=== PATIENT | female | born 1950 | race Caucasian/White ===

== ENCOUNTER 2019-10-22 15:55 | Inpatient (IN) ==
[2019-10-22] MEDS ORDERED: Ondansetron 4 MG/2 ML VIAL IVP PRN (19:24)
[2019-10-22] MEDS ORDERED: Naloxone 0.4 MG/ML INJ IVP PRN (19:24)
[2019-10-22] MEDS ORDERED: 0.9 % Sodium Chloride 1,000 ML IVC SCH ×2 (19:30→21:08)
[2019-10-22 21:57] LABS: Basophils % 0.2 %; Eosinophils % 0.2 %; Hematocrit 32.5 % (35.3-44.9); Hemoglobin 10.6 g/dL (11.5-15.4); Immature Granulocytes % 0.9 % (0-4); Lymphocytes # 0.9 K/mcL (0.6-4.6); Lymphocytes % 5.6 %; Mean Corpuscular HGB Conc 32.6 g/dL (31.6-35.5); Mean Corpuscular Hemoglobin 27.5 pg (28.0-33.3); Mean Corpuscular Volume 84.4 fL (83.0-100.0); Mean Platelet Volume 9.2 fL (9.4-12.4); Monocytes % 6.2 %; Neutrophils # 14.1 K/mcL (1.6-8.9); Platelet Count 367 K/mcL (140-400); Red Blood Count 3.85 M/mcL (3.82-4.97); Red Cell Distribution Width 15.2 % (11.5-14.5); Segmented Neutrophils % 86.9 %; White Blood Count 16.2 K/mcL (4.3-11.1)
[2019-10-22] MEDS: Ringers Solution, Lactated 1,000 ML IVC SCH (22:12)
[2019-10-22] MEDS: cefTRIAXone 1,000 MG in Water for inj. (sterile) 10 ML IVPB SCH (22:12)
[2019-10-22 22:18] LABS: Albumin 2.4 g/dL (3.5-5.7); Albumin/Globulin Ratio 0.6 (1.1-2.2); Bilirubin,Direct 0.1 mg/dL (0.0-0.2); Bilirubin,Indirect 0.3 mg/dL (0.0-1.0); Bilirubin,Total 0.4 mg/dL (0.3-1.0); Calcium 8.2 mg/dL (8.6-10.3); Globulin 4.1 g/dL (2.4-3.5); Potassium 3.5 mEq/L (3.5-5.1); Total Protein 6.5 g/dL (6.4-8.9)
[2019-10-23 01:47] LABS: Sodium, Urine 54.6 mEq/L
[2019-10-23 02:46] LABS: Basophils % 0.3 %; Eosinophils % 0.2 %; Hematocrit 28.8 % (35.3-44.9); Hemoglobin 9.6 g/dL (11.5-15.4); Lymphocytes # 0.9 K/mcL (0.6-4.6); Lymphocytes % 6.7 %; Mean Corpuscular HGB Conc 33.3 g/dL (31.6-35.5); Mean Corpuscular Hemoglobin 28.1 pg (28.0-33.3); Mean Corpuscular Volume 84.2 fL (83.0-100.0); Mean Platelet Volume 9.6 fL (9.4-12.4); Monocytes % 7.2 %; Neutrophils # 11.8 K/mcL (1.6-8.9); Platelet Count 328 K/mcL (140-400); Red Blood Count 3.42 M/mcL (3.82-4.97); Red Cell Distribution Width 15.1 % (11.5-14.5); Segmented Neutrophils % 84.6 %; White Blood Count 13.9 K/mcL (4.3-11.1)
[2019-10-23 03:04] LABS: Albumin 2.2 g/dL (3.5-5.7); Albumin/Globulin Ratio 0.6 (1.1-2.2); Bilirubin,Total 0.4 mg/dL (0.3-1.0); Calcium 7.6 mg/dL (8.6-10.3); Globulin 3.8 g/dL (2.4-3.5); Potassium 3.2 mEq/L (3.5-5.1)
[2019-10-23] MEDS: Ringers Solution, Lactated 1,000 ML IVC SCH ×3 (05:37→20:19)
[2019-10-23] MEDS ORDERED: cefTRIAXone 1,000 MG in Water for inj. (sterile) 10 ML IVP SCH (09:00)
[2019-10-23] MEDS: Gabapentin 100 MG CAPSULE PO SCH ×2 (15:32→20:18)
[2019-10-23] MEDS: ALPRAZolam 1 MG TABLET PO SCH ×2 (15:36→20:18)
[2019-10-23] MEDS: cefTRIAXone 1,000 MG in Water for inj. (sterile) 10 ML IVPB SCH (20:19)
[2019-10-23] MEDS ORDERED: rOPINIRole 1 MG TABLET PO SCH (21:00)
[2019-10-24 02:10] LABS: Hematocrit 27.1 % (35.3-44.9); Hemoglobin 8.8 g/dL (11.5-15.4); Mean Corpuscular HGB Conc 32.5 g/dL (31.6-35.5); Mean Corpuscular Hemoglobin 27.6 pg (28.0-33.3); Mean Platelet Volume 9.5 fL (9.4-12.4); Platelet Count 276 K/mcL (140-400); Red Blood Count 3.19 M/mcL (3.82-4.97); Red Cell Distribution Width 15.4 % (11.5-14.5); White Blood Count 10.7 K/mcL (4.3-11.1)
[2019-10-24 02:32] LABS: Calcium 7.5 mg/dL (8.6-10.3); Potassium 4.2 mEq/L (3.5-5.1)
[2019-10-24] MEDS: Ringers Solution, Lactated 1,000 ML IVC SCH (04:28)
[2019-10-24] MEDS: ALPRAZolam 1 MG TABLET PO SCH ×2 (07:57→20:03)
[2019-10-24] MEDS: Gabapentin 100 MG CAPSULE PO SCH (07:57)
[2019-10-24] MEDS ORDERED: Lidocaine -MPF 2% 5 ML VIAL ONE (08:05)
[2019-10-24] MEDS ORDERED: Famotidine 20 MG/2 ML VIAL ONE (08:05)
[2019-10-24] MEDS ORDERED: Acetaminophen IV 1,000 MG/100 ML INFUS..BTL ONE (08:05)
[2019-10-24] MEDS ORDERED: *HR* FentaNYL (PF) 100 MCG/2 ML VIAL ONE (08:15)
[2019-10-24] MEDS ORDERED: *HR* Propofol 200 MG/20 ML VIAL IVP ONE (08:15)
[2019-10-24] MEDS ORDERED: Lidocaine -MPF 2% 2 ML VIAL ONE (08:16)
[2019-10-24] MEDS ORDERED: Ondansetron 4 MG/2 ML VIAL ONE (08:16)
[2019-10-24] MEDS ORDERED: Dexamethasone 4 MG/ML VIAL ONE (08:16)
[2019-10-24] MEDS ORDERED: Isovue-300 50ML VIAL ONE (08:55)
[2019-10-24] MEDS ORDERED: *HR* HYDROMORPHONE 2 MG/ML VIAL ONE (09:05)
[2019-10-24] MEDS ORDERED: Ondansetron 4 MG/2 ML VIAL IVP PRN (10:47)
[2019-10-24] MEDS ORDERED: Naloxone 0.4 MG/ML INJ IVP PRN (10:47)
[2019-10-24] MEDS ORDERED: Gabapentin 100 MG CAPSULE PO SCH (15:00)
[2019-10-24] MEDS ORDERED: ALPRAZolam 1 MG TABLET PO SCH (15:00)
[2019-10-24] MEDS: Iron Sucrose Complex 400 MG in 0.9 % Sodium Chloride 250 ML IVPB SCH (16:19)
[2019-10-24] MEDS: rOPINIRole 1 MG TABLET PO SCH (20:02)
[2019-10-24] MEDS ORDERED: cefTRIAXone 1,000 MG in Water for inj. (sterile) 10 ML IVPB SCH (21:00)
[2019-10-25 07:26] LABS: Hematocrit 30.3 % (35.3-44.9); Hemoglobin 9.6 g/dL (11.5-15.4); Mean Corpuscular HGB Conc 31.7 g/dL (31.6-35.5); Mean Corpuscular Hemoglobin 27.9 pg (28.0-33.3); Mean Corpuscular Volume 88.1 fL (83.0-100.0); Mean Platelet Volume 9.6 fL (9.4-12.4); Platelet Count 260 K/mcL (140-400); Red Blood Count 3.44 M/mcL (3.82-4.97); Red Cell Distribution Width 15.2 % (11.5-14.5); White Blood Count 10.5 K/mcL (4.3-11.1)
[2019-10-25 07:46] LABS: Calcium 8.1 mg/dL (8.6-10.3); Potassium 4.1 mEq/L (3.5-5.1)
[2019-10-25] MEDS ORDERED: Amoxicillin/Clavulanate 500 MG TABLET PO SCH (08:36)
[2019-10-25] MEDS: Iron Sucrose Complex 400 MG in 0.9 % Sodium Chloride 250 ML IVPB SCH (10:24)
[2019-10-25] MEDS: ALPRAZolam 1 MG TABLET PO SCH ×2 (11:05→20:57)
[2019-10-25] MEDS: Acetaminophen 325 MG TABLET PO PRN (13:14)
[2019-10-25] MEDS: Amoxicillin 500 MG CAPSULE PO SCH (20:57)
[2019-10-25] MEDS: rOPINIRole 1 MG TABLET PO SCH (20:57)
[2019-10-26 03:16] LABS: Potassium 3.9 mEq/L (3.5-5.1)
[2019-10-26] MEDS: Acetaminophen 325 MG TABLET PO PRN ×2 (10:35→20:35)
[2019-10-26] MEDS: Iron Sucrose Complex 400 MG in 0.9 % Sodium Chloride 250 ML IVPB SCH (10:36)
[2019-10-26] MEDS: Amoxicillin 500 MG CAPSULE PO SCH ×2 (10:36→20:34)
[2019-10-26] MEDS: *HR* Heparin 5,000 UNIT/ML VIAL SQ SCH (17:21)
[2019-10-26] MEDS: rOPINIRole 1 MG TABLET PO SCH (20:34)
[2019-10-26] MEDS: ALPRAZolam 1 MG TABLET PO SCH (20:35)
[2019-10-27 02:52] LABS: Hematocrit 28.6 % (35.3-44.9); Hemoglobin 8.8 g/dL (11.5-15.4); Mean Corpuscular HGB Conc 30.8 g/dL (31.6-35.5); Mean Corpuscular Hemoglobin 27.3 pg (28.0-33.3); Mean Corpuscular Volume 88.8 fL (83.0-100.0); Mean Platelet Volume 10.1 fL (9.4-12.4); Platelet Count 208 K/mcL (140-400); Red Blood Count 3.22 M/mcL (3.82-4.97); Red Cell Distribution Width 15.4 % (11.5-14.5); White Blood Count 11.7 K/mcL (4.3-11.1)
[2019-10-27 03:08] LABS: Calcium 7.7 mg/dL (8.6-10.3); Potassium 3.8 mEq/L (3.5-5.1)
[2019-10-27] MEDS: *HR* Heparin 5,000 UNIT/ML VIAL SQ SCH ×2 (06:39→17:08)
[2019-10-27] MEDS: Amoxicillin 500 MG CAPSULE PO SCH ×2 (07:35→20:27)
[2019-10-27] MEDS: Ringers Solution, Lactated 1,000 ML IVC SCH (14:12)
[2019-10-27] MEDS: rOPINIRole 1 MG TABLET PO SCH (20:27)
[2019-10-27] MEDS: Acetaminophen 325 MG TABLET PO PRN (20:29)
[2019-10-27] MEDS: ALPRAZolam 1 MG TABLET PO SCH (20:29)
[2019-10-27 21:25] LABS: Calcium 8.1 mg/dL (8.6-10.3); Potassium 4.9 mEq/L (3.5-5.1)
[2019-10-28] MEDS: Ringers Solution, Lactated 1,000 ML IVC SCH (01:00)
[2019-10-28] MEDS: *HR* Heparin 5,000 UNIT/ML VIAL SQ SCH ×2 (05:30→17:06)
[2019-10-28 07:02] LABS: Potassium 3.8 mEq/L (3.5-5.1)
[2019-10-28] MEDS: Amoxicillin 500 MG CAPSULE PO SCH ×2 (07:42→19:47)
[2019-10-28] MEDS: ALPRAZolam 1 MG TABLET PO SCH (19:47)
[2019-10-28] MEDS: rOPINIRole 1 MG TABLET PO SCH (19:48)
[2019-10-29 02:30] LABS: Calcium 7.7 mg/dL (8.6-10.3); Potassium 3.7 mEq/L (3.5-5.1)
[2019-10-29] MEDS: *HR* Heparin 5,000 UNIT/ML VIAL SQ SCH ×2 (05:59→16:51)
[2019-10-29] MEDS: Acetaminophen 325 MG TABLET PO PRN (07:49)
[2019-10-29] MEDS: Amoxicillin 500 MG CAPSULE PO SCH ×2 (07:49→20:17)
[2019-10-29 10:36] LABS: Basophils # 0.1 K/mcL (0.0-0.2); Basophils % 0.5 %; Eosinophils # 0.1 K/mcL (0.0-0.6); Eosinophils % 0.9 %; Hematocrit 28.9 % (35.3-44.9); Hemoglobin 9.4 g/dL (11.5-15.4); Immature Granulocytes % 4.7 % (0-4); Lymphocytes # 1.1 K/mcL (0.6-4.6); Lymphocytes % 9.3 %; Mean Corpuscular HGB Conc 32.5 g/dL (31.6-35.5); Mean Corpuscular Hemoglobin 28.1 pg (28.0-33.3); Mean Corpuscular Volume 86.3 fL (83.0-100.0); Mean Platelet Volume 10.5 fL (9.4-12.4); Monocytes # 0.8 K/mcL (0.0-1.3); Monocytes % 6.7 %; Platelet Count 192 K/mcL (140-400); Red Blood Count 3.35 M/mcL (3.82-4.97); Red Cell Distribution Width 15.4 % (11.5-14.5); Segmented Neutrophils % 77.9 %; White Blood Count 11.6 K/mcL (4.3-11.1)
[2019-10-29 10:52] LABS: % Iron Saturation 24 % (15-50); Iron 36 mcg/dL (50-170); Transferrin 108 mg/dL (203-362)
[2019-10-29] MEDS: ALPRAZolam 1 MG TABLET PO SCH (20:16)
[2019-10-29] MEDS: rOPINIRole 1 MG TABLET PO SCH (20:17)
[2019-10-30] MEDS: *HR* Heparin 5,000 UNIT/ML VIAL SQ SCH ×2 (05:38→16:55)
[2019-10-30 08:05] LABS: Calcium 7.9 mg/dL (8.6-10.3); Potassium 3.4 mEq/L (3.5-5.1)
[2019-10-30] MEDS: Amoxicillin 500 MG CAPSULE PO SCH ×2 (08:16→20:05)
[2019-10-30] MEDS ORDERED: Fluconazole 100 MG TABLET PO ONE (14:03)
[2019-10-30] MEDS: Iron Sucrose Complex 200 MG in 0.9 % Sodium Chloride 100 ML IVPB SCH (16:55)
[2019-10-30] MEDS: rOPINIRole 1 MG TABLET PO SCH (20:05)
[2019-10-31] MEDS: *HR* Heparin 5,000 UNIT/ML VIAL SQ SCH (06:17)
[2019-10-31 06:58] LABS: Calcium 8.1 mg/dL (8.6-10.3); Potassium 4.1 mEq/L (3.5-5.1)
[2019-10-31 07:22] VITALS: BP 135/79
[2019-10-31] MEDS: Iron Sucrose Complex 200 MG in 0.9 % Sodium Chloride 100 ML IVPB SCH (07:24)
[2019-10-31] MEDS: Amoxicillin 500 MG CAPSULE PO SCH (09:31)
== END 2019-10-31 16:05 | DRG 659 ==
LOC: INTOOBSV 18:06 → 2NENU 18:06 → SUATTDRO 10-24 17:17
PROVIDERS: ADMIT Family Medicine; ATTEND Internal Medicine

== ENCOUNTER 2020-08-24 01:44 | Observation (INO) ==
[2020-08-24] MEDS ORDERED: Ondansetron 4 MG/2 ML VIAL IVP PRN (04:34)
[2020-08-24] MEDS ORDERED: Naloxone 0.4 MG/ML INJ IVP PRN (04:34)
[2020-08-24] MEDS ORDERED: Ringers Solution, Lactated 500 ML IVC SCH (04:45)
[2020-08-24] MEDS ORDERED: ALPRAZolam 1 MG TABLET PO PRN (06:37)
[2020-08-24] MEDS: *HR* Heparin 5,000 UNIT/ML VIAL SQ SCH ×2 (07:05→14:32)
[2020-08-24 07:34] LABS: Calcium 7.7 mg/dL (8.6-10.3); Potassium 3.5 mEq/L (3.5-5.1)
[2020-08-24] MEDS ORDERED: NON-FORMULARY MEDICATION 1 EACH EACH (Cranberry 500 MG) PO SCH (09:00)
[2020-08-24] MEDS ORDERED: Metoprolol XL (24 HR) Succ 50 MG TAB.ER.24H PO SCH (09:00)
[2020-08-24 16:48] VITALS: BP 155/90
== END 2020-08-24 19:10 | disposition home health service (06) ==
LOC: CDU → SUATTDRO 04:20
PROVIDERS: ADMIT Internal Medicine; ATTEND Student in an Organized Health Care Education/Training Program

== ENCOUNTER 2020-11-21 20:15 | Inpatient (IN) ==
[2020-11-21] MEDS ORDERED: Naloxone 0.4 MG/ML INJ IVP PRN (22:47)
[2020-11-21] MEDS ORDERED: Ondansetron 4 MG/2 ML VIAL IVP PRN (22:52)
[2020-11-21] MEDS ORDERED: Ondansetron 4 MG/2 ML VIAL ONE (22:52)
[2020-11-21] MEDS ORDERED: Norepinephrine 4 MG/254 ML IV.SOLN IVC SCH (23:15)
[2020-11-21] MEDS ORDERED: 0.9 % Sodium Chloride 1,000 ML IVC SCH (23:30)
[2020-11-21 23:42] LABS: Basophils # 0.1 K/mcL (0.0-0.2); Basophils % 0.7 %; Eosinophils # 0.1 K/mcL (0.0-0.6); Eosinophils % 0.3 %; Hematocrit 41.5 % (35.3-44.9); Hemoglobin 12.5 g/dL (11.5-15.4); Immature Granulocytes % 2.7 % (0-4); Lymphocytes # 1.4 K/mcL (0.6-4.6); Lymphocytes % 6.9 %; Mean Corpuscular HGB Conc 30.1 g/dL (31.6-35.5); Mean Corpuscular Hemoglobin 30.6 pg (28.0-33.3); Mean Corpuscular Volume 101.5 fL (83.0-100.0); Mean Platelet Volume 8.8 fL (9.4-12.4); Monocytes # 1.2 K/mcL (0.0-1.3); Neutrophils # 16.4 K/mcL (1.6-8.9); Platelet Count 267 K/mcL (140-400); Red Blood Count 4.09 M/mcL (3.82-4.97); Red Cell Distribution Width 13.7 % (11.5-14.5); Segmented Neutrophils % 83.4 %; White Blood Count 19.6 K/mcL (4.3-11.1)
[2020-11-21 23:47] LABS: INR 1.1; Prothrombin Time 12.8 Seconds (9.4-12.1)
[2020-11-21 23:49] LABS: VBG Ionized Calcium 1.06 mmol/L (1.15-1.35)
[2020-11-21 23:50] LABS: Activated Partial Thrombo Time 24.2 Seconds (26.0-36.0)
[2020-11-22 00:09] LABS: Alanine Aminotransferase 12 Units/L (7-52); Albumin 2.7 g/dL (3.5-5.7); Alkaline Phosphatase 95 Units/L (34-104); Aspartate Amino Transferase 8 Units/L (13-39); BUN/Creatinine Ratio 24 (6-26); Bilirubin,Total 0.2 mg/dL (0.3-1.0); Blood Urea Nitrogen 86 mg/dL (8-23); Calcium 7.3 mg/dL (8.6-10.3); Carbon Dioxide 10 mEq/L (23-29); Chloride 114 mEq/L (98-107); Glucose 124 mg/dL (70-105); Magnesium 1.9 mg/dL (1.6-2.6); Osmolality,Calculated 312 (280-300); Phosphorous 4.6 mg/dL (2.7-4.5); Potassium 3.9 mEq/L (3.5-5.1); Sodium 137 mEq/L (136-145); Total Protein 6.5 g/dL (6.4-8.9); eGFR For African Americans 15 (> 60); eGFR For Non-African Americans 13 (> 60)
[2020-11-22 00:10] LABS: Albumin/Globulin Ratio 0.7 (1.1-2.2); Globulin 3.8 g/dL (2.4-3.5); Troponin I < 0.03 ng/mL (< 0.04)
[2020-11-22] MEDS: Pantoprazole 40 MG VIAL IVP SCH ×2 (00:33→07:54)
[2020-11-22] MEDS: Piperacillin/Tazobactam 3.375 GM in 0.9 % Sodium Chloride Mini Bag 100 ML IVPB SCH ×3 (00:33→15:30)
[2020-11-22] MEDS: ALPRAZolam 1 MG TABLET PO PRN ×2 (00:33→18:44)
[2020-11-22] MEDS ORDERED: Piperacillin/Tazobactam 3.375 GM in 0.9 % Sodium Chloride Mini Bag 100 ML IVPB SCH (02:00)
[2020-11-22] MEDS ORDERED: Sodium Bicarbonate 50 MEQ in 0.45 % Sodium Chloride 1,000 ML IVC SCH (03:30)
[2020-11-22] MEDS ORDERED: Acetaminophen 325 MG TABLET PO PRN (04:20)
[2020-11-22 04:28] LABS: ABG Base Excess -16 mEq/L (-2 to 3); ABG HCO3 12 mEq/L (21-27); ABG Oxygen Saturation 76 % (95-98); ABG PCO2 33 mmHg (35-45); ABG PH 7.17 pH Units (7.32-7.45); ABG PO2 51 mmHg (85-104); ABG TCO2 13 mEq/L (20-26)
[2020-11-22] MEDS: *HR* Heparin 5,000 UNIT/ML VIAL SQ SCH ×3 (04:56→19:52)
[2020-11-22 05:55] LABS: Potassium,Urine 4.2 mEq/L; Sodium, Urine 32.4 mEq/L
[2020-11-22 06:06] LABS: Calcium 7.6 mg/dL (8.6-10.3); Potassium 4.3 mEq/L (3.5-5.1)
[2020-11-22] MEDS ORDERED: Ringers Solution, Lactated 1,000 ML IVC SCH (10:30)
[2020-11-22 12:51] LABS: Albumin 2.5 g/dL (3.5-5.7); Albumin/Globulin Ratio 0.7 (1.1-2.2); Bilirubin,Direct 0.1 mg/dL (0.0-0.2); Bilirubin,Indirect 0.1 mg/dL (0.0-1.0); Bilirubin,Total 0.2 mg/dL (0.3-1.0); Globulin 3.6 g/dL (2.4-3.5); Total Protein 6.1 g/dL (6.4-8.9)
[2020-11-22 14:29] LABS: Calcium 7.4 mg/dL (8.6-10.3); Potassium 4.1 mEq/L (3.5-5.1)
[2020-11-22] MEDS: Sodium Bicarbonate 75 MEQ in 0.45 % Sodium Chloride 1,000 ML IVC SCH (16:51)
[2020-11-22 20:40] LABS: Albumin 2.4 g/dL (3.5-5.7); Albumin/Globulin Ratio 0.8 (1.1-2.2); Bilirubin,Direct 0.1 mg/dL (0.0-0.2); Bilirubin,Total 0.1 mg/dL (0.3-1.0); Calcium 7.5 mg/dL (8.6-10.3); Globulin 2.9 g/dL (2.4-3.5); Potassium 3.8 mEq/L (3.5-5.1); Total Protein 5.3 g/dL (6.4-8.9)
[2020-11-23] MEDS: ALPRAZolam 1 MG TABLET PO PRN ×2 (01:56→20:03)
[2020-11-23] MEDS ORDERED: Piperacillin/Tazobactam 3.375 GM in 0.9 % Sodium Chloride Mini Bag 100 ML IVPB SCH (02:00)
[2020-11-23] MEDS: Sodium Bicarbonate 75 MEQ in 0.45 % Sodium Chloride 1,000 ML IVC SCH (03:58)
[2020-11-23 04:16] LABS: Hematocrit 33.8 % (35.3-44.9); Mean Corpuscular HGB Conc 31.1 g/dL (31.6-35.5); Mean Corpuscular Hemoglobin 31.1 pg (28.0-33.3); Mean Platelet Volume 8.9 fL (9.4-12.4); Platelet Count 193 K/mcL (140-400); Red Blood Count 3.38 M/mcL (3.82-4.97); Red Cell Distribution Width 13.6 % (11.5-14.5)
[2020-11-23 04:21] LABS: Hemoglobin 10.5 g/dL (11.5-15.4); White Blood Count 9.2 K/mcL (4.3-11.1)
[2020-11-23 04:31] LABS: Calcium 7.4 mg/dL (8.6-10.3); Potassium 3.7 mEq/L (3.5-5.1)
[2020-11-23] MEDS: *HR* Heparin 5,000 UNIT/ML VIAL SQ SCH ×3 (06:10→19:59)
[2020-11-23] MEDS ORDERED: Ondansetron 4 MG/2 ML VIAL IVP PRN (10:16)
[2020-11-23] MEDS ORDERED: Naloxone 0.4 MG/ML INJ IVP PRN (10:16)
[2020-11-23] MEDS: Acetaminophen 325 MG TABLET PO PRN (11:24)
[2020-11-23] MEDS ORDERED: cefTRIAXone 1,000 MG in Water for inj. (sterile) 10 ML IVP SCH (14:00)
[2020-11-23] MEDS: cefTRIAXone 1,000 MG in Water for inj. (sterile) 10 ML IVP SCH (14:18)
[2020-11-24 04:24] LABS: Hematocrit 35.8 % (35.3-44.9); Hemoglobin 11.1 g/dL (11.5-15.4); Mean Corpuscular Hemoglobin 30.5 pg (28.0-33.3); Mean Corpuscular Volume 98.4 fL (83.0-100.0); Mean Platelet Volume 9.1 fL (9.4-12.4); Platelet Count 198 K/mcL (140-400); Red Blood Count 3.64 M/mcL (3.82-4.97); Red Cell Distribution Width 13.6 % (11.5-14.5); White Blood Count 7.4 K/mcL (4.3-11.1)
[2020-11-24 04:43] LABS: Calcium 7.7 mg/dL (8.6-10.3); Potassium 3.4 mEq/L (3.5-5.1)
[2020-11-24] MEDS: *HR* Heparin 5,000 UNIT/ML VIAL SQ SCH ×3 (06:10→21:58)
[2020-11-24] MEDS: ALPRAZolam 1 MG TABLET PO PRN ×2 (06:14→19:42)
[2020-11-24] MEDS: cefTRIAXone 1,000 MG in Water for inj. (sterile) 10 ML IVP SCH (16:56)
[2020-11-24] MEDS: Acetaminophen 325 MG TABLET PO PRN (19:42)
[2020-11-25] MEDS: ALPRAZolam 1 MG TABLET PO PRN ×2 (02:58→18:24)
[2020-11-25] MEDS: Acetaminophen 325 MG TABLET PO PRN ×2 (02:59→18:25)
[2020-11-25 03:57] LABS: Hemoglobin 10.7 g/dL (11.5-15.4); Mean Corpuscular HGB Conc 31.5 g/dL (31.6-35.5); Mean Corpuscular Hemoglobin 31.1 pg (28.0-33.3); Mean Corpuscular Volume 98.8 fL (83.0-100.0); Mean Platelet Volume 9.1 fL (9.4-12.4); Platelet Count 207 K/mcL (140-400); Red Blood Count 3.44 M/mcL (3.82-4.97); Red Cell Distribution Width 13.3 % (11.5-14.5)
[2020-11-25 04:15] LABS: Calcium 7.7 mg/dL (8.6-10.3); Potassium 3.4 mEq/L (3.5-5.1)
[2020-11-25] MEDS: *HR* Heparin 5,000 UNIT/ML VIAL SQ SCH ×3 (05:17→21:27)
[2020-11-25] MEDS: Cefdinir 300 MG CAPSULE PO SCH (21:27)
[2020-11-26] MEDS: Acetaminophen 325 MG TABLET PO PRN ×3 (03:09→21:05)
[2020-11-26] MEDS: ALPRAZolam 1 MG TABLET PO PRN ×3 (03:09→18:27)
[2020-11-26 03:30] LABS: Hematocrit 40.2 % (35.3-44.9); Hemoglobin 12.9 g/dL (11.5-15.4); Mean Corpuscular HGB Conc 32.1 g/dL (31.6-35.5); Mean Corpuscular Hemoglobin 31.1 pg (28.0-33.3); Mean Corpuscular Volume 96.9 fL (83.0-100.0); Mean Platelet Volume 8.8 fL (9.4-12.4); Platelet Count 188 K/mcL (140-400); Red Blood Count 4.15 M/mcL (3.82-4.97); Red Cell Distribution Width 13.1 % (11.5-14.5); White Blood Count 7.7 K/mcL (4.3-11.1)
[2020-11-26 03:41] LABS: Potassium 3.5 mEq/L (3.5-5.1)
[2020-11-26] MEDS: *HR* Heparin 5,000 UNIT/ML VIAL SQ SCH ×3 (05:31→21:05)
[2020-11-26] MEDS: Cefdinir 300 MG CAPSULE PO SCH ×2 (09:21→21:04)
[2020-11-27] MEDS: ALPRAZolam 1 MG TABLET PO PRN ×3 (05:28→20:40)
[2020-11-27] MEDS: *HR* Heparin 5,000 UNIT/ML VIAL SQ SCH ×3 (05:28→20:41)
[2020-11-27] MEDS: Acetaminophen 325 MG TABLET PO PRN ×3 (08:56→20:40)
[2020-11-27] MEDS: Cefdinir 300 MG CAPSULE PO SCH ×2 (08:56→20:41)
[2020-11-28] MEDS: ALPRAZolam 1 MG TABLET PO PRN ×4 (03:06→21:15)
[2020-11-28] MEDS: Acetaminophen 325 MG TABLET PO PRN ×4 (03:06→22:18)
[2020-11-28] MEDS: *HR* Heparin 5,000 UNIT/ML VIAL SQ SCH ×3 (05:18→21:18)
[2020-11-28] MEDS: Cefdinir 300 MG CAPSULE PO SCH ×2 (09:16→21:16)
[2020-11-29] MEDS: ALPRAZolam 1 MG TABLET PO PRN (03:31)
[2020-11-29] MEDS: *HR* Heparin 5,000 UNIT/ML VIAL SQ SCH ×2 (05:43→13:34)
[2020-11-29] MEDS: Acetaminophen 325 MG TABLET PO PRN (05:44)
[2020-11-29 08:22] VITALS: BP 121/72
[2020-11-29] MEDS: Cefdinir 300 MG CAPSULE PO SCH (09:45)
== END 2020-11-29 15:22 | DRG 871 ==
LOC: ICNU → SUATTDRO 22:47 → 2ANU 11-23 15:16
PROVIDERS: ADMIT Family Medicine; ATTEND Internal Medicine

== ENCOUNTER 2020-12-06 08:43 | Inpatient (IN) ==
[2020-12-06] MEDS ORDERED: Naloxone 0.4 MG/ML INJ IVP PRN (14:10)
[2020-12-06] MEDS ORDERED: Saline Nasal Spray 44 ML BOTTLE NS PRN (14:14)
[2020-12-06 15:35] LABS: Thyroid Stimulating Hormone 1.709 mcIU/mL (0.340-5.600); Troponin I 1.39 ng/mL (< 0.04)
[2020-12-06] MEDS: Ipratropium 1 PUFF INHALER IH SCH ×2 (15:36→19:40)
[2020-12-06] MEDS ORDERED: Perflutren Lipid Microsphere 1.3 ML in 0.9 % Sodium Chloride 8.7 ML IVP PRN (15:37)
[2020-12-06] MEDS ORDERED: *HR* Heparin 5,000 UNIT/ML VIAL IVP ONE (15:37)
[2020-12-06] MEDS ORDERED: *HR* Heparin 5,000 UNIT/ML VIAL IVP PRN ×2 (15:37)
[2020-12-06 15:41] LABS: Folate 8.8 ng/mL (3.0-16.0)
[2020-12-06 16:08] LABS: ABG Base Excess -10 mEq/L (-2 to 3); ABG HCO3 15 mEq/L (21-27); ABG Oxygen Saturation 90 % (95-98); ABG PCO2 26 mmHg (35-45); ABG PH 7.35 pH Units (7.32-7.45); ABG PO2 61 mmHg (85-104); ABG TCO2 15 mEq/L (20-26)
[2020-12-06 16:09] LABS: Chol/HDL Ratio 5.1 (0-4.9)
[2020-12-06 16:16] LABS: Estimated Average Glucose 120 mg/dl; Hemoglobin A1C 5.8 %
[2020-12-06 16:38] LABS: INR 1.2; Prothrombin Time 14.2 Seconds (9.4-12.1)
[2020-12-06 16:41] LABS: Heparin anti-factor XA UFH < 0.04 IU/mL (0.30-0.70)
[2020-12-06] MEDS: Heparin 25,000UNIT/250ML 1/2NS 25,000 UNIT/250 ML IV.SOLN IVC SCH (17:33)
[2020-12-06] MEDS: carvediloL 6.25 MG TABLET PO SCH (17:35)
[2020-12-06] MEDS ORDERED: Doxycycline 100 MG in 0.9 % Sodium Chloride Mini Bag 100 ML IVPB SCH (18:00)
[2020-12-06] MEDS ORDERED: Nitroglycerin 0.4 MG TAB.SUBL SL PRN (19:00)
[2020-12-06] MEDS ORDERED: SUMAtriptan succinate 25 MG TABLET PO PRN (19:14)
[2020-12-06] MEDS: Furosemide 40 MG/4 ML VIAL IVP SCH (19:58)
[2020-12-06] MEDS: Albumin 25% 25gram/100mL 25 GM/100 ML IV.SOLN IVPB SCH (19:58)
[2020-12-06] MEDS: Artificial Tears SOLN 15 ML BOTTLE BOTH EYES SCH (19:59)
[2020-12-06] MEDS ORDERED: *HR* Heparin 5,000 UNIT/ML VIAL SQ SCH (22:00)
[2020-12-07] MEDS: Ipratropium 1 PUFF INHALER IH SCH ×7 (00:10→23:35)
[2020-12-07 04:30] LABS: INR 1.4; Prothrombin Time 16.4 Seconds (9.4-12.1)
[2020-12-07 04:34] LABS: Hematocrit 35.5 % (35.3-44.9); Hemoglobin 10.9 g/dL (11.5-15.4); Mean Corpuscular HGB Conc 30.7 g/dL (31.6-35.5); Mean Corpuscular Hemoglobin 29.8 pg (28.0-33.3); Mean Platelet Volume 10.2 fL (9.4-12.4); Platelet Count 271 K/mcL (140-400); Red Blood Count 3.66 M/mcL (3.82-4.97); Red Cell Distribution Width 13.6 % (11.5-14.5); White Blood Count 10.5 K/mcL (4.3-11.1)
[2020-12-07 04:39] LABS: % Iron Saturation 22 % (15-50); Iron 27 mcg/dL (50-170); Transferrin 88 mg/dL (203-362)
[2020-12-07 04:40] LABS: Albumin/Globulin Ratio 0.8 (1.1-2.2); Bilirubin,Total 0.4 mg/dL (0.3-1.0); Calcium 8.5 mg/dL (8.6-10.3); Globulin 3.6 g/dL (2.4-3.5); Magnesium 1.4 mg/dL (1.6-2.6); Phosphorous 3.7 mg/dL (2.7-4.5); Potassium 3.8 mEq/L (3.5-5.1); Total Protein 6.6 g/dL (6.4-8.9)
[2020-12-07 05:49] LABS: Lymphocytes # 0.4 K/mcL (0.6-4.6); Neutrophils # 9.7 K/mcL (1.6-8.9)
[2020-12-07 05:50] LABS: Anisocytosis 1+ (Not Present); Platelet Estimate Normal (Normal)
[2020-12-07] MEDS: Albumin 25% 25gram/100mL 25 GM/100 ML IV.SOLN IVPB SCH ×2 (08:34→17:49)
[2020-12-07] MEDS: carvediloL 6.25 MG TABLET PO SCH ×2 (08:34→17:26)
[2020-12-07] MEDS: Multivit/Ca/Min/Fe/FA 1 TAB TABLET PO SCH (08:34)
[2020-12-07] MEDS: Furosemide 40 MG/4 ML VIAL IVP SCH ×2 (08:37→23:23)
[2020-12-07] MEDS ORDERED: cefTRIAXone 1,000 MG in Water for inj. (sterile) 10 ML IVP SCH (09:00)
[2020-12-07] MEDS: Artificial Tears SOLN 15 ML BOTTLE BOTH EYES SCH ×2 (09:00→19:39)
[2020-12-07] MEDS ORDERED: cefTRIAXone 1,000 MG in 0.9 % Sodium Chloride Mini Bag 100 ML IVPB SCH (09:00)
[2020-12-07] MEDS: Heparin 25,000UNIT/250ML 1/2NS 25,000 UNIT/250 ML IV.SOLN IVC SCH (17:25)
[2020-12-07] MEDS: Cefepime HCl 1,000 MG in Water for inj. (sterile) 10 ML IVP SCH (17:50)
[2020-12-07] MEDS: Doxycycline 100 MG in 0.9 % Sodium Chloride Mini Bag 100 ML IVPB SCH (17:56)
[2020-12-08] MEDS: Ipratropium 1 PUFF INHALER IH SCH ×6 (03:43→23:18)
[2020-12-08] MEDS: Cefepime HCl 1,000 MG in Water for inj. (sterile) 10 ML IVP SCH ×2 (05:27→17:45)
[2020-12-08] MEDS: Doxycycline 100 MG in 0.9 % Sodium Chloride Mini Bag 100 ML IVPB SCH ×2 (05:27→17:45)
[2020-12-08] MEDS: Albumin 25% 25gram/100mL 25 GM/100 ML IV.SOLN IVPB SCH ×2 (05:28→17:45)
[2020-12-08] MEDS: Melatonin 3 MG TABLET PO PRN ×2 (05:34→20:09)
[2020-12-08 10:10] LABS: Hematocrit 29.7 % (35.3-44.9); Mean Corpuscular HGB Conc 31.6 g/dL (31.6-35.5); Mean Corpuscular Hemoglobin 29.9 pg (28.0-33.3); Mean Corpuscular Volume 94.6 fL (83.0-100.0); Mean Platelet Volume 10.1 fL (9.4-12.4); Platelet Count 267 K/mcL (140-400); Red Blood Count 3.14 M/mcL (3.82-4.97); Red Cell Distribution Width 13.7 % (11.5-14.5); White Blood Count 14.3 K/mcL (4.3-11.1)
[2020-12-08] MEDS: Multivit/Ca/Min/Fe/FA 1 TAB TABLET PO SCH ×2 (10:12→10:13)
[2020-12-08] MEDS: Aspirin Enteric Coated 81 MG Tablet PO SCH (10:13)
[2020-12-08] MEDS: carvediloL 6.25 MG TABLET PO SCH ×2 (10:13→17:44)
[2020-12-08] MEDS: Acetaminophen 325 MG TABLET PO PRN (10:13)
[2020-12-08] MEDS: Artificial Tears SOLN 15 ML BOTTLE BOTH EYES SCH ×2 (10:14→20:09)
[2020-12-08] MEDS: Furosemide 40 MG/4 ML VIAL IVP SCH ×2 (10:14→20:08)
[2020-12-08 10:15] LABS: Hemoglobin 9.4 g/dL (11.5-15.4)
[2020-12-08 10:30] LABS: Calcium 8.6 mg/dL (8.6-10.3); Potassium 3.1 mEq/L (3.5-5.1)
[2020-12-08] MEDS: Heparin 25,000UNIT/250ML 1/2NS 25,000 UNIT/250 ML IV.SOLN IVC SCH (16:07)
[2020-12-09] MEDS: Ipratropium 1 PUFF INHALER IH SCH ×6 (03:18→23:25)
[2020-12-09] MEDS: Doxycycline 100 MG in 0.9 % Sodium Chloride Mini Bag 100 ML IVPB SCH ×2 (05:42→17:38)
[2020-12-09] MEDS: Cefepime HCl 1,000 MG in Water for inj. (sterile) 10 ML IVP SCH ×2 (05:43→17:35)
[2020-12-09 05:59] LABS: Albumin 4.2 g/dL (3.5-5.7); Albumin/Globulin Ratio 1.4 (1.1-2.2); Bilirubin,Total 0.6 mg/dL (0.3-1.0); Calcium 8.9 mg/dL (8.6-10.3); Magnesium 2.5 mg/dL (1.6-2.6); Phosphorous 3.7 mg/dL (2.7-4.5); Potassium 3.4 mEq/L (3.5-5.1); Total Protein 7.2 g/dL (6.4-8.9)
[2020-12-09 06:25] LABS: Hematocrit 29.3 % (35.3-44.9); Hemoglobin 8.9 g/dL (11.5-15.4); Lymphocytes # 0.5 K/mcL (0.6-4.6); Mean Corpuscular HGB Conc 30.4 g/dL (31.6-35.5); Mean Corpuscular Hemoglobin 29.8 pg (28.0-33.3); Mean Platelet Volume 10.9 fL (9.4-12.4); Monocytes # 0.2 K/mcL (0.0-1.3); Platelet Count 241 K/mcL (140-400); Red Blood Count 2.99 M/mcL (3.82-4.97); Red Cell Distribution Width 13.9 % (11.5-14.5); White Blood Count 7.8 K/mcL (4.3-11.1)
[2020-12-09 07:38] LABS: Neutrophils # 6.9 K/mcL (1.6-8.9); Platelet Estimate Slight Decrease (Normal); Toxic Granulation Present (Not Present)
[2020-12-09] MEDS ORDERED: Furosemide 20 MG/2 ML VIAL IVP SCH (09:00)
[2020-12-09 09:47] LABS: Hematocrit 30.2 % (35.3-44.9); Hemoglobin 9.4 g/dL (11.5-15.4)
[2020-12-09] MEDS: carvediloL 6.25 MG TABLET PO SCH ×2 (09:48→17:59)
[2020-12-09] MEDS: Aspirin Enteric Coated 81 MG Tablet PO SCH (09:49)
[2020-12-09] MEDS: Multivit/Ca/Min/Fe/FA 1 TAB TABLET PO SCH (09:50)
[2020-12-09] MEDS: Artificial Tears SOLN 15 ML BOTTLE BOTH EYES SCH ×2 (09:54→19:52)
[2020-12-09] MEDS: *HR* Heparin 5,000 UNIT/ML VIAL SQ SCH ×3 (10:32→19:54)
[2020-12-09] MEDS ORDERED: Saliva Stimulant 44.3ml BOTTLE PO PRN ×2 (15:38→15:43)
[2020-12-09] MEDS ORDERED: Chloraseptic Spray 177 ML BOTTLE MM PRN (15:43)
[2020-12-09] MEDS ORDERED: NIFEdipine XL (24 HR) 30 MG TAB.ER.24 PO SCH (16:15)
[2020-12-09] MEDS ORDERED: carvediloL 6.25 MG TABLET PO SCH ×2 (17:00)
[2020-12-09] MEDS: Chlorhexidine Rinse 15 ML MOUTHWASH MM SCH (19:52)
[2020-12-10] MEDS: Ipratropium 1 PUFF INHALER IH SCH ×6 (03:43→23:35)
[2020-12-10] MEDS: Cefepime HCl 1,000 MG in Water for inj. (sterile) 10 ML IVP SCH ×2 (05:35→16:14)
[2020-12-10] MEDS: Doxycycline 100 MG in 0.9 % Sodium Chloride Mini Bag 100 ML IVPB SCH (05:35)
[2020-12-10] MEDS: *HR* Heparin 5,000 UNIT/ML VIAL SQ SCH ×3 (05:36→22:48)
[2020-12-10 07:36] LABS: Hematocrit 32.2 % (35.3-44.9); Mean Corpuscular HGB Conc 31.1 g/dL (31.6-35.5); Mean Corpuscular Hemoglobin 30.6 pg (28.0-33.3); Mean Corpuscular Volume 98.5 fL (83.0-100.0); Mean Platelet Volume 10.7 fL (9.4-12.4); Nucleated Red Blood Cells 0.1 /100 WBC (0); Platelet Count 298 K/mcL (140-400); Red Blood Count 3.27 M/mcL (3.82-4.97); Red Cell Distribution Width 13.5 % (11.5-14.5)
[2020-12-10 07:38] LABS: White Blood Count 13.7 K/mcL (4.3-11.1)
[2020-12-10 07:55] LABS: Calcium 8.6 mg/dL (8.6-10.3); Magnesium 2.2 mg/dL (1.6-2.6); Phosphorous 2.4 mg/dL (2.7-4.5); Potassium 3.4 mEq/L (3.5-5.1)
[2020-12-10 07:57] LABS: Lactate Dehydrogenase 397 Units/L (140-271)
[2020-12-10 08:30] LABS: Lymphocytes # 0.6 K/mcL (0.6-4.6); Monocytes # 0.6 K/mcL (0.0-1.3); Neutrophils # 11.8 K/mcL (1.6-8.9); Platelet Estimate Normal (Normal)
[2020-12-10 08:31] LABS: Large Platelets Present (Not Present)
[2020-12-10 09:24] LABS: C-Reactive Protein 46 mg/L (Less than 10); Ferritin > 1500 ng/mL (10-120)
[2020-12-10] MEDS: carvediloL 6.25 MG TABLET PO SCH ×2 (09:33→16:14)
[2020-12-10] MEDS: Aspirin Enteric Coated 81 MG Tablet PO SCH (09:33)
[2020-12-10] MEDS: Multivit/Ca/Min/Fe/FA 1 TAB TABLET PO SCH (09:33)
[2020-12-10] MEDS: Artificial Tears SOLN 15 ML BOTTLE BOTH EYES SCH ×2 (09:35→19:53)
[2020-12-10] MEDS: Chlorhexidine Rinse 15 ML MOUTHWASH MM SCH ×2 (09:35→19:53)
[2020-12-10] MEDS ORDERED: Iron Sucrose Complex 400 MG in 0.9 % Sodium Chloride 250 ML IVPB ONE (15:28)
[2020-12-10] MEDS: ALPRAZolam 1 MG TABLET PO PRN (22:45)
[2020-12-11 02:57] LABS: Hematocrit 34.1 % (35.3-44.9); Hemoglobin 10.6 g/dL (11.5-15.4); Mean Corpuscular HGB Conc 31.1 g/dL (31.6-35.5); Mean Corpuscular Hemoglobin 30.7 pg (28.0-33.3); Mean Corpuscular Volume 98.8 fL (83.0-100.0); Mean Platelet Volume 11.1 fL (9.4-12.4); Nucleated Red Blood Cells 0.2 /100 WBC (0); Platelet Count 337 K/mcL (140-400); Red Blood Count 3.45 M/mcL (3.82-4.97); Red Cell Distribution Width 13.4 % (11.5-14.5); White Blood Count 18.3 K/mcL (4.3-11.1)
[2020-12-11 03:20] LABS: BUN/Creatinine Ratio 48 (6-26); Blood Urea Nitrogen 64 mg/dL (8-23); C-Reactive Protein 29 mg/L (Less than 10); Calcium 8.7 mg/dL (8.6-10.3); Carbon Dioxide 22 mEq/L (23-29); Chloride 112 mEq/L (98-107); Glucose 171 mg/dL (70-105); Lactate Dehydrogenase 456 Units/L (140-271); Magnesium 2.2 mg/dL (1.6-2.6); Osmolality,Calculated 324 (280-300); Phosphorous 1.9 mg/dL (2.7-4.5); Potassium 4.2 mEq/L (3.5-5.1); Sodium 146 mEq/L (136-145); eGFR For African Americans 48 (> 60); eGFR For Non-African Americans 40 (> 60)
[2020-12-11 03:34] LABS: Lymphocytes # 1.5 K/mcL (0.6-4.6); Monocytes # 0.7 K/mcL (0.0-1.3); Neutrophils # 13.9 K/mcL (1.6-8.9); Platelet Estimate Normal (Normal); Reactive Lymphocytes Present (Not Present); Toxic Granulation Present (Not Present)
[2020-12-11 03:37] LABS: Ferritin > 1500 ng/mL (10-120)
[2020-12-11] MEDS: Ipratropium 1 PUFF INHALER IH SCH ×6 (04:27→23:09)
[2020-12-11] MEDS: *HR* Heparin 5,000 UNIT/ML VIAL SQ SCH ×2 (04:43→16:56)
[2020-12-11] MEDS: Cefepime HCl 1,000 MG in Water for inj. (sterile) 10 ML IVP SCH ×2 (04:43→16:56)
[2020-12-11] MEDS ORDERED: Potassium Phosphate 44 MEQ in 0.9 % Sodium Chloride 250 ML IVPB ONE (07:40)
[2020-12-11] MEDS: Chlorhexidine Rinse 15 ML MOUTHWASH MM SCH (10:00)
[2020-12-11] MEDS: Artificial Tears SOLN 15 ML BOTTLE BOTH EYES SCH ×2 (10:01→20:12)
[2020-12-11] MEDS: carvediloL 6.25 MG TABLET PO SCH ×2 (10:01→16:55)
[2020-12-11] MEDS: Cholecalciferol (D-3) 1,000 UNIT (25MCG) TABLET PO SCH (10:01)
[2020-12-11] MEDS: Multivit/Ca/Min/Fe/FA 1 TAB TABLET PO SCH (10:01)
[2020-12-11] MEDS: Aspirin Enteric Coated 81 MG Tablet PO SCH (10:01)
[2020-12-11] MEDS: ALPRAZolam 1 MG TABLET PO PRN (20:13)
[2020-12-12] MEDS: ALPRAZolam 1 MG TABLET PO PRN (03:27)
[2020-12-12 03:30] LABS: BUN/Creatinine Ratio 51 (6-26); Blood Urea Nitrogen 53 mg/dL (8-23); Calcium 8.7 mg/dL (8.6-10.3); Carbon Dioxide 24 mEq/L (23-29); Chloride 112 mEq/L (98-107); Glucose 137 mg/dL (70-105); Osmolality,Calculated 319 (280-300); Potassium 4.6 mEq/L (3.5-5.1); Sodium 146 mEq/L (136-145); eGFR For African Americans > 60 (> 60); eGFR For Non-African Americans 53 (> 60)
[2020-12-12 03:35] LABS: C-Reactive Protein 18 mg/L (Less than 10); Lactate Dehydrogenase 462 Units/L (140-271)
[2020-12-12] MEDS: Ipratropium 1 PUFF INHALER IH SCH ×5 (03:36→20:09)
[2020-12-12 03:56] LABS: Ferritin > 1500 ng/mL (10-120)
[2020-12-12] MEDS: *HR* Heparin 5,000 UNIT/ML VIAL SQ SCH ×2 (05:04→18:06)
[2020-12-12 08:33] LABS: Hematocrit 32.9 % (35.3-44.9); Hemoglobin 10.2 g/dL (11.5-15.4); Mean Corpuscular Hemoglobin 30.4 pg (28.0-33.3); Mean Corpuscular Volume 97.9 fL (83.0-100.0); Mean Platelet Volume 10.9 fL (9.4-12.4); Platelet Count 314 K/mcL (140-400); Red Blood Count 3.36 M/mcL (3.82-4.97); Red Cell Distribution Width 13.3 % (11.5-14.5); White Blood Count 24.8 K/mcL (4.3-11.1)
[2020-12-12] MEDS: carvediloL 6.25 MG TABLET PO SCH ×2 (08:46→18:06)
[2020-12-12] MEDS: Aspirin Enteric Coated 81 MG Tablet PO SCH (08:46)
[2020-12-12] MEDS: Cholecalciferol (D-3) 1,000 UNIT (25MCG) TABLET PO SCH (08:46)
[2020-12-12] MEDS: lisinopriL 5 MG TABLET PO SCH (08:46)
[2020-12-12] MEDS: Multivit/Ca/Min/Fe/FA 1 TAB TABLET PO SCH (08:47)
[2020-12-12] MEDS: Artificial Tears SOLN 15 ML BOTTLE BOTH EYES SCH ×2 (10:40→20:44)
[2020-12-12] MEDS ORDERED: Saliva Stimulant 44.3ml BOTTLE PO PRN (17:25)
[2020-12-13] MEDS: Ipratropium 1 PUFF INHALER IH SCH ×7 (00:19→23:18)
[2020-12-13 03:30] LABS: Hematocrit 28.9 % (35.3-44.9); Mean Corpuscular HGB Conc 31.1 g/dL (31.6-35.5); Mean Corpuscular Hemoglobin 30.4 pg (28.0-33.3); Mean Corpuscular Volume 97.6 fL (83.0-100.0); Mean Platelet Volume 11.5 fL (9.4-12.4); Nucleated Red Blood Cells 0.2 /100 WBC (0); Platelet Count 265 K/mcL (140-400); Red Blood Count 2.96 M/mcL (3.82-4.97); Red Cell Distribution Width 13.2 % (11.5-14.5); White Blood Count 25.9 K/mcL (4.3-11.1)
[2020-12-13 03:40] LABS: Alanine Aminotransferase 9 Units/L (7-52); Albumin 3.1 g/dL (3.5-5.7); Albumin/Globulin Ratio 1.3 (1.1-2.2); Alkaline Phosphatase 54 Units/L (34-104); Aspartate Amino Transferase 19 Units/L (13-39); BUN/Creatinine Ratio 54 (6-26); Bilirubin,Total 0.7 mg/dL (0.3-1.0); Blood Urea Nitrogen 52 mg/dL (8-23); C-Reactive Protein 8 mg/L (Less than 10); Calcium 8.3 mg/dL (8.6-10.3); Carbon Dioxide 22 mEq/L (23-29); Chloride 111 mEq/L (98-107); Globulin 2.4 g/dL (2.4-3.5); Glucose 136 mg/dL (70-105); Magnesium 1.9 mg/dL (1.6-2.6); Osmolality,Calculated 310 (280-300); Phosphorous 2.8 mg/dL (2.7-4.5); Potassium 4.6 mEq/L (3.5-5.1); Sodium 142 mEq/L (136-145); Total Protein 5.5 g/dL (6.4-8.9); eGFR For African Americans > 60 (> 60); eGFR For Non-African Americans 57 (> 60)
[2020-12-13 03:58] LABS: Ferritin > 1500 ng/mL (10-120)
[2020-12-13 04:46] LABS: Neutrophils # 21.2 K/mcL (1.6-8.9); Platelet Estimate Normal (Normal)
[2020-12-13 04:47] LABS: Anisocytosis 1+ (Not Present)
[2020-12-13] MEDS: *HR* Heparin 5,000 UNIT/ML VIAL SQ SCH ×2 (06:29→16:32)
[2020-12-13] MEDS ORDERED: Furosemide 20 MG/2 ML VIAL IVP SCH (09:00)
[2020-12-13] MEDS: Cholecalciferol (D-3) 1,000 UNIT (25MCG) TABLET PO SCH (09:28)
[2020-12-13] MEDS: Artificial Tears SOLN 15 ML BOTTLE BOTH EYES SCH ×2 (09:28→21:50)
[2020-12-13] MEDS: Aspirin Enteric Coated 81 MG Tablet PO SCH (09:28)
[2020-12-13] MEDS: lisinopriL 5 MG TABLET PO SCH (09:28)
[2020-12-13] MEDS: carvediloL 6.25 MG TABLET PO SCH ×2 (09:28→16:12)
[2020-12-13] MEDS: Multivit/Ca/Min/Fe/FA 1 TAB TABLET PO SCH (09:28)
[2020-12-13] MEDS: Spironolactone 12.5 MG TABLET PO SCH (09:29)
[2020-12-13] MEDS: ALPRAZolam 1 MG TABLET PO PRN (16:12)
[2020-12-13] MEDS: Melatonin 3 MG TABLET PO PRN (21:15)
[2020-12-14] MEDS: ALPRAZolam 1 MG TABLET PO PRN (02:24)
[2020-12-14 02:55] LABS: Mean Platelet Volume 11.4 fL (9.4-12.4); Nucleated Red Blood Cells 0.2 /100 WBC (0)
[2020-12-14 02:57] LABS: Hemoglobin 8.6 g/dL (11.5-15.4); Mean Corpuscular HGB Conc 30.7 g/dL (31.6-35.5); Mean Corpuscular Hemoglobin 30.6 pg (28.0-33.3); Mean Corpuscular Volume 99.6 fL (83.0-100.0); Platelet Count 280 K/mcL (140-400); Red Blood Count 2.81 M/mcL (3.82-4.97); Red Cell Distribution Width 13.2 % (11.5-14.5); White Blood Count 28.2 K/mcL (4.3-11.1)
[2020-12-14 03:05] LABS: Alanine Aminotransferase 9 Units/L (7-52); Albumin 2.9 g/dL (3.5-5.7); Albumin/Globulin Ratio 1.2 (1.1-2.2); Alkaline Phosphatase 55 Units/L (34-104); Aspartate Amino Transferase 17 Units/L (13-39); BUN/Creatinine Ratio 54 (6-26); Bilirubin,Total 0.5 mg/dL (0.3-1.0); Blood Urea Nitrogen 56 mg/dL (8-23); C-Reactive Protein 6 mg/L (Less than 10); Carbon Dioxide 21 mEq/L (23-29); Chloride 109 mEq/L (98-107); Globulin 2.4 g/dL (2.4-3.5); Glucose 135 mg/dL (70-105); Magnesium 1.2 mg/dL (1.6-2.6); Osmolality,Calculated 308 (280-300); Phosphorous 2.8 mg/dL (2.7-4.5); Potassium 4.4 mEq/L (3.5-5.1); Sodium 140 mEq/L (136-145); Total Protein 5.3 g/dL (6.4-8.9); eGFR For African Americans > 60 (> 60); eGFR For Non-African Americans 53 (> 60)
[2020-12-14 03:25] LABS: Ferritin > 1500 ng/mL (10-120)
[2020-12-14] MEDS: Ipratropium 1 PUFF INHALER IH SCH ×6 (04:00→23:36)
[2020-12-14 04:20] LABS: Monocytes # 0.6 K/mcL (0.0-1.3); Neutrophils # 20.9 K/mcL (1.6-8.9); Smudge Cells Present (Not Present)
[2020-12-14 04:21] LABS: Platelet Estimate Normal (Normal)
[2020-12-14] MEDS: *HR* Enoxaparin 40 MG/0.4 ML SYRINGE SQ SCH (06:12)
[2020-12-14] MEDS: Acetaminophen 325 MG TABLET PO PRN (08:33)
[2020-12-14] MEDS: Aspirin Enteric Coated 81 MG Tablet PO SCH (08:34)
[2020-12-14] MEDS: Cholecalciferol (D-3) 1,000 UNIT (25MCG) TABLET PO SCH (08:34)
[2020-12-14] MEDS: Multivit/Ca/Min/Fe/FA 1 TAB TABLET PO SCH (08:34)
[2020-12-14] MEDS: carvediloL 6.25 MG TABLET PO SCH ×2 (08:34→17:30)
[2020-12-14] MEDS: lisinopriL 5 MG TABLET PO SCH (08:34)
[2020-12-14] MEDS: Spironolactone 12.5 MG TABLET PO SCH (08:34)
[2020-12-14] MEDS: Artificial Tears SOLN 15 ML BOTTLE BOTH EYES SCH ×2 (08:36→20:40)
[2020-12-14 16:26] LABS: Amorphous Sediment,Urine Few per hpf (None-Few); Bacteria,Urine Few per hpf (None-Few); Bilirubin,Urine Negative (Negative); Blood,Urine Large (Negative); Budding Yeast,Urine Many per hpf (None Seen); Clarity,Urine Ex.Turbid (Clear); Color,Urine Yellow (Yellow); Glucose,Urine (UA) Normal (Normal); Ketones,Urine Negative (Negative); Leukocyte Esterase,Urine Large (Negative); Nitrite,Urine Negative (Negative); Protein,Urine 200 mg/dL (Neg-Trace); RBC,Urine TNTC per hpf (0-3); Specific Gravity,Urine 1.018 (1.010-1.025); Squamous Epithelial Cell,Urine Few per hpf (None-Few); Transitional Epi Cells,Urine Few per hpf (None-Few); Urobilinogen,Urine Normal (Normal); WBC,Urine TNTC per hpf (0-3)
[2020-12-15] MEDS: ALPRAZolam 1 MG TABLET PO PRN ×2 (00:17→20:57)
[2020-12-15] MEDS: Ipratropium 1 PUFF INHALER IH SCH ×6 (04:16→23:12)
[2020-12-15 05:45] LABS: Nucleated Red Blood Cells 0.1 /100 WBC (0)
[2020-12-15 05:46] LABS: Hematocrit 24.1 % (35.3-44.9); Hemoglobin 7.2 g/dL (11.5-15.4); Mean Corpuscular HGB Conc 29.9 g/dL (31.6-35.5); Mean Corpuscular Hemoglobin 30.8 pg (28.0-33.3); Mean Platelet Volume 11.4 fL (9.4-12.4); Platelet Count 247 K/mcL (140-400); Red Blood Count 2.34 M/mcL (3.82-4.97); Red Cell Distribution Width 13.4 % (11.5-14.5); White Blood Count 27.2 K/mcL (4.3-11.1)
[2020-12-15 06:10] LABS: Alanine Aminotransferase 8 Units/L (7-52); Albumin 2.6 g/dL (3.5-5.7); Albumin/Globulin Ratio 1.3 (1.1-2.2); Alkaline Phosphatase 53 Units/L (34-104); Aspartate Amino Transferase 14 Units/L (13-39); BUN/Creatinine Ratio 52 (6-26); Bilirubin,Total 0.3 mg/dL (0.3-1.0); Blood Urea Nitrogen 54 mg/dL (8-23); Calcium 7.6 mg/dL (8.6-10.3); Carbon Dioxide 20 mEq/L (23-29); Chloride 109 mEq/L (98-107); Glucose 126 mg/dL (70-105); Magnesium 2.2 mg/dL (1.6-2.6); Osmolality,Calculated 300 (280-300); Phosphorous 2.8 mg/dL (2.7-4.5); Potassium 4.3 mEq/L (3.5-5.1); Sodium 137 mEq/L (136-145); Total Protein 4.6 g/dL (6.4-8.9); eGFR For African Americans > 60 (> 60); eGFR For Non-African Americans 53 (> 60)
[2020-12-15 06:15] LABS: Lymphocytes # 2.2 K/mcL (0.6-4.6); Monocytes # 0.5 K/mcL (0.0-1.3); Neutrophils # 21.8 K/mcL (1.6-8.9); Platelet Estimate Normal (Normal)
[2020-12-15] MEDS: *HR* Enoxaparin 40 MG/0.4 ML SYRINGE SQ SCH (06:29)
[2020-12-15] MEDS: Spironolactone 12.5 MG TABLET PO SCH (07:44)
[2020-12-15] MEDS: Cholecalciferol (D-3) 1,000 UNIT (25MCG) TABLET PO SCH (07:44)
[2020-12-15] MEDS: Aspirin Enteric Coated 81 MG Tablet PO SCH (07:44)
[2020-12-15] MEDS: Multivit/Ca/Min/Fe/FA 1 TAB TABLET PO SCH (07:44)
[2020-12-15] MEDS: Artificial Tears SOLN 15 ML BOTTLE BOTH EYES SCH ×2 (07:53→21:10)
[2020-12-15] MEDS: lisinopriL 5 MG TABLET PO SCH (08:17)
[2020-12-15 08:43] LABS: Hematocrit 23.6 % (35.3-44.9); Hemoglobin 7.3 g/dL (11.5-15.4)
[2020-12-15 12:20] LABS: C-Reactive Protein 9 mg/L (Less than 10); Ferritin > 1500 ng/mL (10-120)
[2020-12-15] MEDS ORDERED: 0.9 % Sodium Chloride 250 ML IVC SCH (14:45)
[2020-12-15] MEDS: Metoprolol XL (24 HR) Succ 25 MG TAB.ER.24H PO SCH (16:31)
[2020-12-16 00:08] LABS: Hemoglobin 9.3 g/dL (11.5-15.4)
[2020-12-16 01:38] LABS: BUN/Creatinine Ratio 52 (6-26); Blood Urea Nitrogen 47 mg/dL (8-23); Calcium 7.8 mg/dL (8.6-10.3); Carbon Dioxide 21 mEq/L (23-29); Chloride 107 mEq/L (98-107); Glucose 138 mg/dL (70-105); Osmolality,Calculated 296 (280-300); Potassium 5.1 mEq/L (3.5-5.1); Sodium 136 mEq/L (136-145); eGFR For African Americans > 60 (> 60); eGFR For Non-African Americans > 60 (> 60)
[2020-12-16] MEDS: Ipratropium 1 PUFF INHALER IH SCH ×5 (03:40→19:53)
[2020-12-16] MEDS: Acetaminophen 325 MG TABLET PO PRN (03:54)
[2020-12-16] MEDS: ALPRAZolam 1 MG TABLET PO PRN (03:54)
[2020-12-16 04:45] LABS: Hematocrit 30.9 % (35.3-44.9); Hemoglobin 9.6 g/dL (11.5-15.4); Mean Corpuscular HGB Conc 31.1 g/dL (31.6-35.5); Mean Corpuscular Hemoglobin 30.4 pg (28.0-33.3); Mean Corpuscular Volume 97.8 fL (83.0-100.0); Mean Platelet Volume 11.6 fL (9.4-12.4); Platelet Count 219 K/mcL (140-400); Red Blood Count 3.16 M/mcL (3.82-4.97); Red Cell Distribution Width 15.9 % (11.5-14.5); White Blood Count 23.8 K/mcL (4.3-11.1)
[2020-12-16] MEDS: Pantoprazole 40 MG VIAL IVP SCH (09:16)
[2020-12-16] MEDS: Metoprolol XL (24 HR) Succ 25 MG TAB.ER.24H PO SCH (09:17)
[2020-12-16] MEDS: Multivit/Ca/Min/Fe/FA 1 TAB TABLET PO SCH (09:17)
[2020-12-16] MEDS: Cholecalciferol (D-3) 1,000 UNIT (25MCG) TABLET PO SCH (09:18)
[2020-12-16] MEDS: Artificial Tears SOLN 15 ML BOTTLE BOTH EYES SCH ×2 (09:24→20:59)
[2020-12-17] MEDS: Ipratropium 1 PUFF INHALER IH SCH ×7 (00:07→23:25)
[2020-12-17] MEDS: ALPRAZolam 1 MG TABLET PO PRN ×2 (00:44→22:52)
[2020-12-17 05:11] LABS: Hemoglobin 8.7 g/dL (11.5-15.4); Mean Corpuscular HGB Conc 31.1 g/dL (31.6-35.5); Mean Corpuscular Hemoglobin 30.6 pg (28.0-33.3); Mean Corpuscular Volume 98.6 fL (83.0-100.0); Mean Platelet Volume 11.5 fL (9.4-12.4); Platelet Count 214 K/mcL (140-400); Red Blood Count 2.84 M/mcL (3.82-4.97); Red Cell Distribution Width 15.9 % (11.5-14.5); White Blood Count 23.1 K/mcL (4.3-11.1)
[2020-12-17 05:29] LABS: BUN/Creatinine Ratio 46 (6-26); Blood Urea Nitrogen 38 mg/dL (8-23); Calcium 7.9 mg/dL (8.6-10.3); Carbon Dioxide 22 mEq/L (23-29); Chloride 109 mEq/L (98-107); Glucose 130 mg/dL (70-105); Osmolality,Calculated 295 (280-300); Potassium 5.2 mEq/L (3.5-5.1); Sodium 137 mEq/L (136-145); eGFR For African Americans > 60 (> 60); eGFR For Non-African Americans > 60 (> 60)
[2020-12-17] MEDS: Pantoprazole 40 MG VIAL IVP SCH (09:06)
[2020-12-17] MEDS: Metoprolol XL (24 HR) Succ 25 MG TAB.ER.24H PO SCH (09:09)
[2020-12-17] MEDS: Multivit/Ca/Min/Fe/FA 1 TAB TABLET PO SCH (09:10)
[2020-12-17] MEDS: Cholecalciferol (D-3) 1,000 UNIT (25MCG) TABLET PO SCH (09:10)
[2020-12-17] MEDS: Artificial Tears SOLN 15 ML BOTTLE BOTH EYES SCH ×2 (09:10→20:18)
[2020-12-17] MEDS ORDERED: SODIUM CHLORIDE/NAHCO3/KCL/PEG 4,000 ML SOLN.RECON PO ONE (17:00)
[2020-12-18] MEDS: Ipratropium 1 PUFF INHALER IH SCH ×6 (03:53→23:19)
[2020-12-18 07:07] LABS: BUN/Creatinine Ratio 36 (6-26); Blood Urea Nitrogen 31 mg/dL (8-23); Calcium 8.6 mg/dL (8.6-10.3); Carbon Dioxide 17 mEq/L (23-29); Chloride 108 mEq/L (98-107); Glucose 69 mg/dL (70-105); Osmolality,Calculated 287 (280-300); Potassium 5.3 mEq/L (3.5-5.1); Sodium 136 mEq/L (136-145); eGFR For African Americans > 60 (> 60); eGFR For Non-African Americans > 60 (> 60)
[2020-12-18] MEDS: ALPRAZolam 1 MG TABLET PO PRN ×2 (10:00→22:16)
[2020-12-18] MEDS ORDERED: Lidocaine -MPF 2% 5 ML VIAL INFILT ONE (10:01)
[2020-12-18] MEDS: Pantoprazole 40 MG VIAL IVP SCH (10:01)
[2020-12-18] MEDS: Metoprolol XL (24 HR) Succ 25 MG TAB.ER.24H PO SCH (10:01)
[2020-12-18] MEDS: Multivit/Ca/Min/Fe/FA 1 TAB TABLET PO SCH (10:01)
[2020-12-18] MEDS ORDERED: *HR* Propofol 500 MG/50 ML BOTTLE IVC ONE (10:01)
[2020-12-18] MEDS: dexAMETHasone 4 MG TABLET PO SCH (10:01)
[2020-12-18] MEDS: Cholecalciferol (D-3) 1,000 UNIT (25MCG) TABLET PO SCH (10:01)
[2020-12-18] MEDS: Artificial Tears SOLN 15 ML BOTTLE BOTH EYES SCH ×2 (10:02→22:16)
[2020-12-18] MEDS ORDERED: *HR* Vasopressin 20 UNIT/ML VIAL ONE (11:32)
[2020-12-18 15:17] LABS: Hematocrit 30.8 % (35.3-44.9); Mean Corpuscular HGB Conc 30.5 g/dL (31.6-35.5); Mean Corpuscular Hemoglobin 30.6 pg (28.0-33.3); Mean Corpuscular Volume 100.3 fL (83.0-100.0); Platelet Count 192 K/mcL (140-400); Red Blood Count 3.07 M/mcL (3.82-4.97); Red Cell Distribution Width 16.3 % (11.5-14.5); White Blood Count 17.4 K/mcL (4.3-11.1)
[2020-12-18 15:23] LABS: Hemoglobin 9.4 g/dL (11.5-15.4)
[2020-12-19 01:38] LABS: Hemoglobin 8.2 g/dL (11.5-15.4); Mean Corpuscular HGB Conc 30.4 g/dL (31.6-35.5); Mean Corpuscular Hemoglobin 30.8 pg (28.0-33.3); Mean Corpuscular Volume 101.5 fL (83.0-100.0); Mean Platelet Volume 11.4 fL (9.4-12.4); Nucleated Red Blood Cells 0.1 /100 WBC (0); Platelet Count 160 K/mcL (140-400); Red Blood Count 2.66 M/mcL (3.82-4.97); Red Cell Distribution Width 16.4 % (11.5-14.5); White Blood Count 14.2 K/mcL (4.3-11.1)
[2020-12-19 02:03] LABS: Lymphocytes # 0.9 K/mcL (0.6-4.6); Monocytes # 0.3 K/mcL (0.0-1.3); Neutrophils # 12.5 K/mcL (1.6-8.9)
[2020-12-19 02:04] LABS: Platelet Estimate Normal (Normal); Toxic Granulation Present (Not Present)
[2020-12-19 02:11] LABS: BUN/Creatinine Ratio 35 (6-26); Blood Urea Nitrogen 29 mg/dL (8-23); Calcium 6.9 mg/dL (8.6-10.3); Carbon Dioxide 14 mEq/L (23-29); Chloride 116 mEq/L (98-107); Glucose 119 mg/dL (70-105); Osmolality,Calculated 297 (280-300); Potassium 4.6 mEq/L (3.5-5.1); Sodium 140 mEq/L (136-145); eGFR For African Americans > 60 (> 60); eGFR For Non-African Americans > 60 (> 60)
[2020-12-19] MEDS: Acetaminophen 325 MG TABLET PO PRN ×3 (02:48→19:52)
[2020-12-19] MEDS: Ipratropium 1 PUFF INHALER IH SCH ×6 (03:57→22:57)
[2020-12-19] MEDS: Multivit/Ca/Min/Fe/FA 1 TAB TABLET PO SCH (09:30)
[2020-12-19] MEDS: dexAMETHasone 4 MG TABLET PO SCH (09:30)
[2020-12-19] MEDS: Cholecalciferol (D-3) 1,000 UNIT (25MCG) TABLET PO SCH (09:30)
[2020-12-19] MEDS: Metoprolol XL (24 HR) Succ 25 MG TAB.ER.24H PO SCH (09:34)
[2020-12-19] MEDS: Artificial Tears SOLN 15 ML BOTTLE BOTH EYES SCH ×2 (09:35→19:52)
[2020-12-19] MEDS: Pantoprazole 40 MG VIAL IVP SCH (09:35)
[2020-12-19] MEDS: ALPRAZolam 1 MG TABLET PO PRN (19:53)
[2020-12-20] MEDS: Ipratropium 1 PUFF INHALER IH SCH ×5 (03:55→20:24)
[2020-12-20] MEDS: ALPRAZolam 1 MG TABLET PO PRN ×2 (04:33→23:07)
[2020-12-20] MEDS: Acetaminophen 325 MG TABLET PO PRN (04:33)
[2020-12-20 05:41] LABS: Hemoglobin 8.9 g/dL (11.5-15.4); Mean Corpuscular HGB Conc 30.7 g/dL (31.6-35.5); Mean Corpuscular Hemoglobin 30.4 pg (28.0-33.3); Mean Platelet Volume 10.7 fL (9.4-12.4); Monocytes # 0.7 K/mcL (0.0-1.3); Platelet Count 189 K/mcL (140-400); Red Blood Count 2.93 M/mcL (3.82-4.97); Red Cell Distribution Width 16.6 % (11.5-14.5); White Blood Count 18.3 K/mcL (4.3-11.1)
[2020-12-20 05:58] LABS: Anisocytosis 1+ (Not Present); Lymphocytes # 0.7 K/mcL (0.6-4.6); Neutrophils # 16.8 K/mcL (1.6-8.9); Reactive Lymphocytes Present (Not Present); Toxic Granulation Present (Not Present)
[2020-12-20 05:59] LABS: BUN/Creatinine Ratio 43 (6-26); Blood Urea Nitrogen 37 mg/dL (8-23); Calcium 7.8 mg/dL (8.6-10.3); Carbon Dioxide 21 mEq/L (23-29); Chloride 109 mEq/L (98-107); Glucose 98 mg/dL (70-105); Osmolality,Calculated 291 (280-300); Potassium 4.8 mEq/L (3.5-5.1); Sodium 136 mEq/L (136-145); eGFR For African Americans > 60 (> 60); eGFR For Non-African Americans > 60 (> 60)
[2020-12-20] MEDS: dexAMETHasone 4 MG TABLET PO SCH (10:00)
[2020-12-20] MEDS: Multivit/Ca/Min/Fe/FA 1 TAB TABLET PO SCH (10:00)
[2020-12-20] MEDS: Cholecalciferol (D-3) 1,000 UNIT (25MCG) TABLET PO SCH (10:00)
[2020-12-20] MEDS: Metoprolol XL (24 HR) Succ 25 MG TAB.ER.24H PO SCH (10:00)
[2020-12-20] MEDS: Artificial Tears SOLN 15 ML BOTTLE BOTH EYES SCH (10:31)
[2020-12-20 10:42] LABS: Hematocrit 32.6 % (35.3-44.9); Hemoglobin 9.9 g/dL (11.5-15.4)
[2020-12-20] MEDS ORDERED: ISOVUE-370 200 ML INFUS..BTL ONE ×2 (13:50→14:54)
[2020-12-20] MEDS ORDERED: 0.9 % Sodium Chloride 2,000 ML ONE ×2 (13:50→14:54)
[2020-12-20] MEDS ORDERED: Nitroglycerin 1,000 MCG/10 ML VIAL IV ONE ×2 (13:50→14:54)
[2020-12-20] MEDS ORDERED: *HR* Heparin 10,000 UNIT/10 ML VIAL ONE ×2 (13:50→14:54)
[2020-12-20] MEDS ORDERED: Heparin 1,000 UNITS/500 mL 500 ML ONE ×2 (13:50→14:54)
[2020-12-20] MEDS ORDERED: *HR* FentaNYL (PF) 100 MCG/2 ML VIAL ONE (14:11)
[2020-12-20] MEDS ORDERED: *HR* Midazolam HCl 2 MG/2 ML VIAL ONE (14:11)
[2020-12-20] MEDS: Aspirin 81 MG TAB.CHEW PO SCH (17:30)
[2020-12-21] MEDS: Ipratropium 1 PUFF INHALER IH SCH ×4 (00:34→11:38)
[2020-12-21 04:05] LABS: Basophils % 0.1 %; Eosinophils % 0.3 %; Hematocrit 28.1 % (35.3-44.9); Hemoglobin 8.7 g/dL (11.5-15.4); Immature Granulocytes % 3.4 % (0-4); Lymphocytes # 1.1 K/mcL (0.6-4.6); Lymphocytes % 7.3 %; Mean Corpuscular Hemoglobin 30.9 pg (28.0-33.3); Mean Corpuscular Volume 99.6 fL (83.0-100.0); Mean Platelet Volume 10.7 fL (9.4-12.4); Monocytes # 0.7 K/mcL (0.0-1.3); Monocytes % 4.4 %; Neutrophils # 12.9 K/mcL (1.6-8.9); Platelet Count 175 K/mcL (140-400); Red Blood Count 2.82 M/mcL (3.82-4.97); Red Cell Distribution Width 16.7 % (11.5-14.5); Segmented Neutrophils % 84.5 %; White Blood Count 15.3 K/mcL (4.3-11.1)
[2020-12-21 04:25] LABS: BUN/Creatinine Ratio 44 (6-26); Blood Urea Nitrogen 44 mg/dL (8-23); Calcium 7.3 mg/dL (8.6-10.3); Carbon Dioxide 19 mEq/L (23-29); Chloride 110 mEq/L (98-107); Glucose 105 mg/dL (70-105); Osmolality,Calculated 296 (280-300); Potassium 4.6 mEq/L (3.5-5.1); Sodium 137 mEq/L (136-145); eGFR For African Americans > 60 (> 60); eGFR For Non-African Americans 55 (> 60)
[2020-12-21] MEDS: Artificial Tears SOLN 15 ML BOTTLE BOTH EYES SCH ×2 (04:56→08:40)
[2020-12-21] MEDS: dexAMETHasone 4 MG TABLET PO SCH (08:38)
[2020-12-21] MEDS: Cholecalciferol (D-3) 1,000 UNIT (25MCG) TABLET PO SCH (08:40)
[2020-12-21] MEDS: Aspirin 81 MG TAB.CHEW PO SCH (08:40)
[2020-12-21] MEDS: Multivit/Ca/Min/Fe/FA 1 TAB TABLET PO SCH (08:40)
[2020-12-21] MEDS ORDERED: Metoprolol XL (24 HR) Succ 25 MG TAB.ER.24H PO SCH (09:00)
[2020-12-21] MEDS ORDERED: lisinopriL 5 MG TABLET PO SCH (09:00)
[2020-12-21] MEDS: Acetaminophen 325 MG TABLET PO PRN (09:25)
[2020-12-21 11:31] VITALS: BP 110/68
[2020-12-21] MEDS: ALPRAZolam 1 MG TABLET PO PRN (14:14)
== END 2020-12-21 15:20 | DRG 871 ==
LOC: 2NENU → SUATTDRO 12:04
PROVIDERS: ADMIT Internal Medicine; ATTEND Internal Medicine

== ENCOUNTER 2021-03-18 11:16 | Inpatient (IN) ==
[2021-03-18] MEDS ORDERED: Naloxone 0.4 MG/ML INJ IVP PRN (14:34)
[2021-03-18] MEDS ORDERED: Ondansetron 4 MG/2 ML VIAL IVP PRN (14:34)
[2021-03-18] MEDS ORDERED: Ipratropium/Albuterol Neb 3 ML IH PRN (14:39)
[2021-03-18 15:26] LABS: ABG Base Excess -13 mEq/L (-2 to 3); ABG HCO3 13 mEq/L (21-27); ABG Oxygen Saturation 91 % (95-98); ABG PCO2 28 mmHg (35-45); ABG PH 7.27 pH Units (7.32-7.45); ABG PO2 68 mmHg (85-104); ABG TCO2 13 mEq/L (20-26)
[2021-03-18] MEDS ORDERED: SODIUM CHLORIDE 0.45% IVC SCH (15:28)
[2021-03-18] MEDS ORDERED: SODIUM BICARBONATE IVC SCH ×2 (15:28→16:00)
[2021-03-18] MEDS: cefTRIAXone 2,000 MG in Water for inj. (sterile) 20 ML IVP SCH (15:54)
[2021-03-18] MEDS ORDERED: SODIUM CHLORIDE 0.9% IVC SCH (16:00)
[2021-03-18] MEDS: *HR* Heparin 5,000 UNIT/ML VIAL SQ SCH (17:24)
[2021-03-18 18:18] LABS: Basophils # 0.1 K/mcL (0.0-0.2); Basophils % 0.4 %; Eosinophils # 0.3 K/mcL (0.0-0.6); Eosinophils % 2.2 %; Hematocrit 37.1 % (35.3-44.9); Hemoglobin 11.1 g/dL (11.5-15.4); Immature Granulocytes % 1.4 % (0-4); Lymphocytes # 1.7 K/mcL (0.6-4.6); Lymphocytes % 12.9 %; Mean Corpuscular HGB Conc 29.9 g/dL (31.6-35.5); Mean Corpuscular Hemoglobin 28.2 pg (28.0-33.3); Mean Corpuscular Volume 94.4 fL (83.0-100.0); Mean Platelet Volume 8.9 fL (9.4-12.4); Monocytes # 0.9 K/mcL (0.0-1.3); Monocytes % 6.9 %; Platelet Count 304 K/mcL (140-400); Red Blood Count 3.93 M/mcL (3.82-4.97); Red Cell Distribution Width 17.1 % (11.5-14.5); Segmented Neutrophils % 76.2 %; White Blood Count 13.1 K/mcL (4.3-11.1)
[2021-03-18 18:37] LABS: Calcium 7.3 mg/dL (8.6-10.3); Potassium 3.2 mEq/L (3.5-5.1)
[2021-03-19] MEDS: *HR* Heparin 5,000 UNIT/ML VIAL SQ SCH ×2 (06:13→16:49)
[2021-03-19] MEDS: Aspirin Enteric Coated 81 MG Tablet PO SCH (08:19)
[2021-03-19 09:05] LABS: INR 1.2; Prothrombin Time 13.9 Seconds (9.4-12.1)
[2021-03-19 09:07] LABS: Activated Partial Thrombo Time 27.4 Seconds (26.0-36.0)
[2021-03-19 09:34] LABS: Calcium 7.1 mg/dL (8.6-10.3); Magnesium 1.6 mg/dL (1.6-2.6); Phosphorous 2.5 mg/dL (2.7-4.5); Potassium 3.4 mEq/L (3.5-5.1)
[2021-03-19] MEDS ORDERED: Sodium Bicarbonate 150 MEQ in D5% in Water 500 ML IVC SCH ×2 (11:30→13:07)
[2021-03-19] MEDS ORDERED: SUMAtriptan succinate 25 MG TABLET PO PRN (12:52)
[2021-03-19] MEDS: cefTRIAXone 2,000 MG in Water for inj. (sterile) 20 ML IVP SCH (14:09)
[2021-03-19] MEDS: Acetaminophen 325 MG TABLET PO PRN ×2 (14:35→21:16)
[2021-03-20] MEDS: *HR* Heparin 5,000 UNIT/ML VIAL SQ SCH ×2 (05:27→18:07)
[2021-03-20 06:22] LABS: Basophils # 0.1 K/mcL (0.0-0.2); Basophils % 0.7 %; Eosinophils # 0.4 K/mcL (0.0-0.6); Hematocrit 30.5 % (35.3-44.9); Immature Granulocytes % 2.2 % (0-4); Lymphocytes # 1.8 K/mcL (0.6-4.6); Lymphocytes % 20.4 %; Mean Corpuscular HGB Conc 29.5 g/dL (31.6-35.5); Mean Corpuscular Hemoglobin 27.3 pg (28.0-33.3); Mean Corpuscular Volume 92.4 fL (83.0-100.0); Mean Platelet Volume 9.1 fL (9.4-12.4); Monocytes # 0.8 K/mcL (0.0-1.3); Monocytes % 9.2 %; Neutrophils # 5.4 K/mcL (1.6-8.9); Platelet Count 257 K/mcL (140-400); Red Cell Distribution Width 17.4 % (11.5-14.5); Segmented Neutrophils % 62.5 %; White Blood Count 8.6 K/mcL (4.3-11.1)
[2021-03-20 06:40] LABS: Calcium 6.9 mg/dL (8.6-10.3); Magnesium 1.4 mg/dL (1.6-2.6)
[2021-03-20] MEDS: Aspirin Enteric Coated 81 MG Tablet PO SCH (08:52)
[2021-03-20] MEDS: Cholecalciferol (D-3) 1,000 UNIT (25MCG) TABLET PO SCH (08:53)
[2021-03-20] MEDS: Metoprolol XL (24 HR) Succ 25 MG TAB.ER.24H PO SCH (08:53)
[2021-03-20] MEDS: *HR* HYDROcodone/Acet 5/325 mg TABLET PO PRN ×2 (11:57→20:48)
[2021-03-20] MEDS: cefTRIAXone 2,000 MG in Water for inj. (sterile) 20 ML IVP SCH (15:00)
[2021-03-21] MEDS: *HR* Heparin 5,000 UNIT/ML VIAL SQ SCH ×2 (05:49→18:43)
[2021-03-21 06:36] LABS: Calcium 7.1 mg/dL (8.6-10.3); Magnesium 1.8 mg/dL (1.6-2.6); Potassium 3.3 mEq/L (3.5-5.1)
[2021-03-21] MEDS: Aspirin Enteric Coated 81 MG Tablet PO SCH (08:41)
[2021-03-21] MEDS: Metoprolol XL (24 HR) Succ 25 MG TAB.ER.24H PO SCH (08:42)
[2021-03-21] MEDS: Cholecalciferol (D-3) 1,000 UNIT (25MCG) TABLET PO SCH (08:42)
[2021-03-21] MEDS: Fluconazole 100 MG TABLET PO SCH (09:08)
[2021-03-21] MEDS: 0.9 % Sodium Chloride 1,000 ML IVC SCH (14:19)
[2021-03-21] MEDS: cefTRIAXone 2,000 MG in Water for inj. (sterile) 20 ML IVP SCH (14:19)
[2021-03-22 03:43] LABS: Basophils # 0.1 K/mcL (0.0-0.2); Basophils % 0.7 %; Eosinophils # 0.4 K/mcL (0.0-0.6); Eosinophils % 5.8 %; Hematocrit 29.7 % (35.3-44.9); Hemoglobin 9.1 g/dL (11.5-15.4); Immature Granulocytes % 3.6 % (0-4); Lymphocytes # 1.9 K/mcL (0.6-4.6); Mean Corpuscular HGB Conc 30.6 g/dL (31.6-35.5); Mean Corpuscular Hemoglobin 28.3 pg (28.0-33.3); Mean Corpuscular Volume 92.5 fL (83.0-100.0); Mean Platelet Volume 9.2 fL (9.4-12.4); Monocytes # 0.6 K/mcL (0.0-1.3); Monocytes % 8.5 %; Neutrophils # 3.7 K/mcL (1.6-8.9); Platelet Count 215 K/mcL (140-400); Red Blood Count 3.21 M/mcL (3.82-4.97); Red Cell Distribution Width 17.3 % (11.5-14.5); Segmented Neutrophils % 53.4 %; White Blood Count 6.9 K/mcL (4.3-11.1)
[2021-03-22 04:02] LABS: BUN/Creatinine Ratio 10 (6-26); Blood Urea Nitrogen 11 mg/dL (8-23); Calcium 6.8 mg/dL (8.6-10.3); Carbon Dioxide 21 mEq/L (23-29); Chloride 117 mEq/L (98-107); Glucose 98 mg/dL (70-105); Magnesium 1.5 mg/dL (1.6-2.6); Osmolality,Calculated 295 (280-300); Phosphorous 3.1 mg/dL (2.7-4.5); Sodium 143 mEq/L (136-145); eGFR For African Americans > 60 (> 60); eGFR For Non-African Americans 51 (> 60)
[2021-03-22] MEDS: *HR* Heparin 5,000 UNIT/ML VIAL SQ SCH ×2 (06:57→17:47)
[2021-03-22] MEDS: 0.9 % Sodium Chloride 1,000 ML IVC SCH ×2 (07:56→07:59)
[2021-03-22] MEDS: Cholecalciferol (D-3) 1,000 UNIT (25MCG) TABLET PO SCH (08:00)
[2021-03-22] MEDS: Fluconazole 100 MG TABLET PO SCH (08:00)
[2021-03-22] MEDS: Aspirin Enteric Coated 81 MG Tablet PO SCH (08:00)
[2021-03-22] MEDS: Metoprolol XL (24 HR) Succ 25 MG TAB.ER.24H PO SCH (08:00)
[2021-03-22] MEDS: cefTRIAXone 2,000 MG in Water for inj. (sterile) 20 ML IVP SCH (14:38)
[2021-03-23] MEDS: 0.9 % Sodium Chloride 1,000 ML IVC SCH ×2 (04:02→14:28)
[2021-03-23 04:57] LABS: Basophils # 0.1 K/mcL (0.0-0.2); Basophils % 0.8 %; Eosinophils % 6.2 %; Hematocrit 28.9 % (35.3-44.9); Hemoglobin 8.4 g/dL (11.5-15.4); Immature Granulocytes % 5.4 % (0-4); Lymphocytes # 2.2 K/mcL (0.6-4.6); Lymphocytes % 24.7 %; Mean Corpuscular HGB Conc 29.1 g/dL (31.6-35.5); Mean Corpuscular Hemoglobin 27.5 pg (28.0-33.3); Mean Corpuscular Volume 94.8 fL (83.0-100.0); Mean Platelet Volume 9.3 fL (9.4-12.4); Monocytes # 0.7 K/mcL (0.0-1.3); Neutrophils # 4.8 K/mcL (1.6-8.9); Platelet Count 219 K/mcL (140-400); Red Blood Count 3.05 M/mcL (3.82-4.97); Red Cell Distribution Width 17.5 % (11.5-14.5); Segmented Neutrophils % 54.9 %; White Blood Count 8.8 K/mcL (4.3-11.1)
[2021-03-23 05:11] LABS: Eosinophils # 0.6 K/mcL (0.0-0.6)
[2021-03-23 05:17] LABS: BUN/Creatinine Ratio 10 (6-26); Blood Urea Nitrogen 11 mg/dL (8-23); Carbon Dioxide 24 mEq/L (23-29); Chloride 115 mEq/L (98-107); Glucose 92 mg/dL (70-105); Magnesium 2.1 mg/dL (1.6-2.6); Osmolality,Calculated 291 (280-300); Phosphorous 2.7 mg/dL (2.7-4.5); Potassium 3.5 mEq/L (3.5-5.1); Sodium 141 mEq/L (136-145); eGFR For African Americans > 60 (> 60); eGFR For Non-African Americans 52 (> 60)
[2021-03-23 05:39] LABS: Platelet Estimate Normal (Normal); Reactive Lymphocytes Present (Not Present)
[2021-03-23] MEDS: *HR* Heparin 5,000 UNIT/ML VIAL SQ SCH ×2 (05:58→18:31)
[2021-03-23] MEDS: Aspirin Enteric Coated 81 MG Tablet PO SCH (08:11)
[2021-03-23] MEDS: Fluconazole 100 MG TABLET PO SCH (08:11)
[2021-03-23] MEDS: Cholecalciferol (D-3) 1,000 UNIT (25MCG) TABLET PO SCH (08:11)
[2021-03-23] MEDS: Metoprolol XL (24 HR) Succ 25 MG TAB.ER.24H PO SCH (08:11)
[2021-03-23] MEDS: cefTRIAXone 2,000 MG in Water for inj. (sterile) 20 ML IVP SCH (14:29)
[2021-03-23 19:11] VITALS: BP 122/71
[2021-03-23 20:32] LABS: Adenovirus Not Detected (Not Detect); Bordetella Pertussis Not Detected (Not Detect); Chlamydophila pneumoniae Not Detected (Not Detect); Coronavirus 229E Not Detected (Not Detect); Coronavirus HKU1 Not Detected (Not Detect); Coronavirus NL63 Not Detected (Not Detect); Coronavirus OC43 Not Detected (Not Detect); Human Metapneumovirus Not Detected (Not Detect); Human Rhinovirus/Enterovirus Not Detected (Not Detect); Influenza A Subtype 2009 H1 Not Detected (Not Detect); Influenza B Not Detected (Not Detect); Mycoplasma pneumoniae Not Detected (Not Detect); Parainfluenza Virus 1 Not Detected (Not Detect); Parainfluenza Virus 2 Not Detected (Not Detect); Parainfluenza Virus 3 Not Detected (Not Detect); Parainfluenza Virus 4 Not Detected (Not Detect); Respiratory Syncytial Virus Not Detected (Not Detect); SARS-CoV-2 Not Detected (Not Detect)
[2021-03-24 08:38] LABS: ANA IgG by ELISA NONE DETECTED (None Detected)
[2021-03-24] MEDS ORDERED: Vancomycin 500 MG in 0.9 % Sodium Chloride Mini Bag 100 ML IVPB SCH (10:00)
== END 2021-03-23 22:26 | disposition other institution (70) | DRG 917 ==
LOC: 3ANU → SUATTDRO 13:41
PROVIDERS: ADMIT Internal Medicine; ATTEND Internal Medicine

== ENCOUNTER 2021-08-05 16:39 | Inpatient (IN) ==
[2021-08-05] MEDS ORDERED: 0.9 % Sodium Chloride 1,000 ML IVC ONE (16:52)
[2021-08-05] MEDS ORDERED: Isovue-370 500 ML BOTTLE IVP ONE (16:53)
[2021-08-05 17:39] LABS: Bacteria,Urine Few per hpf (None-Few); Bilirubin,Urine Negative (Negative); Blood,Urine Moderate (Negative); Clarity,Urine Turbid (Clear); Color,Urine Yellow (Yellow); Glucose,Urine (UA) Normal (Normal); Ketones,Urine Negative (Negative); Leukocyte Esterase,Urine Large (Negative); Nitrite,Urine Negative (Negative); PH,Urine 5.5 pH Units (5.0-8.0); Protein,Urine 50 mg/dL (Neg-Trace); RBC,Urine 50-100 per hpf (0-3); Specific Gravity,Urine 1.015 (1.010-1.025); Urobilinogen,Urine Normal (Normal); WBC,Urine TNTC per hpf (0-3)
[2021-08-05 17:56] LABS: Influenza A PCR Negative (Negative); Influenza B PCR Negative (Negative); Resp. Syncytial Virus PCR Negative (Negative)
[2021-08-05 17:57] LABS: SARS-CoV-2 by PCR (In House) Negative (Negative)
[2021-08-05 18:12] LABS: Basophils # 0.1 K/mcL (0.0-0.2); Basophils % 0.6 %; Eosinophils # 0.1 K/mcL (0.0-0.6); Eosinophils % 0.8 %; Hematocrit 47.2 % (35.3-44.9); Hemoglobin 14.3 g/dL (11.5-15.4); Immature Granulocytes % 1.5 % (0-4); Lymphocytes # 1.9 K/mcL (0.6-4.6); Lymphocytes % 16.9 %; Mean Corpuscular HGB Conc 30.3 g/dL (31.6-35.5); Mean Corpuscular Hemoglobin 28.8 pg (28.0-33.3); Mean Platelet Volume 8.7 fL (9.4-12.4); Monocytes # 0.4 K/mcL (0.0-1.3); Monocytes % 3.7 %; Neutrophils # 8.4 K/mcL (1.6-8.9); Platelet Count 318 K/mcL (140-400); Red Blood Count 4.97 M/mcL (3.82-4.97); Red Cell Distribution Width 15.9 % (11.5-14.5); Segmented Neutrophils % 76.5 %; White Blood Count 10.9 K/mcL (4.3-11.1)
[2021-08-05 18:33] LABS: Albumin 3.6 g/dL (3.5-5.7); Albumin/Globulin Ratio 0.8 (1.1-2.2); Bilirubin,Total 0.3 mg/dL (0.3-1.0); Calcium 9.2 mg/dL (8.6-10.3); Globulin 4.7 g/dL (2.4-3.5); Magnesium 1.6 mg/dL (1.6-2.6); Potassium 4.3 mEq/L (3.5-5.1); Total Protein 8.3 g/dL (6.4-8.9)
[2021-08-05] MEDS ORDERED: cefTRIAXone 1,000 MG in Water for inj. (sterile) 10 ML IVP ONE (19:36)
[2021-08-05] MEDS ORDERED: Naloxone 0.4 MG/ML INJ IVP PRN (21:08)
[2021-08-05] MEDS ORDERED: Melatonin 3 MG TABLET PO PRN (21:08)
[2021-08-05] MEDS: 0.9 % Sodium Chloride 1,000 ML IVC SCH (23:07)
[2021-08-05] MEDS: Ondansetron 4 MG/2 ML VIAL IVP PRN (23:08)
[2021-08-05] MEDS ORDERED: QUEtiapine Fumarate 25 MG TABLET PO SCH (23:15)
[2021-08-05] MEDS ORDERED: QUEtiapine Fumarate 25 MG TABLET PO ONE (23:15)
[2021-08-06] MEDS: Acetaminophen 325 MG TABLET PO PRN ×4 (00:27→21:52)
[2021-08-06 05:49] LABS: Basophils # 0.1 K/mcL (0.0-0.2); Basophils % 0.5 %; Eosinophils # 0.2 K/mcL (0.0-0.6); Eosinophils % 1.7 %; Hematocrit 36.2 % (35.3-44.9); Immature Granulocytes % 1.3 % (0-4); Lymphocytes % 19.2 %; Mean Corpuscular HGB Conc 29.8 g/dL (31.6-35.5); Mean Corpuscular Hemoglobin 29.3 pg (28.0-33.3); Mean Corpuscular Volume 98.4 fL (83.0-100.0); Mean Platelet Volume 9.4 fL (9.4-12.4); Monocytes # 0.7 K/mcL (0.0-1.3); Monocytes % 6.9 %; Neutrophils # 7.2 K/mcL (1.6-8.9); Platelet Count 221 K/mcL (140-400); Red Blood Count 3.68 M/mcL (3.82-4.97); Red Cell Distribution Width 15.7 % (11.5-14.5); Segmented Neutrophils % 70.4 %; White Blood Count 10.2 K/mcL (4.3-11.1)
[2021-08-06 05:50] LABS: Hemoglobin 10.8 g/dL (11.5-15.4)
[2021-08-06] MEDS: 0.9 % Sodium Chloride 1,000 ML IVC SCH ×2 (06:07→15:02)
[2021-08-06] MEDS: *HR* Heparin 5,000 UNIT/ML VIAL SQ SCH ×2 (06:08→18:16)
[2021-08-06 06:30] LABS: Alanine Aminotransferase < 3 Units/L (7-52); Albumin 2.5 g/dL (3.5-5.7); Albumin/Globulin Ratio 0.8 (1.1-2.2); Alkaline Phosphatase 95 Units/L (34-104); Aspartate Amino Transferase 9 Units/L (13-39); BUN/Creatinine Ratio 17 (6-26); Bilirubin,Total 0.2 mg/dL (0.3-1.0); Blood Urea Nitrogen 39 mg/dL (8-23); Calcium 7.7 mg/dL (8.6-10.3); Carbon Dioxide 12 mEq/L (23-29); Chloride 115 mEq/L (98-107); Globulin 3.1 g/dL (2.4-3.5); Glucose 68 mg/dL (70-105); Magnesium 1.5 mg/dL (1.6-2.6); Osmolality,Calculated 292 (280-300); Phosphorous 4.8 mg/dL (2.7-4.5); Potassium 4.2 mEq/L (3.5-5.1); Sodium 137 mEq/L (136-145); Total Protein 5.6 g/dL (6.4-8.9); eGFR For African Americans 25 (> 60); eGFR For Non-African Americans 21 (> 60)
[2021-08-06] MEDS: cefTRIAXone 1,000 MG in Water for inj. (sterile) 10 ML IVP SCH (10:29)
[2021-08-06 12:59] LABS: Potassium 4.2 mEq/L (3.5-5.1)
[2021-08-06] MEDS: Ondansetron 4 MG/2 ML VIAL IVP PRN ×2 (15:00→23:24)
[2021-08-06] MEDS: ALPRAZolam 1 MG TABLET PO PRN (18:21)
[2021-08-07 03:27] LABS: Basophils # 0.1 K/mcL (0.0-0.2); Basophils % 0.3 %; Eosinophils # 0.1 K/mcL (0.0-0.6); Eosinophils % 0.3 %; Hematocrit 36.1 % (35.3-44.9); Hemoglobin 11.1 g/dL (11.5-15.4); Lymphocytes % 6.7 %; Mean Corpuscular HGB Conc 30.7 g/dL (31.6-35.5); Mean Corpuscular Hemoglobin 29.7 pg (28.0-33.3); Mean Corpuscular Volume 96.5 fL (83.0-100.0); Monocytes # 0.7 K/mcL (0.0-1.3); Neutrophils # 12.7 K/mcL (1.6-8.9); Platelet Count 251 K/mcL (140-400); Red Blood Count 3.74 M/mcL (3.82-4.97); Red Cell Distribution Width 15.8 % (11.5-14.5); Segmented Neutrophils % 86.7 %; White Blood Count 14.7 K/mcL (4.3-11.1)
[2021-08-07 04:00] LABS: Calcium 7.6 mg/dL (8.6-10.3); Potassium 4.2 mEq/L (3.5-5.1)
[2021-08-07] MEDS ORDERED: *HR* Promethazine 25 MG/ML VIAL IM ONE (05:05)
[2021-08-07] MEDS: Acetaminophen 325 MG TABLET PO PRN ×2 (05:16→15:12)
[2021-08-07] MEDS: *HR* Heparin 5,000 UNIT/ML VIAL SQ SCH ×2 (05:17→17:33)
[2021-08-07] MEDS: Lactobacillus 1 EACH CAP.SPRINK PO SCH (09:43)
[2021-08-07 09:44] LABS: Magnesium 1.3 mg/dL (1.6-2.6); Phosphorous 4.2 mg/dL (2.7-4.5)
[2021-08-07] MEDS: cefTRIAXone 1,000 MG in Water for inj. (sterile) 10 ML IVP SCH (09:45)
[2021-08-07] MEDS: MetroNIDAZOLE 500 MG/100 ML 500 MG/100 ML BAG IVPB SCH ×3 (12:29→23:58)
[2021-08-07] MEDS: Ondansetron 4 MG/2 ML VIAL IVP PRN ×2 (12:29→20:46)
[2021-08-07] MEDS: Sodium Bicarbonate 75 MEQ in 0.45 % Sodium Chloride 1,000 ML IVC SCH ×2 (12:30→20:43)
[2021-08-08] MEDS: Acetaminophen 325 MG TABLET PO PRN ×2 (02:01→14:59)
[2021-08-08] MEDS: Sodium Bicarbonate 75 MEQ in 0.45 % Sodium Chloride 1,000 ML IVC SCH ×2 (04:30→16:41)
[2021-08-08] MEDS: ALPRAZolam 1 MG TABLET PO PRN (04:33)
[2021-08-08] MEDS: *HR* Heparin 5,000 UNIT/ML VIAL SQ SCH ×2 (05:54→17:57)
[2021-08-08] MEDS: MetroNIDAZOLE 500 MG/100 ML 500 MG/100 ML BAG IVPB SCH ×2 (07:26→16:41)
[2021-08-08] MEDS: Lactobacillus 1 EACH CAP.SPRINK PO SCH (07:26)
[2021-08-08 09:08] LABS: Basophils % 0.3 %; Eosinophils # 0.1 K/mcL (0.0-0.6); Eosinophils % 0.8 %; Hematocrit 34.6 % (35.3-44.9); Hemoglobin 10.9 g/dL (11.5-15.4); Lymphocytes # 1.2 K/mcL (0.6-4.6); Lymphocytes % 8.6 %; Mean Corpuscular HGB Conc 31.5 g/dL (31.6-35.5); Mean Corpuscular Hemoglobin 29.5 pg (28.0-33.3); Mean Corpuscular Volume 93.5 fL (83.0-100.0); Mean Platelet Volume 8.9 fL (9.4-12.4); Monocytes % 7.3 %; Neutrophils # 11.2 K/mcL (1.6-8.9); Platelet Count 237 K/mcL (140-400); Red Cell Distribution Width 15.9 % (11.5-14.5); White Blood Count 13.6 K/mcL (4.3-11.1)
[2021-08-08] MEDS ORDERED: *HR* Promethazine 25 MG/ML VIAL IM ONE (09:26)
[2021-08-08] MEDS ORDERED: SUMAtriptan 6 MG/0.5 ML SQ ONE ×2 (09:26→16:59)
[2021-08-08 11:14] LABS: Calcium 7.6 mg/dL (8.6-10.3); Magnesium 2.7 mg/dL (1.6-2.6); Phosphorous 3.7 mg/dL (2.7-4.5); Potassium 3.7 mEq/L (3.5-5.1)
[2021-08-08 16:38] LABS: Sodium, Urine 68.1 mEq/L
[2021-08-09] MEDS: MetroNIDAZOLE 500 MG/100 ML 500 MG/100 ML BAG IVPB SCH ×4 (00:27→23:38)
[2021-08-09] MEDS: Acetaminophen 325 MG TABLET PO PRN ×2 (03:09→19:45)
[2021-08-09] MEDS: *HR* Heparin 5,000 UNIT/ML VIAL SQ SCH ×2 (05:51→17:01)
[2021-08-09 06:11] LABS: Basophils % 0.3 %; Eosinophils # 0.3 K/mcL (0.0-0.6); Eosinophils % 2.6 %; Hematocrit 31.5 % (35.3-44.9); Hemoglobin 10.1 g/dL (11.5-15.4); Immature Granulocytes % 1.1 % (0-4); Lymphocytes # 1.5 K/mcL (0.6-4.6); Lymphocytes % 15.1 %; Mean Corpuscular HGB Conc 32.1 g/dL (31.6-35.5); Mean Corpuscular Hemoglobin 29.4 pg (28.0-33.3); Mean Corpuscular Volume 91.6 fL (83.0-100.0); Mean Platelet Volume 8.8 fL (9.4-12.4); Monocytes # 0.7 K/mcL (0.0-1.3); Monocytes % 7.2 %; Neutrophils # 7.3 K/mcL (1.6-8.9); Platelet Count 231 K/mcL (140-400); Red Blood Count 3.44 M/mcL (3.82-4.97); Red Cell Distribution Width 15.9 % (11.5-14.5); Segmented Neutrophils % 73.7 %; White Blood Count 9.9 K/mcL (4.3-11.1)
[2021-08-09 06:30] LABS: Calcium 7.5 mg/dL (8.6-10.3); Phosphorous 3.5 mg/dL (2.7-4.5); Potassium 3.4 mEq/L (3.5-5.1)
[2021-08-09] MEDS: Sodium Bicarbonate 75 MEQ in 0.45 % Sodium Chloride 1,000 ML IVC SCH ×3 (06:49→15:48)
[2021-08-09] MEDS: Lactobacillus 1 EACH CAP.SPRINK PO SCH (07:21)
[2021-08-09] MEDS: Simethicone 80 MG TAB.CHEW PO PRN ×2 (17:00→23:38)
[2021-08-10] MEDS: Acetaminophen 325 MG TABLET PO PRN ×4 (01:54→23:22)
[2021-08-10] MEDS: Sodium Bicarbonate 75 MEQ in 0.45 % Sodium Chloride 1,000 ML IVC SCH ×3 (01:55→14:34)
[2021-08-10 02:00] LABS: Calcium 6.9 mg/dL (8.6-10.3); Magnesium 1.6 mg/dL (1.6-2.6); Phosphorous 2.8 mg/dL (2.7-4.5); Potassium 3.6 mEq/L (3.5-5.1)
[2021-08-10] MEDS: *HR* Heparin 5,000 UNIT/ML VIAL SQ SCH ×2 (05:46→16:45)
[2021-08-10] MEDS: Lactobacillus 1 EACH CAP.SPRINK PO SCH (08:10)
[2021-08-10] MEDS ORDERED: Amoxicillin 500 MG CAPSULE PO SCH (09:00)
[2021-08-10] MEDS: rOPINIRole 1 MG TABLET PO SCH (09:50)
[2021-08-10] MEDS: MetroNIDAZOLE 500 MG/100 ML 500 MG/100 ML BAG IVPB SCH ×2 (10:10→15:52)
[2021-08-10] MEDS ORDERED: Fosfomycin Tromethamine 3 GM Packet PO ONE (14:30)
[2021-08-10] MEDS: Ondansetron 4 MG/2 ML VIAL IVP PRN (14:33)
[2021-08-10] MEDS ORDERED: Acetaminophen/Butalbital/CaffeineTABLET PO ONE (20:27)
[2021-08-11] MEDS: MetroNIDAZOLE 500 MG/100 ML 500 MG/100 ML BAG IVPB SCH ×3 (00:01→17:23)
[2021-08-11] MEDS ORDERED: Acetaminophen/Butalbital/CaffeineTABLET PO PRN (03:00)
[2021-08-11] MEDS: Sodium Bicarbonate 75 MEQ in 0.45 % Sodium Chloride 1,000 ML IVC SCH ×2 (03:03→19:01)
[2021-08-11] MEDS ORDERED: Ketorolac 30 MG/ML VIAL IVP ONE (03:05)
[2021-08-11] MEDS: Prochlorperazine 10 MG/2 ML VIAL IVP PRN (03:33)
[2021-08-11 04:57] LABS: Calcium 7.4 mg/dL (8.6-10.3); Potassium 3.1 mEq/L (3.5-5.1)
[2021-08-11 05:02] LABS: Basophils % 0.4 %; Eosinophils # 0.1 K/mcL (0.0-0.6); Eosinophils % 1.7 %; Hematocrit 32.2 % (35.3-44.9); Hemoglobin 9.8 g/dL (11.5-15.4); Immature Granulocytes % 1.2 % (0-4); Lymphocytes # 1.6 K/mcL (0.6-4.6); Mean Corpuscular HGB Conc 30.4 g/dL (31.6-35.5); Mean Corpuscular Hemoglobin 28.3 pg (28.0-33.3); Mean Corpuscular Volume 93.1 fL (83.0-100.0); Mean Platelet Volume 8.9 fL (9.4-12.4); Monocytes # 0.6 K/mcL (0.0-1.3); Neutrophils # 4.8 K/mcL (1.6-8.9); Platelet Count 248 K/mcL (140-400); Red Blood Count 3.46 M/mcL (3.82-4.97); Red Cell Distribution Width 15.9 % (11.5-14.5); Segmented Neutrophils % 66.7 %; White Blood Count 7.2 K/mcL (4.3-11.1)
[2021-08-11] MEDS: *HR* Heparin 5,000 UNIT/ML VIAL SQ SCH ×2 (05:05→17:26)
[2021-08-11] MEDS ORDERED: Potassium Chloride 40 MEQ, Lidocaine 1% 2 ML in 0.9 % Sodium Chloride 500 ML IVPB ONE ×2 (07:27→07:41)
[2021-08-11] MEDS: Lactobacillus 1 EACH CAP.SPRINK PO SCH (08:34)
[2021-08-11] MEDS: rOPINIRole 1 MG TABLET PO SCH (08:34)
[2021-08-11] MEDS: Acetaminophen 325 MG TABLET PO PRN ×2 (14:04→22:58)
[2021-08-12] MEDS: MetroNIDAZOLE 500 MG/100 ML 500 MG/100 ML BAG IVPB SCH ×3 (00:37→15:19)
[2021-08-12] MEDS: *HR* Heparin 5,000 UNIT/ML VIAL SQ SCH ×2 (05:05→15:19)
[2021-08-12] MEDS ORDERED: *HR* LORazepam 0.5 MG TABLET PO ONE ×2 (05:05→20:47)
[2021-08-12] MEDS: Acetaminophen 325 MG TABLET PO PRN (05:19)
[2021-08-12 05:38] LABS: Basophils # 0.1 K/mcL (0.0-0.2); Basophils % 0.4 %; Eosinophils # 0.2 K/mcL (0.0-0.6); Eosinophils % 1.2 %; Hemoglobin 10.6 g/dL (11.5-15.4); Immature Granulocytes % 1.4 % (0-4); Lymphocytes # 2.1 K/mcL (0.6-4.6); Lymphocytes % 16.4 %; Mean Corpuscular HGB Conc 31.2 g/dL (31.6-35.5); Mean Corpuscular Hemoglobin 29.4 pg (28.0-33.3); Mean Corpuscular Volume 94.2 fL (83.0-100.0); Mean Platelet Volume 8.7 fL (9.4-12.4); Monocytes # 1.1 K/mcL (0.0-1.3); Monocytes % 8.3 %; Neutrophils # 9.4 K/mcL (1.6-8.9); Platelet Count 318 K/mcL (140-400); Red Blood Count 3.61 M/mcL (3.82-4.97); Red Cell Distribution Width 15.7 % (11.5-14.5); Segmented Neutrophils % 72.3 %
[2021-08-12 05:57] LABS: Calcium 7.4 mg/dL (8.6-10.3); Potassium 3.4 mEq/L (3.5-5.1)
[2021-08-12] MEDS ORDERED: Potassium Chloride 40 MEQ, Lidocaine 1% 2 ML in 0.9 % Sodium Chloride 500 ML IVPB ONE (07:39)
[2021-08-12] MEDS: Lactobacillus 1 EACH CAP.SPRINK PO SCH (09:15)
[2021-08-12] MEDS: rOPINIRole 1 MG TABLET PO SCH (09:15)
[2021-08-12] MEDS: Ondansetron 4 MG/2 ML VIAL IVP PRN (15:20)
[2021-08-12 21:27] LABS: Campylobacter by PCR Not detected (Not detect)
[2021-08-12 21:29] LABS: Adenovirus F 40/41 PCR Not detected (Not detect); Astrovirus PCR Not detected (Not detect); C.difficile Toxin A/B Gene PCR DETECTED (Not detect); Cryptosporidium by PCR Not detected (Not detect); Cyclospora cayetanensis PCR Not detected (Not detect); E. coli O157 by PCR Not detected (Not detect); Entamoeba histolytica PCR Not detected (Not detect); Enteroaggregative E.coli(EAEC) Not detected (Not detect); Enteropathogenic E.coli(EPEC) Not detected (Not detect); Enterotoxigenic E.coli (ETEC) Not detected (Not detect); Giardia lamblia PCR Not detected (Not detect); Norovirus GI/GII PCR Not detected (Not detect); Plesiomonas shigelloides PCR Not detected (Not detect); Rotavirus A PCR Not detected (Not detect); Salmonella PCR Not detected (Not detect); Sapovirus PCR Not detected (Not detect); Shig/EnteroinvasiveE coli EIEC Not detected (Not detect); Shigalike tox-prod E coli STEC Not detected (Not detect); Vibrio PCR Not detected (Not detect); Vibrio cholerae PCR Not detected (Not detect); Yersinia enterocolitica PCR Not detected (Not detect)
[2021-08-12] MEDS: Vancomycin Oral Soln 125 MG/2.5 ML UDC PO SCH (21:40)
[2021-08-13] MEDS: MetroNIDAZOLE 500 MG/100 ML 500 MG/100 ML BAG IVPB SCH ×3 (00:23→17:09)
[2021-08-13] MEDS: Ondansetron 4 MG/2 ML VIAL IVP PRN ×2 (02:11→10:26)
[2021-08-13] MEDS: *HR* Heparin 5,000 UNIT/ML VIAL SQ SCH ×2 (05:51→17:06)
[2021-08-13 06:10] LABS: Basophils # 0.1 K/mcL (0.0-0.2); Basophils % 0.5 %; Eosinophils # 0.1 K/mcL (0.0-0.6); Eosinophils % 0.9 %; Hematocrit 34.1 % (35.3-44.9); Hemoglobin 10.4 g/dL (11.5-15.4); Immature Granulocytes % 1.8 % (0-4); Lymphocytes # 1.7 K/mcL (0.6-4.6); Lymphocytes % 11.3 %; Mean Corpuscular HGB Conc 30.5 g/dL (31.6-35.5); Mean Corpuscular Hemoglobin 28.9 pg (28.0-33.3); Mean Corpuscular Volume 94.7 fL (83.0-100.0); Mean Platelet Volume 8.8 fL (9.4-12.4); Monocytes # 1.1 K/mcL (0.0-1.3); Monocytes % 7.1 %; Platelet Count 284 K/mcL (140-400); Red Cell Distribution Width 15.5 % (11.5-14.5); Segmented Neutrophils % 78.4 %; White Blood Count 15.3 K/mcL (4.3-11.1)
[2021-08-13 06:26] LABS: Calcium 7.1 mg/dL (8.6-10.3); Potassium 3.5 mEq/L (3.5-5.1)
[2021-08-13] MEDS: Vancomycin Oral Soln 125 MG/2.5 ML UDC PO SCH (10:03)
[2021-08-13] MEDS: rOPINIRole 1 MG TABLET PO SCH (10:26)
[2021-08-13] MEDS: Lactobacillus 1 EACH CAP.SPRINK PO SCH (10:27)
[2021-08-13] MEDS: Prochlorperazine 10 MG/2 ML VIAL IVP PRN (17:07)
[2021-08-14] MEDS: *HR* Heparin 5,000 UNIT/ML VIAL SQ SCH ×2 (04:23→17:25)
[2021-08-14 05:09] LABS: Basophils % 0.3 %; Eosinophils % 0.2 %; Hematocrit 31.7 % (35.3-44.9); Hemoglobin 9.8 g/dL (11.5-15.4); Immature Granulocytes % 2.1 % (0-4); Lymphocytes # 1.4 K/mcL (0.6-4.6); Lymphocytes % 11.1 %; Mean Corpuscular HGB Conc 30.9 g/dL (31.6-35.5); Mean Corpuscular Hemoglobin 29.4 pg (28.0-33.3); Mean Corpuscular Volume 95.2 fL (83.0-100.0); Mean Platelet Volume 8.9 fL (9.4-12.4); Monocytes # 1.2 K/mcL (0.0-1.3); Monocytes % 9.4 %; Neutrophils # 9.4 K/mcL (1.6-8.9); Platelet Count 223 K/mcL (140-400); Red Blood Count 3.33 M/mcL (3.82-4.97); Red Cell Distribution Width 15.7 % (11.5-14.5); Segmented Neutrophils % 76.9 %; White Blood Count 12.2 K/mcL (4.3-11.1)
[2021-08-14 05:30] LABS: Calcium 7.9 mg/dL (8.6-10.3); Magnesium 1.2 mg/dL (1.6-2.6); Potassium 3.5 mEq/L (3.5-5.1)
[2021-08-14 06:36] LABS: % Iron Saturation 16 % (15-50); Iron 21 mcg/dL (50-170); Transferrin 93 mg/dL (203-362)
[2021-08-14 06:55] LABS: Ferritin 771 ng/mL (10-120)
[2021-08-14] MEDS ORDERED: 0.9 % Sodium Chloride 1,000 ML IVC SCH (08:15)
[2021-08-14] MEDS: rOPINIRole 1 MG TABLET PO SCH (08:43)
[2021-08-14] MEDS: Lactobacillus 1 EACH CAP.SPRINK PO SCH (08:43)
[2021-08-15] MEDS: *HR* Heparin 5,000 UNIT/ML VIAL SQ SCH (05:14)
[2021-08-15] MEDS: rOPINIRole 1 MG TABLET PO SCH (07:56)
[2021-08-15] MEDS: Lactobacillus 1 EACH CAP.SPRINK PO SCH (07:56)
[2021-08-15] MEDS: Acetaminophen 325 MG TABLET PO PRN (08:04)
[2021-08-15 10:44] LABS: Basophils # 0.1 K/mcL (0.0-0.2); Basophils % 0.6 %; Eosinophils # 0.1 K/mcL (0.0-0.6); Hematocrit 31.6 % (35.3-44.9); Hemoglobin 9.8 g/dL (11.5-15.4); Immature Granulocytes % 2.7 % (0-4); Lymphocytes # 1.2 K/mcL (0.6-4.6); Lymphocytes % 10.9 %; Mean Corpuscular Hemoglobin 29.1 pg (28.0-33.3); Mean Corpuscular Volume 93.8 fL (83.0-100.0); Mean Platelet Volume 9.5 fL (9.4-12.4); Monocytes % 9.1 %; Nucleated Red Blood Cells 0.2 /100 WBC (0); Platelet Count 236 K/mcL (140-400); Red Blood Count 3.37 M/mcL (3.82-4.97); Red Cell Distribution Width 15.6 % (11.5-14.5); Segmented Neutrophils % 75.7 %; White Blood Count 10.5 K/mcL (4.3-11.1)
[2021-08-15 11:07] LABS: Calcium 7.8 mg/dL (8.6-10.3)
[2021-08-15 15:49] VITALS: BP 129/87; PULSE 107; TEMP 98.3; O2SAT 93
== END 2021-08-15 17:00 | DRG 690 ==
LOC: 3BNU 16:39 → EMEROOARM 16:39 → SUATTDRO 21:11 → 3BNU 22:00 → SUATTDRO 08-07 13:23
PROVIDERS: ADMIT Internal Medicine; ATTEND Internal Medicine

== ENCOUNTER 2021-10-10 13:39 | Inpatient (IN) ==
[2021-10-10 14:45] LABS: Calcium 8.5 mg/dL (8.6-10.3); Potassium 3.3 mEq/L (3.5-5.1)
[2021-10-10] MEDS ORDERED: cefTRIAXone 2,000 MG in 0.9 % Sodium Chloride Mini Bag 100 ML IVPB ONE (15:32)
[2021-10-10 15:40] LABS: Bilirubin,Urine Negative (Negative); Blood,Urine Moderate (Negative); Clarity,Urine Ex.Turbid (Clear); Color,Urine Dark-Orange (Yellow); Glucose,Urine (UA) Normal (Normal); Ketones,Urine Negative (Negative); Leukocyte Esterase,Urine Large (Negative); Nitrite,Urine Negative (Negative); Protein,Urine >=600 mg/dL (Neg-Trace); Specific Gravity,Urine 1.014 (1.010-1.025); Urobilinogen,Urine Normal (Normal)
[2021-10-10 16:19] LABS: Basophils # 0.1 K/mcL (0.0-0.2); Basophils % 0.7 %; Eosinophils % 0.1 %; Hematocrit 37.9 % (35.3-44.9); Hemoglobin 11.7 g/dL (11.5-15.4); Lymphocytes # 0.9 K/mcL (0.6-4.6); Lymphocytes % 5.1 %; Mean Corpuscular HGB Conc 30.9 g/dL (31.6-35.5); Mean Corpuscular Hemoglobin 28.7 pg (28.0-33.3); Mean Corpuscular Volume 93.1 fL (83.0-100.0); Mean Platelet Volume 9.4 fL (9.4-12.4); Monocytes # 0.6 K/mcL (0.0-1.3); Monocytes % 3.3 %; Neutrophils # 14.8 K/mcL (1.6-8.9); Platelet Count 384 K/mcL (140-400); Red Blood Count 4.07 M/mcL (3.82-4.97); Red Cell Distribution Width 15.2 % (11.5-14.5); Segmented Neutrophils % 87.8 %; White Blood Count 16.8 K/mcL (4.3-11.1)
[2021-10-10] MEDS ORDERED: Potassium Effervescent 25 MEQ TABLET.EFF PO ONE (16:25)
[2021-10-10] MEDS: 0.9 % Sodium Chloride 1,000 ML IVC SCH ×2 (16:28→17:43)
[2021-10-10] MEDS ORDERED: Naloxone 0.4 MG/ML INJ IVP PRN (17:24)
[2021-10-10] MEDS: Ondansetron 4 MG/2 ML VIAL IVP PRN (19:04)
[2021-10-10] MEDS: Ringers Solution, Lactated 1,000 ML IVC SCH (19:33)
[2021-10-10] MEDS: *HR* Promethazine 25 MG/ML VIAL IM PRN (21:24)
[2021-10-11 02:43] LABS: Basophils # 0.1 K/mcL (0.0-0.2); Basophils % 0.4 %; Eosinophils % 0.1 %; Hematocrit 32.5 % (35.3-44.9); Hemoglobin 10.5 g/dL (11.5-15.4); Immature Granulocytes % 3.6 % (0-4); Lymphocytes % 7.8 %; Mean Corpuscular HGB Conc 32.3 g/dL (31.6-35.5); Mean Corpuscular Hemoglobin 29.4 pg (28.0-33.3); Mean Platelet Volume 8.9 fL (9.4-12.4); Monocytes # 0.4 K/mcL (0.0-1.3); Monocytes % 2.9 %; Neutrophils # 10.8 K/mcL (1.6-8.9); Platelet Count 378 K/mcL (140-400); Red Blood Count 3.57 M/mcL (3.82-4.97); Segmented Neutrophils % 85.2 %; White Blood Count 12.7 K/mcL (4.3-11.1)
[2021-10-11 02:59] LABS: Calcium 7.7 mg/dL (8.6-10.3); Potassium 3.8 mEq/L (3.5-5.1)
[2021-10-11] MEDS ORDERED: 0.9 % Sodium Chloride 500 ML ONE ×2 (07:55→08:24)
[2021-10-11] MEDS ORDERED: *HR* Midazolam HCl 2 MG/2 ML VIAL ONE (08:24)
[2021-10-11] MEDS ORDERED: *HR* FentaNYL (PF) 100 MCG/2 ML VIAL ONE (08:24)
[2021-10-11] MEDS ORDERED: *HR* FentaNYL (PF) 100 MCG/2 ML VIAL IVP ONE (08:28)
[2021-10-11] MEDS ORDERED: *HR* Midazolam HCl 2 MG/2 ML VIAL IVP ONE (08:28)
[2021-10-11] MEDS ORDERED: Isovue-370 500 ML BOTTLE IVP ONE (08:55)
[2021-10-11] MEDS ORDERED: Isovue-300 50ML VIAL IVP ONE (08:56)
[2021-10-11] MEDS ORDERED: cefTRIAXone 2,000 MG in Water for inj. (sterile) 10 ML IVP SCH (09:00)
[2021-10-11] MEDS: cefTRIAXone 2,000 MG in 0.9 % Sodium Chloride Mini Bag 100 ML IVPB SCH (14:58)
[2021-10-11] MEDS: Ringers Solution, Lactated 1,000 ML IVC SCH (14:59)
[2021-10-11] MEDS: Fluconazole 100 MG TABLET PO SCH (15:14)
[2021-10-11] MEDS: *HR* Heparin 5,000 UNIT/ML VIAL SQ SCH (18:06)
[2021-10-11] MEDS: Lactobacillus 1 EACH CAP.SPRINK PO SCH (20:12)
[2021-10-11] MEDS: Estrogens, Conjugated CREAM 30 GM TUBE VG SCH (20:13)
[2021-10-11] MEDS: 0.9 % Sodium Chloride 1,000 ML IVC SCH ×4 (21:02→21:56)
[2021-10-12] MEDS: 0.9 % Sodium Chloride 1,000 ML IVC SCH ×4 (02:20→21:24)
[2021-10-12] MEDS: Ringers Solution, Lactated 1,000 ML IVC SCH ×2 (04:37→21:21)
[2021-10-12] MEDS: *HR* Heparin 5,000 UNIT/ML VIAL SQ SCH ×2 (05:01→17:14)
[2021-10-12 05:17] LABS: Basophils # 0.1 K/mcL (0.0-0.2); Basophils % 0.4 %; Eosinophils % 0.1 %; Hematocrit 29.7 % (35.3-44.9); Hemoglobin 9.1 g/dL (11.5-15.4); Immature Granulocytes % 3.9 % (0-4); Lymphocytes # 1.3 K/mcL (0.6-4.6); Mean Corpuscular HGB Conc 30.6 g/dL (31.6-35.5); Mean Corpuscular Hemoglobin 28.8 pg (28.0-33.3); Mean Platelet Volume 8.9 fL (9.4-12.4); Monocytes # 0.6 K/mcL (0.0-1.3); Monocytes % 5.3 %; Neutrophils # 9.2 K/mcL (1.6-8.9); Platelet Count 324 K/mcL (140-400); Red Blood Count 3.16 M/mcL (3.82-4.97); Red Cell Distribution Width 15.1 % (11.5-14.5); Segmented Neutrophils % 79.3 %; White Blood Count 11.6 K/mcL (4.3-11.1)
[2021-10-12 05:35] LABS: Calcium 7.4 mg/dL (8.6-10.3); Potassium 3.7 mEq/L (3.5-5.1)
[2021-10-12] MEDS: Fluconazole 100 MG TABLET PO SCH (09:10)
[2021-10-12] MEDS: Lactobacillus 1 EACH CAP.SPRINK PO SCH ×2 (09:10→19:37)
[2021-10-12] MEDS: cefTRIAXone 2,000 MG in 0.9 % Sodium Chloride Mini Bag 100 ML IVPB SCH (17:13)
[2021-10-12] MEDS: Acetaminophen 325 MG TABLET PO PRN (17:53)
[2021-10-12] MEDS: Estrogens, Conjugated CREAM 30 GM TUBE VG SCH (19:37)
[2021-10-13] MEDS: Acetaminophen 325 MG TABLET PO PRN ×2 (02:50→07:54)
[2021-10-13 04:53] LABS: Basophils # 0.1 K/mcL (0.0-0.2); Basophils % 0.6 %; Eosinophils % 0.1 %; Hematocrit 31.5 % (35.3-44.9); Hemoglobin 9.5 g/dL (11.5-15.4); Immature Granulocytes % 6.3 % (0-4); Lymphocytes # 1.7 K/mcL (0.6-4.6); Lymphocytes % 14.5 %; Mean Corpuscular HGB Conc 30.2 g/dL (31.6-35.5); Mean Corpuscular Hemoglobin 28.4 pg (28.0-33.3); Mean Corpuscular Volume 94.3 fL (83.0-100.0); Mean Platelet Volume 8.9 fL (9.4-12.4); Monocytes # 0.7 K/mcL (0.0-1.3); Monocytes % 5.7 %; Platelet Count 313 K/mcL (140-400); Red Blood Count 3.34 M/mcL (3.82-4.97); Segmented Neutrophils % 72.8 %; White Blood Count 11.6 K/mcL (4.3-11.1)
[2021-10-13 04:59] LABS: Neutrophils # 8.4 K/mcL (1.6-8.9)
[2021-10-13 05:05] LABS: Calcium 7.5 mg/dL (8.6-10.3); Potassium 3.8 mEq/L (3.5-5.1)
[2021-10-13] MEDS: *HR* Heparin 5,000 UNIT/ML VIAL SQ SCH ×2 (05:23→20:21)
[2021-10-13] MEDS ORDERED: Cefepime HCl 1,000 MG in Water for inj. (sterile) 10 ML IVP SCH (08:00)
[2021-10-13] MEDS: Fluconazole 100 MG TABLET PO SCH (10:25)
[2021-10-13] MEDS: Lactobacillus 1 EACH CAP.SPRINK PO SCH ×2 (10:25→20:15)
[2021-10-13] MEDS: *HR* Promethazine 25 MG/ML VIAL IM PRN ×2 (12:17→22:17)
[2021-10-13] MEDS: Ringers Solution, Lactated 1,000 ML IVC SCH (20:14)
[2021-10-13] MEDS: Estrogens, Conjugated CREAM 30 GM TUBE VG SCH (20:15)
[2021-10-13] MEDS: Cefepime HCl 1,000 MG in Water for inj. (sterile) 10 ML IVP SCH (21:04)
[2021-10-13] MEDS: ALPRAZolam 0.5 MG TABLET PO PRN (21:04)
[2021-10-13] MEDS: Ondansetron 4 MG/2 ML VIAL IVP PRN (21:05)
[2021-10-14] MEDS: *HR* Heparin 5,000 UNIT/ML VIAL SQ SCH ×2 (05:57→16:42)
[2021-10-14] MEDS: Acetaminophen 325 MG TABLET PO PRN (06:24)
[2021-10-14] MEDS: Lactobacillus 1 EACH CAP.SPRINK PO SCH ×2 (08:30→21:45)
[2021-10-14] MEDS: ALPRAZolam 0.5 MG TABLET PO PRN ×2 (08:31→21:45)
[2021-10-14] MEDS: Cefepime HCl 1,000 MG in Water for inj. (sterile) 10 ML IVP SCH ×2 (08:31→21:45)
[2021-10-14] MEDS: Fluconazole 100 MG TABLET PO SCH (08:31)
[2021-10-14] MEDS: Ringers Solution, Lactated 1,000 ML IVC SCH (08:36)
[2021-10-14 09:06] LABS: Calcium 7.9 mg/dL (8.6-10.3); Potassium 3.9 mEq/L (3.5-5.1)
[2021-10-14 09:26] LABS: Basophils # 0.1 K/mcL (0.0-0.2); Basophils % 0.6 %; Eosinophils % 0.1 %; Hematocrit 31.7 % (35.3-44.9); Hemoglobin 9.8 g/dL (11.5-15.4); Immature Granulocytes % 4.9 % (0-4); Lymphocytes # 2.3 K/mcL (0.6-4.6); Lymphocytes % 16.6 %; Mean Corpuscular HGB Conc 30.9 g/dL (31.6-35.5); Mean Corpuscular Hemoglobin 28.9 pg (28.0-33.3); Mean Corpuscular Volume 93.5 fL (83.0-100.0); Mean Platelet Volume 8.6 fL (9.4-12.4); Monocytes # 0.9 K/mcL (0.0-1.3); Monocytes % 6.6 %; Platelet Count 318 K/mcL (140-400); Red Blood Count 3.39 M/mcL (3.82-4.97); Segmented Neutrophils % 71.2 %
[2021-10-14] MEDS ORDERED: Metoclopramide 10 MG/2 ML VIAL IVP ONE (13:32)
[2021-10-14] MEDS: Ondansetron 4 MG/2 ML VIAL IVP PRN (13:58)
[2021-10-14] MEDS: amLODIPine 5 MG TABLET PO SCH (16:43)
[2021-10-14] MEDS: *HR* Promethazine 25 MG/ML VIAL IM PRN (16:49)
[2021-10-14] MEDS: polyethylene glycoL 3350 17 GM POWD.PACK PO SCH (18:36)
[2021-10-14] MEDS: Prochlorperazine 10 MG/2 ML VIAL IVP PRN (18:52)
[2021-10-14] MEDS: Sennosides/Docusate Sodium TABLET PO SCH (21:45)
[2021-10-14] MEDS: Estrogens, Conjugated CREAM 30 GM TUBE VG SCH (21:58)
[2021-10-15] MEDS ORDERED: Prochlorperazine 10 MG/2 ML VIAL IVP PRN (01:26)
[2021-10-15] MEDS: Ringers Solution, Lactated 1,000 ML IVC SCH ×3 (01:28→21:21)
[2021-10-15] MEDS: Prochlorperazine 10 MG/2 ML VIAL IVP PRN (01:47)
[2021-10-15] MEDS: *HR* Heparin 5,000 UNIT/ML VIAL SQ SCH ×2 (05:23→17:07)
[2021-10-15 06:39] LABS: Basophils # 0.1 K/mcL (0.0-0.2); Basophils % 0.4 %; Eosinophils # 0.1 K/mcL (0.0-0.6); Eosinophils % 0.4 %; Hematocrit 31.7 % (35.3-44.9); Hemoglobin 9.9 g/dL (11.5-15.4); Immature Granulocytes % 3.5 % (0-4); Lymphocytes # 2.1 K/mcL (0.6-4.6); Lymphocytes % 15.5 %; Mean Corpuscular HGB Conc 31.2 g/dL (31.6-35.5); Mean Corpuscular Hemoglobin 29.3 pg (28.0-33.3); Mean Corpuscular Volume 93.8 fL (83.0-100.0); Mean Platelet Volume 8.7 fL (9.4-12.4); Monocytes # 0.9 K/mcL (0.0-1.3); Monocytes % 6.5 %; Neutrophils # 9.8 K/mcL (1.6-8.9); Platelet Count 276 K/mcL (140-400); Red Blood Count 3.38 M/mcL (3.82-4.97); Red Cell Distribution Width 14.8 % (11.5-14.5); Segmented Neutrophils % 73.7 %; White Blood Count 13.3 K/mcL (4.3-11.1)
[2021-10-15 06:54] LABS: Calcium 7.9 mg/dL (8.6-10.3); Potassium 4.1 mEq/L (3.5-5.1)
[2021-10-15] MEDS: Fluconazole 100 MG TABLET PO SCH (08:06)
[2021-10-15] MEDS: polyethylene glycoL 3350 17 GM POWD.PACK PO SCH (08:06)
[2021-10-15] MEDS: amLODIPine 5 MG TABLET PO SCH (08:07)
[2021-10-15] MEDS: ALPRAZolam 0.5 MG TABLET PO PRN (08:07)
[2021-10-15] MEDS: Sennosides/Docusate Sodium TABLET PO SCH ×2 (08:07→20:42)
[2021-10-15] MEDS: Lactobacillus 1 EACH CAP.SPRINK PO SCH ×2 (08:07→20:41)
[2021-10-15] MEDS: Cefepime HCl 1,000 MG in Water for inj. (sterile) 10 ML IVP SCH ×2 (08:09→21:20)
[2021-10-15] MEDS: Estrogens, Conjugated CREAM 30 GM TUBE VG SCH (20:44)
[2021-10-16 05:25] LABS: Basophils % 0.3 %; Eosinophils # 0.2 K/mcL (0.0-0.6); Eosinophils % 1.4 %; Hematocrit 30.2 % (35.3-44.9); Hemoglobin 9.2 g/dL (11.5-15.4); Immature Granulocytes % 3.4 % (0-4); Lymphocytes # 2.2 K/mcL (0.6-4.6); Lymphocytes % 19.5 %; Mean Corpuscular HGB Conc 30.5 g/dL (31.6-35.5); Mean Corpuscular Hemoglobin 28.8 pg (28.0-33.3); Mean Corpuscular Volume 94.7 fL (83.0-100.0); Mean Platelet Volume 8.7 fL (9.4-12.4); Monocytes # 0.7 K/mcL (0.0-1.3); Monocytes % 6.3 %; Neutrophils # 7.6 K/mcL (1.6-8.9); Platelet Count 234 K/mcL (140-400); Red Blood Count 3.19 M/mcL (3.82-4.97); Red Cell Distribution Width 14.7 % (11.5-14.5); Segmented Neutrophils % 69.1 %; White Blood Count 11.1 K/mcL (4.3-11.1)
[2021-10-16 06:22] LABS: Calcium 7.8 mg/dL (8.6-10.3)
[2021-10-16] MEDS: *HR* Heparin 5,000 UNIT/ML VIAL SQ SCH ×2 (06:33→17:18)
[2021-10-16] MEDS: Sennosides/Docusate Sodium TABLET PO SCH ×2 (08:39→20:00)
[2021-10-16] MEDS: amLODIPine 5 MG TABLET PO SCH (08:39)
[2021-10-16] MEDS: polyethylene glycoL 3350 17 GM POWD.PACK PO SCH (08:39)
[2021-10-16] MEDS: Lactobacillus 1 EACH CAP.SPRINK PO SCH ×2 (08:39→20:00)
[2021-10-16] MEDS: Fluconazole 100 MG TABLET PO SCH (08:39)
[2021-10-16] MEDS: Cefepime HCl 1,000 MG in Water for inj. (sterile) 10 ML IVP SCH (08:40)
[2021-10-16] MEDS: Acetaminophen 325 MG TABLET PO PRN (08:52)
[2021-10-16] MEDS: Ringers Solution, Lactated 1,000 ML IVC SCH (08:53)
[2021-10-16] MEDS ORDERED: Lidocaine -MPF 1% 2 ML VIAL ID PRN (12:24)
[2021-10-16] MEDS ORDERED: hydrOXYzine pamoate 25 MG CAPSULE PO PRN (16:42)
[2021-10-16] MEDS: Linezolid 600 MG TABLET PO SCH (20:00)
[2021-10-16] MEDS: Estrogens, Conjugated CREAM 30 GM TUBE VG SCH (23:04)
[2021-10-17] MEDS: Ringers Solution, Lactated 1,000 ML IVC SCH ×3 (03:37→23:46)
[2021-10-17] MEDS: *HR* Heparin 5,000 UNIT/ML VIAL SQ SCH ×2 (05:42→17:18)
[2021-10-17 06:47] LABS: Basophils % 0.3 %; Eosinophils # 0.2 K/mcL (0.0-0.6); Eosinophils % 2.3 %; Hematocrit 28.7 % (35.3-44.9); Hemoglobin 8.6 g/dL (11.5-15.4); Immature Granulocytes % 2.7 % (0-4); Lymphocytes % 26.2 %; Mean Corpuscular Hemoglobin 28.3 pg (28.0-33.3); Mean Corpuscular Volume 94.4 fL (83.0-100.0); Mean Platelet Volume 8.7 fL (9.4-12.4); Monocytes # 0.6 K/mcL (0.0-1.3); Monocytes % 7.7 %; Neutrophils # 4.7 K/mcL (1.6-8.9); Platelet Count 193 K/mcL (140-400); Red Blood Count 3.04 M/mcL (3.82-4.97); Red Cell Distribution Width 14.6 % (11.5-14.5); Segmented Neutrophils % 60.8 %; White Blood Count 7.7 K/mcL (4.3-11.1)
[2021-10-17 07:11] LABS: Calcium 7.9 mg/dL (8.6-10.3); Potassium 4.3 mEq/L (3.5-5.1)
[2021-10-17] MEDS: Lactobacillus 1 EACH CAP.SPRINK PO SCH ×2 (08:15→21:29)
[2021-10-17] MEDS: Cefepime HCl 2,000 MG in 0.9 % Sodium Chloride Mini Bag 100 ML IVPB SCH (08:15)
[2021-10-17] MEDS: Fluconazole 100 MG TABLET PO SCH (08:15)
[2021-10-17] MEDS: Sennosides/Docusate Sodium TABLET PO SCH ×2 (08:16→21:29)
[2021-10-17] MEDS: Linezolid 600 MG TABLET PO SCH ×2 (08:16→21:28)
[2021-10-17] MEDS: amLODIPine 5 MG TABLET PO SCH (08:16)
[2021-10-17] MEDS: polyethylene glycoL 3350 17 GM POWD.PACK PO SCH (08:16)
[2021-10-17] MEDS: Estrogens, Conjugated CREAM 30 GM TUBE VG SCH (21:31)
[2021-10-18] MEDS: *HR* Heparin 5,000 UNIT/ML VIAL SQ SCH ×2 (05:56→17:45)
[2021-10-18 07:11] LABS: Basophils % 0.4 %; Eosinophils # 0.2 K/mcL (0.0-0.6); Eosinophils % 2.6 %; Hematocrit 28.2 % (35.3-44.9); Hemoglobin 8.6 g/dL (11.5-15.4); Immature Granulocytes % 1.9 % (0-4); Lymphocytes # 1.9 K/mcL (0.6-4.6); Lymphocytes % 26.1 %; Mean Corpuscular HGB Conc 30.5 g/dL (31.6-35.5); Mean Corpuscular Hemoglobin 28.7 pg (28.0-33.3); Mean Platelet Volume 9.3 fL (9.4-12.4); Monocytes # 0.5 K/mcL (0.0-1.3); Monocytes % 6.5 %; Neutrophils # 4.6 K/mcL (1.6-8.9); Platelet Count 159 K/mcL (140-400); Red Cell Distribution Width 14.4 % (11.5-14.5); Segmented Neutrophils % 62.5 %; White Blood Count 7.4 K/mcL (4.3-11.1)
[2021-10-18] MEDS ORDERED: Ondansetron 4 MG/2 ML VIAL IVP PRN (08:08)
[2021-10-18 08:15] LABS: Magnesium 1.2 mg/dL (1.6-2.6)
[2021-10-18] MEDS: *HR* Promethazine 25 MG/ML VIAL IM PRN (08:28)
[2021-10-18] MEDS: amLODIPine 5 MG TABLET PO SCH (08:31)
[2021-10-18] MEDS: Cefepime HCl 2,000 MG in 0.9 % Sodium Chloride Mini Bag 100 ML IVPB SCH (08:31)
[2021-10-18] MEDS: Sennosides/Docusate Sodium TABLET PO SCH ×2 (08:31→20:38)
[2021-10-18] MEDS: polyethylene glycoL 3350 17 GM POWD.PACK PO SCH ×2 (08:31→08:34)
[2021-10-18] MEDS: Fluconazole 100 MG TABLET PO SCH (08:31)
[2021-10-18] MEDS: Lactobacillus 1 EACH CAP.SPRINK PO SCH ×2 (08:31→20:37)
[2021-10-18] MEDS: Linezolid 600 MG TABLET PO SCH ×2 (08:31→20:38)
[2021-10-18] MEDS: ALPRAZolam 0.5 MG TABLET PO PRN (12:47)
[2021-10-18] MEDS: Prochlorperazine 10 MG/2 ML VIAL IVP PRN (13:23)
[2021-10-18] MEDS: Ringers Solution, Lactated 1,000 ML IVC SCH ×2 (18:15→23:32)
[2021-10-18] MEDS: Estrogens, Conjugated CREAM 30 GM TUBE VG SCH (20:39)
[2021-10-19 03:03] LABS: Calcium 8.6 mg/dL (8.6-10.3); Magnesium 2.1 mg/dL (1.6-2.6); Potassium 4.1 mEq/L (3.5-5.1)
[2021-10-19 03:12] LABS: Basophils % 0.4 %; Eosinophils % 2.5 %; Monocytes % 6.1 %; Red Cell Distribution Width 14.4 % (11.5-14.5)
[2021-10-19 03:14] LABS: Eosinophils # 0.2 K/mcL (0.0-0.6); Hematocrit 29.1 % (35.3-44.9); Immature Granulocytes % 1.5 % (0-4); Immature Platelets 4.6 % (1.1-6.1); Lymphocytes # 2.1 K/mcL (0.6-4.6); Lymphocytes % 24.6 %; Mean Corpuscular HGB Conc 30.9 g/dL (31.6-35.5); Mean Corpuscular Hemoglobin 28.5 pg (28.0-33.3); Mean Corpuscular Volume 92.1 fL (83.0-100.0); Mean Platelet Volume 10.8 fL (9.4-12.4); Monocytes # 0.5 K/mcL (0.0-1.3); Neutrophils # 5.5 K/mcL (1.6-8.9); Platelet Count 132 K/mcL (140-400); Red Blood Count 3.16 M/mcL (3.82-4.97); Segmented Neutrophils % 64.9 %; White Blood Count 8.5 K/mcL (4.3-11.1)
[2021-10-19] MEDS: *HR* Heparin 5,000 UNIT/ML VIAL SQ SCH ×2 (06:20→17:30)
[2021-10-19 06:21] LABS: Platelet Estimate Normal (Normal)
[2021-10-19] MEDS: polyethylene glycoL 3350 17 GM POWD.PACK PO SCH (08:06)
[2021-10-19] MEDS: Linezolid 600 MG TABLET PO SCH ×2 (08:12→20:03)
[2021-10-19] MEDS: Lactobacillus 1 EACH CAP.SPRINK PO SCH ×2 (08:12→20:02)
[2021-10-19] MEDS: Fluconazole 100 MG TABLET PO SCH (08:12)
[2021-10-19] MEDS: amLODIPine 5 MG TABLET PO SCH (08:12)
[2021-10-19] MEDS: Sennosides/Docusate Sodium TABLET PO SCH ×2 (08:12→20:03)
[2021-10-19] MEDS: Cefepime HCl 2,000 MG in 0.9 % Sodium Chloride Mini Bag 100 ML IVPB SCH (08:13)
[2021-10-19 10:34] VITALS: TEMP 97.8
[2021-10-19] MEDS: *HR* LORazepam 2 MG/ML VIAL IVP PRN ×2 (10:34→17:30)
[2021-10-19 15:48] VITALS: BP 144/74; PULSE 92; O2SAT 95
[2021-10-19] MEDS: Estrogens, Conjugated CREAM 30 GM TUBE VG SCH (20:05)
== END 2021-10-19 20:27 | DRG 698 ==
LOC: 3ANU 13:39 → EMEROOARM 13:39 → 3ANU 18:34 → SUATTDRO 10-11 18:22
PROVIDERS: ADMIT Internal Medicine; ATTEND Pharmacist

== ENCOUNTER 2021-12-19 17:12 | Inpatient (IN) ==
[2021-12-19] MEDS ORDERED: Isovue-370 500 ML BOTTLE IVP ONE (18:13)
[2021-12-19] MEDS ORDERED: 0.9 % Sodium Chloride 500 ML IVC ONE (18:13)
[2021-12-19 20:41] LABS: Bilirubin,Urine Negative (Negative); Blood,Urine Trace-intact (Negative); Clarity,Urine Cloudy (Clear); Color,Urine Yellow (Yellow); Glucose,Urine (UA) Normal (Normal); Ketones,Urine Negative (Negative); Leukocyte Esterase,Urine Trace (Negative); Nitrite,Urine Negative (Negative); PH,Urine 7.5 pH Units (5.0-8.0); Protein,Urine 100 mg/dL (Neg-Trace); Specific Gravity,Urine 1.025 (1.010-1.025); Urobilinogen,Urine Normal (Normal)
[2021-12-19 20:44] LABS: Urine Specimen Comments Mucoid Specimen
[2021-12-19 20:46] LABS: Hyaline Casts,Urine None Seen per lpf (None Seen)
[2021-12-19 20:47] LABS: Mucus,Urine Many per lpf (None-Few); RBC,Urine 0-3 per hpf (0-3); WBC,Urine 15-30 per hpf (0-3)
[2021-12-19 20:48] LABS: Transitional Epi Cells,Urine Few per hpf (None-Few)
[2021-12-19 20:49] LABS: Bacteria,Urine None Seen per hpf (None-Few); Squamous Epithelial Cell,Urine Moderate per hpf (None-Few)
[2021-12-19 22:09] LABS: Hematocrit 38.1 % (35.3-44.9); Hemoglobin 12.3 g/dL (11.5-15.4); Mean Corpuscular HGB Conc 32.3 g/dL (31.6-35.5); Mean Corpuscular Hemoglobin 29.1 pg (28.0-33.3); Mean Corpuscular Volume 90.1 fL (83.0-100.0); Mean Platelet Volume 9.3 fL (9.4-12.4); Platelet Count 311 K/mcL (140-400); Red Blood Count 4.23 M/mcL (3.82-4.97); Red Cell Distribution Width 16.7 % (11.5-14.5); White Blood Count 17.6 K/mcL (4.3-11.1)
[2021-12-19 22:27] LABS: Albumin/Globulin Ratio 0.7 (1.1-2.2); Bilirubin,Direct 0.1 mg/dL (0.0-0.2); Bilirubin,Indirect 0.2 mg/dL (0.0-1.0); Bilirubin,Total 0.3 mg/dL (0.3-1.0); Calcium 8.5 mg/dL (8.6-10.3); Globulin 4.4 g/dL (2.4-3.5); Potassium 3.7 mEq/L (3.5-5.1); Total Protein 7.4 g/dL (6.4-8.9)
[2021-12-19 22:41] LABS: Monocytes # 0.9 K/mcL (0.0-1.3); Neutrophils # 13.7 K/mcL (1.6-8.9); Reactive Lymphocytes Present (Not Present)
[2021-12-19 22:42] LABS: Platelet Estimate Normal (Normal)
[2021-12-20] MEDS ORDERED: Cefepime HCl 2,000 MG in 0.9 % Sodium Chloride 10 ML IVP ONE (00:33)
[2021-12-20] MEDS ORDERED: Nitrofurantoin (BID) 100 MG CAPSULE PO ONE (00:45)
[2021-12-20] MEDS ORDERED: Melatonin 3 MG TABLET PO PRN (01:30)
[2021-12-20] MEDS ORDERED: Naloxone 0.4 MG/ML INJ IVP PRN (01:30)
[2021-12-20] MEDS ORDERED: Ondansetron ODT 4 MG TAB.RAPDIS SL PRN (01:30)
[2021-12-20] MEDS: 0.9 % Sodium Chloride 1,000 ML IVC SCH (02:49)
[2021-12-20] MEDS: Cefepime HCl 1,000 MG in 0.9 % Sodium Chloride 10 ML IVP SCH ×2 (05:45→16:33)
[2021-12-20] MEDS ORDERED: *HR* Dextrose 50 % in Water (Syg) 50 ML SYRINGE IVP PRN (06:02)
[2021-12-20] MEDS ORDERED: Dextrose Gel 15 GM/37.5 ML TUBE PO PRN ×2 (06:02)
[2021-12-20] MEDS ORDERED: D5% in Water 1,000 ML IVC PRN (06:02)
[2021-12-20] MEDS ORDERED: Lidocaine/EPI 1:100k 1% 50 ML VIAL ONE (09:39)
[2021-12-20] MEDS ORDERED: 0.9 % Sodium Chloride 500 ML ONE (09:39)
[2021-12-20] MEDS ORDERED: Isovue-300 50ML VIAL IVP ONE (10:31)
[2021-12-20 17:16] LABS: Basophils # 0.2 K/mcL (0.0-0.2); Eosinophils # 0.1 K/mcL (0.0-0.6); Eosinophils % 0.7 %; Hematocrit 35.7 % (35.3-44.9); Hemoglobin 12.1 g/dL (11.5-15.4); Immature Granulocytes % 4.4 % (0-4); Lymphocytes # 2.1 K/mcL (0.6-4.6); Lymphocytes % 12.8 %; Mean Corpuscular HGB Conc 33.9 g/dL (31.6-35.5); Mean Corpuscular Hemoglobin 30.1 pg (28.0-33.3); Mean Corpuscular Volume 88.8 fL (83.0-100.0); Monocytes # 0.9 K/mcL (0.0-1.3); Monocytes % 5.2 %; Neutrophils # 12.3 K/mcL (1.6-8.9); Platelet Count 287 K/mcL (140-400); Red Blood Count 4.02 M/mcL (3.82-4.97); Red Cell Distribution Width 16.5 % (11.5-14.5); Segmented Neutrophils % 75.9 %; White Blood Count 16.2 K/mcL (4.3-11.1)
[2021-12-20 17:28] LABS: Activated Partial Thrombo Time 28.9 Seconds (26.0-36.0)
[2021-12-20 17:29] LABS: Prothrombin Time 11.2 Seconds (9.4-12.1)
[2021-12-20 18:13] LABS: Calcium 8.4 mg/dL (8.6-10.3); Chol/HDL Ratio 2.5 (0-4.9); Magnesium 1.7 mg/dL (1.6-2.6); Potassium 2.9 mEq/L (3.5-5.1)
[2021-12-20] MEDS: Acetaminophen 325 MG TABLET PO PRN (18:20)
[2021-12-21] MEDS: Cefepime HCl 1,000 MG in 0.9 % Sodium Chloride 10 ML IVP SCH ×2 (05:30→17:19)
[2021-12-21 05:52] LABS: Basophils % 0.3 %; Eosinophils # 0.2 K/mcL (0.0-0.6); Eosinophils % 1.3 %; Hematocrit 31.8 % (35.3-44.9); Immature Granulocytes % 4.6 % (0-4); Lymphocytes # 2.3 K/mcL (0.6-4.6); Lymphocytes % 15.4 %; Mean Corpuscular HGB Conc 31.8 g/dL (31.6-35.5); Mean Corpuscular Hemoglobin 28.8 pg (28.0-33.3); Mean Corpuscular Volume 90.6 fL (83.0-100.0); Neutrophils # 10.5 K/mcL (1.6-8.9); Platelet Count 245 K/mcL (140-400); Red Blood Count 3.51 M/mcL (3.82-4.97); Segmented Neutrophils % 71.4 %; White Blood Count 14.7 K/mcL (4.3-11.1)
[2021-12-21 06:06] LABS: Hemoglobin 10.1 g/dL (11.5-15.4)
[2021-12-21] MEDS: 0.9 % Sodium Chloride 1,000 ML IVC SCH (09:23)
[2021-12-21] MEDS ORDERED: *HR* LORazepam 1 MG TABLET PO PRN (11:16)
[2021-12-21] MEDS ORDERED: DAPTOmycin 300 MG in 0.9 % Sodium Chloride 100 ML IVPB SCH (16:00)
[2021-12-22] MEDS: Cefepime HCl 1,000 MG in 0.9 % Sodium Chloride 10 ML IVP SCH (05:30)
[2021-12-22 05:33] LABS: Basophils # 0.1 K/mcL (0.0-0.2); Basophils % 0.9 %; Eosinophils # 0.2 K/mcL (0.0-0.6); Eosinophils % 1.6 %; Hematocrit 29.5 % (35.3-44.9); Hemoglobin 9.5 g/dL (11.5-15.4); Immature Granulocytes % 3.2 % (0-4); Lymphocytes # 1.9 K/mcL (0.6-4.6); Lymphocytes % 16.3 %; Mean Corpuscular HGB Conc 32.2 g/dL (31.6-35.5); Mean Corpuscular Hemoglobin 29.1 pg (28.0-33.3); Mean Corpuscular Volume 90.5 fL (83.0-100.0); Mean Platelet Volume 8.9 fL (9.4-12.4); Monocytes # 0.9 K/mcL (0.0-1.3); Monocytes % 7.4 %; Neutrophils # 8.2 K/mcL (1.6-8.9); Platelet Count 187 K/mcL (140-400); Red Blood Count 3.26 M/mcL (3.82-4.97); Red Cell Distribution Width 17.4 % (11.5-14.5); Segmented Neutrophils % 70.6 %; White Blood Count 11.6 K/mcL (4.3-11.1)
[2021-12-22 05:52] LABS: Albumin 2.2 g/dL (3.5-5.7); Albumin/Globulin Ratio 0.7 (1.1-2.2); Bilirubin,Total 0.3 mg/dL (0.3-1.0); Calcium 7.4 mg/dL (8.6-10.3); Globulin 3.2 g/dL (2.4-3.5); Potassium 4.1 mEq/L (3.5-5.1); Total Protein 5.4 g/dL (6.4-8.9)
[2021-12-22] MEDS: Aspirin Enteric Coated 81 MG Tablet PO SCH (08:48)
[2021-12-22] MEDS: Acetaminophen 325 MG TABLET PO PRN (12:32)
[2021-12-22] MEDS: Piperacillin/Tazobactam 3.375 GM in 0.9 % Sodium Chloride Mini Bag 100 ML IVPB SCH (17:23)
[2021-12-23] MEDS: Piperacillin/Tazobactam 3.375 GM in 0.9 % Sodium Chloride Mini Bag 100 ML IVPB SCH ×3 (00:08→17:10)
[2021-12-23] MEDS: Aspirin Enteric Coated 81 MG Tablet PO SCH (07:28)
[2021-12-24] MEDS: Piperacillin/Tazobactam 3.375 GM in 0.9 % Sodium Chloride Mini Bag 100 ML IVPB SCH ×3 (03:58→15:46)
[2021-12-24] MEDS: Aspirin Enteric Coated 81 MG Tablet PO SCH (09:51)
[2021-12-24 10:22] LABS: Estimated Average Glucose 120 mg/dl; Hemoglobin A1C 5.8 %
[2021-12-24 11:46] VITALS: TEMP 97.6
[2021-12-24] MEDS: Acetaminophen 325 MG TABLET PO PRN (14:02)
[2021-12-24 15:49] VITALS: BP 119/75; PULSE 93; O2SAT 93
[2021-12-24 16:52] LABS: Adenovirus Not Detected (Not Detect); Bordetella Pertussis Not Detected (Not Detect); Chlamydophila pneumoniae Not Detected (Not Detect); Coronavirus 229E Not Detected (Not Detect); Coronavirus HKU1 Not Detected (Not Detect); Coronavirus NL63 Not Detected (Not Detect); Coronavirus OC43 Not Detected (Not Detect); Human Metapneumovirus Not Detected (Not Detect); Human Rhinovirus/Enterovirus Not Detected (Not Detect); Influenza A Subtype 2009 H1 Not Detected (Not Detect); Influenza B Not Detected (Not Detect); Mycoplasma pneumoniae Not Detected (Not Detect); Parainfluenza Virus 1 Not Detected (Not Detect); Parainfluenza Virus 2 Not Detected (Not Detect); Parainfluenza Virus 3 Not Detected (Not Detect); Parainfluenza Virus 4 Not Detected (Not Detect); Respiratory Syncytial Virus Not Detected (Not Detect); SARS-CoV-2 Not Detected (Not Detect)
== END 2021-12-24 19:05 | DRG 698 ==
LOC: 3ANU 17:12 → EMEROOARM 17:12 → SUATTDRO 12-20 01:12 → 3ANU 12-20 01:50
PROVIDERS: ADMIT Family Medicine; ATTEND Registered Nurse

== ENCOUNTER 2022-01-02 18:55 | Inpatient (IN) ==
[2022-01-02] MEDS ORDERED: 0.9 % Sodium Chloride 1,000 ML ONE (19:42)
[2022-01-02] MEDS ORDERED: 0.9 % Sodium Chloride 250 ML ONE ×2 (19:44→23:07)
[2022-01-02] MEDS ORDERED: Pantoprazole 40 MG VIAL IVP ONE (20:03)
[2022-01-02] MEDS ORDERED: 0.9 % Sodium Chloride 1,000 ML IVC ONE (20:05)
[2022-01-02] MEDS ORDERED: Isovue-370 500 ML BOTTLE IVP ONE (20:06)
[2022-01-02] MEDS: *HR* Midazolam HCl 2 MG/2 ML VIAL IVP PRN ×2 (20:26→20:40)
[2022-01-02 21:15] LABS: Basophils # 0.1 K/mcL (0.0-0.2); Basophils % 0.7 %; Eosinophils # 0.1 K/mcL (0.0-0.6); Eosinophils % 0.7 %; Hematocrit 24.2 % (35.3-44.9); Hemoglobin 7.7 g/dL (11.5-15.4); Immature Granulocytes % 1.2 % (0-4); Lymphocytes # 3.2 K/mcL (0.6-4.6); Lymphocytes % 32.3 %; Mean Corpuscular HGB Conc 31.8 g/dL (31.6-35.5); Mean Corpuscular Hemoglobin 29.3 pg (28.0-33.3); Mean Platelet Volume 9.9 fL (9.4-12.4); Monocytes # 0.7 K/mcL (0.0-1.3); Monocytes % 7.5 %; Neutrophils # 5.7 K/mcL (1.6-8.9); Nucleated Red Blood Cells 0.3 /100 WBC (0); Platelet Count 195 K/mcL (140-400); Red Blood Count 2.63 M/mcL (3.82-4.97); Red Cell Distribution Width 17.2 % (11.5-14.5); Segmented Neutrophils % 57.6 %; White Blood Count 9.9 K/mcL (4.3-11.1)
[2022-01-02 21:24] LABS: INR 1.2; Prothrombin Time 13.5 Seconds (9.4-12.1)
[2022-01-02 21:27] LABS: Activated Partial Thrombo Time 33.6 Seconds (26.0-36.0)
[2022-01-02 21:37] LABS: Albumin 1.7 g/dL (3.5-5.7); Albumin/Globulin Ratio 0.6 (1.1-2.2); Bilirubin,Total 0.2 mg/dL (0.3-1.0); Calcium 7.1 mg/dL (8.6-10.3); Globulin 2.8 g/dL (2.4-3.5); Potassium 3.1 mEq/L (3.5-5.1); Total Protein 4.5 g/dL (6.4-8.9)
[2022-01-03] MEDS: Norepinephrine 4 MG/254 ML IV.SOLN IVC SCH ×2 (00:36→09:04)
[2022-01-03] MEDS ORDERED: 0.9 % Sodium Chloride 500 ML IVC ONE (01:04)
[2022-01-03] MEDS ORDERED: Melatonin 3 MG TABLET PO PRN (02:55)
[2022-01-03] MEDS ORDERED: Naloxone 0.4 MG/ML INJ IVP PRN (02:55)
[2022-01-03 03:04] LABS: Hemoglobin 12.1 g/dL (11.5-15.4)
[2022-01-03] MEDS ORDERED: Dextrose 4 GM Chewable Tablets PO PRN ×2 (03:04)
[2022-01-03] MEDS ORDERED: D5% in Water 1,000 ML IVC PRN (03:04)
[2022-01-03] MEDS ORDERED: Pantoprazole 40 MG VIAL IVP ONE (03:11)
[2022-01-03] MEDS ORDERED: Calcium Gluconate 1gm/50mL 1 GM/50 ML BAG IVPB ONE ×2 (04:29→13:46)
[2022-01-03] MEDS ORDERED: Albumin 25% 25gram/100mL 25 GM/100 ML IV.SOLN IVPB ONE (04:29)
[2022-01-03 04:32] LABS: Basophils # 0.1 K/mcL (0.0-0.2); Basophils % 0.8 %; Eosinophils # 0.2 K/mcL (0.0-0.6); Eosinophils % 1.9 %; Hematocrit 34.5 % (35.3-44.9); Hemoglobin 11.7 g/dL (11.5-15.4); Immature Granulocytes % 1.3 % (0-4); Lymphocytes # 1.9 K/mcL (0.6-4.6); Lymphocytes % 19.7 %; Mean Corpuscular HGB Conc 33.9 g/dL (31.6-35.5); Mean Corpuscular Hemoglobin 31.3 pg (28.0-33.3); Mean Corpuscular Volume 92.2 fL (83.0-100.0); Mean Platelet Volume 9.5 fL (9.4-12.4); Monocytes # 0.5 K/mcL (0.0-1.3); Monocytes % 5.7 %; Neutrophils # 6.7 K/mcL (1.6-8.9); Platelet Count 137 K/mcL (140-400); Red Blood Count 3.74 M/mcL (3.82-4.97); Red Cell Distribution Width 15.4 % (11.5-14.5); Segmented Neutrophils % 70.6 %; White Blood Count 9.4 K/mcL (4.3-11.1)
[2022-01-03 04:34] LABS: VBG Ionized Calcium 1.08 mmol/L (1.15-1.35)
[2022-01-03 04:42] LABS: INR 1.1; Prothrombin Time 12.5 Seconds (9.4-12.1)
[2022-01-03 04:44] LABS: Activated Partial Thrombo Time 30.9 Seconds (26.0-36.0)
[2022-01-03 04:52] LABS: Albumin 1.8 g/dL (3.5-5.7); Albumin/Globulin Ratio 0.6 (1.1-2.2); Bilirubin,Total 0.4 mg/dL (0.3-1.0); Calcium 6.6 mg/dL (8.6-10.3); Globulin 2.8 g/dL (2.4-3.5); Magnesium 1.4 mg/dL (1.6-2.6); Potassium 2.9 mEq/L (3.5-5.1); Total Protein 4.6 g/dL (6.4-8.9)
[2022-01-03] MEDS: Calcium Gluconate 1gm/50mL 1 GM/50 ML BAG IVPB SCH ×2 (06:26→07:12)
[2022-01-03] MEDS: *HR* Dextrose 50 % in Water (Syg) 50 ML SYRINGE IVP PRN ×2 (11:29→16:16)
[2022-01-03 12:42] LABS: Hematocrit 30.9 % (35.3-44.9)
[2022-01-03 12:43] LABS: Hemoglobin 10.1 g/dL (11.5-15.4)
[2022-01-03 13:01] LABS: Magnesium 3.1 mg/dL (1.6-2.6); Phosphorous 2.4 mg/dL (2.7-4.5)
[2022-01-03 13:10] LABS: Calcium 7.8 mg/dL (8.6-10.3)
[2022-01-03] MEDS ORDERED: *HR* Propofol 200 MG/20 ML VIAL IVP ONE (13:45)
[2022-01-03] MEDS ORDERED: Lidocaine -MPF 2% 5 ML VIAL ONE (13:45)
[2022-01-03] MEDS ORDERED: *HR* EPINEPHrine 1 MG/10 ML SYRINGE INTRATRACH PRN (14:23)
[2022-01-03] MEDS: Ondansetron 4 MG/2 ML VIAL IVP PRN (14:50)
[2022-01-03] MEDS ORDERED: methocarbamoL 500 MG TABLET PO PRN (16:39)
[2022-01-03] MEDS: Pantoprazole 40 MG VIAL IVP SCH (17:44)
[2022-01-03] MEDS: hydrOXYzine pamoate 25 MG CAPSULE PO SCH (20:01)
[2022-01-03] MEDS ORDERED: *HR* LORazepam 0.5 MG TABLET PO ONE (22:09)
[2022-01-03 22:43] LABS: Hematocrit 30.8 % (35.3-44.9); Hemoglobin 10.3 g/dL (11.5-15.4)
[2022-01-04] MEDS: Pantoprazole 40 MG VIAL IVP SCH ×2 (06:20→17:41)
[2022-01-04 06:34] LABS: Immature Reticulocyte % 43.1 % (11.0-38.0); Retculocyte # 0.08 M/mcL (0.05-0.10); Reticulocyte % 2.4 % (1.6-2.8)
[2022-01-04 06:41] LABS: Bilirubin,Direct 0.1 mg/dL (0.0-0.2); Bilirubin,Indirect 0.3 mg/dL (0.0-1.0); Bilirubin,Total 0.4 mg/dL (0.3-1.0)
[2022-01-04 07:04] LABS: Basophils % 0.3 %; Eosinophils # 0.2 K/mcL (0.0-0.6); Eosinophils % 1.3 %; Hematocrit 32.4 % (35.3-44.9); Hemoglobin 10.6 g/dL (11.5-15.4); Immature Granulocytes % 0.7 % (0-4); Lymphocytes # 1.1 K/mcL (0.6-4.6); Lymphocytes % 9.2 %; Mean Corpuscular HGB Conc 32.7 g/dL (31.6-35.5); Mean Corpuscular Hemoglobin 29.9 pg (28.0-33.3); Mean Corpuscular Volume 91.3 fL (83.0-100.0); Mean Platelet Volume 9.5 fL (9.4-12.4); Monocytes # 0.6 K/mcL (0.0-1.3); Monocytes % 5.4 %; Neutrophils # 9.7 K/mcL (1.6-8.9); Nucleated Red Blood Cells 0.3 /100 WBC (0); Platelet Count 131 K/mcL (140-400); Red Blood Count 3.55 M/mcL (3.82-4.97); Red Cell Distribution Width 16.1 % (11.5-14.5); Segmented Neutrophils % 83.1 %; White Blood Count 11.6 K/mcL (4.3-11.1)
[2022-01-04 07:24] LABS: Folate > 22.3 ng/mL (3.0-16.0); Vitamin B12 368 pg/mL (250-1100)
[2022-01-04] MEDS: Folic Acid 1 MG TABLET PO SCH (07:55)
[2022-01-04] MEDS: hydrOXYzine pamoate 25 MG CAPSULE PO SCH ×3 (07:55→21:28)
[2022-01-04] MEDS: Acetaminophen 325 MG TABLET PO PRN (10:33)
[2022-01-04] MEDS ORDERED: E-Z-HD (BARIUM SULF) SUSPENSION PO ONE (13:18)
[2022-01-04] MEDS ORDERED: E-Z-PAQUE (BARIUM SULF) SUSP 1 BOTTLE PO ONE (13:18)
[2022-01-04] MEDS: GuaiFENesin Liq 200 MG/10 ML UDC PO PRN (20:26)
[2022-01-05] MEDS: GuaiFENesin Liq 200 MG/10 ML UDC PO PRN ×2 (05:03→16:25)
[2022-01-05] MEDS: Pantoprazole 40 MG VIAL IVP SCH ×2 (05:06→17:04)
[2022-01-05 06:08] LABS: Basophils % 0.3 %; Eosinophils # 0.2 K/mcL (0.0-0.6); Eosinophils % 1.9 %; Hematocrit 32.9 % (35.3-44.9); Hemoglobin 10.9 g/dL (11.5-15.4); Immature Granulocytes % 0.7 % (0-4); Lymphocytes % 8.7 %; Mean Corpuscular HGB Conc 33.1 g/dL (31.6-35.5); Mean Corpuscular Volume 90.6 fL (83.0-100.0); Mean Platelet Volume 9.8 fL (9.4-12.4); Monocytes # 0.3 K/mcL (0.0-1.3); Monocytes % 2.9 %; Neutrophils # 10.1 K/mcL (1.6-8.9); Platelet Count 139 K/mcL (140-400); Red Blood Count 3.63 M/mcL (3.82-4.97); Segmented Neutrophils % 85.5 %; White Blood Count 11.8 K/mcL (4.3-11.1)
[2022-01-05 06:31] LABS: Calcium 7.6 mg/dL (8.6-10.3); Potassium 3.4 mEq/L (3.5-5.1)
[2022-01-05] MEDS ORDERED: Potassium Chloride Elixir 20 MEQ/15 ML UDC PO ONE (07:13)
[2022-01-05] MEDS: Acetaminophen 325 MG TABLET PO PRN (10:20)
[2022-01-05] MEDS: hydrOXYzine pamoate 25 MG CAPSULE PO SCH ×3 (10:20→20:29)
[2022-01-05] MEDS: Folic Acid 1 MG TABLET PO SCH (10:20)
[2022-01-05] MEDS: Ondansetron 4 MG/2 ML VIAL IVP PRN (10:21)
[2022-01-05 11:55] LABS: Adenovirus Not Detected (Not Detect); Coronavirus 229E Not Detected (Not Detect); Coronavirus HKU1 Not Detected (Not Detect); Coronavirus NL63 Not Detected (Not Detect); Coronavirus OC43 Not Detected (Not Detect); Human Metapneumovirus Not Detected (Not Detect); Human Rhinovirus/Enterovirus Not Detected (Not Detect); SARS-CoV-2 Not Detected (Not Detect)
[2022-01-05 11:56] LABS: Bordetella Pertussis Not Detected (Not Detect); Chlamydophila pneumoniae Not Detected (Not Detect); Influenza B Not Detected (Not Detect); Mycoplasma pneumoniae Not Detected (Not Detect); Parainfluenza Virus 1 Not Detected (Not Detect); Parainfluenza Virus 2 Not Detected (Not Detect); Parainfluenza Virus 3 Not Detected (Not Detect); Parainfluenza Virus 4 Not Detected (Not Detect); Respiratory Syncytial Virus Not Detected (Not Detect)
[2022-01-05 11:58] LABS: Influenza A Subtype 2009 H1 Not Detected (Not Detect)
[2022-01-06] MEDS: GuaiFENesin Liq 200 MG/10 ML UDC PO PRN ×2 (01:59→09:47)
[2022-01-06] MEDS: Acetaminophen 325 MG TABLET PO PRN (01:59)
[2022-01-06] MEDS: Pantoprazole 40 MG VIAL IVP SCH (05:23)
[2022-01-06 05:44] LABS: Basophils % 0.4 %; Eosinophils # 0.1 K/mcL (0.0-0.6); Eosinophils % 0.7 %; Hematocrit 29.3 % (35.3-44.9); Hemoglobin 10.1 g/dL (11.5-15.4); Immature Granulocytes % 0.9 % (0-4); Lymphocytes # 0.9 K/mcL (0.6-4.6); Lymphocytes % 10.3 %; Mean Corpuscular HGB Conc 34.5 g/dL (31.6-35.5); Mean Corpuscular Hemoglobin 30.5 pg (28.0-33.3); Mean Corpuscular Volume 88.5 fL (83.0-100.0); Mean Platelet Volume 10.1 fL (9.4-12.4); Monocytes # 0.5 K/mcL (0.0-1.3); Monocytes % 5.7 %; Platelet Count 127 K/mcL (140-400); Red Blood Count 3.31 M/mcL (3.82-4.97); Red Cell Distribution Width 15.7 % (11.5-14.5); White Blood Count 8.5 K/mcL (4.3-11.1)
[2022-01-06 06:02] LABS: BUN/Creatinine Ratio 17 (6-26); Blood Urea Nitrogen 17 mg/dL (8-23); Calcium 7.3 mg/dL (8.6-10.3); Carbon Dioxide 18 mEq/L (23-29); Chloride 107 mEq/L (98-107); Glucose 65 mg/dL (70-105); Osmolality,Calculated 276 (280-300); Potassium 3.6 mEq/L (3.5-5.1); Sodium 133 mEq/L (136-145); eGFR For African Americans > 60 (> 60); eGFR For Non-African Americans 55 (> 60)
[2022-01-06] MEDS: Folic Acid 1 MG TABLET PO SCH (09:41)
[2022-01-06] MEDS: hydrOXYzine pamoate 25 MG CAPSULE PO SCH (09:41)
[2022-01-06 11:58] VITALS: PULSE 72; TEMP 98; O2SAT 93
[2022-01-06 11:59] VITALS: BP 107/70
== END 2022-01-06 14:36 | DRG 377 ==
LOC: ICNU 18:55 → EMEROOARM 18:55 → ICNU 01-03 01:04 → SUATTDRO 01-03 01:50 → ICNU 01-03 03:14 → 2ANU 01-03 11:04
PROVIDERS: ADMIT Internal Medicine; ATTEND Internal Medicine

== ENCOUNTER 2022-02-18 09:41 | Inpatient (IN) ==
[2022-02-18] MEDS ORDERED: 0.9 % Sodium Chloride 1,000 ML IVC ONE (09:51)
[2022-02-18 11:03] LABS: Basophils % 0.7 %; Eosinophils # 0.2 K/mcL (0.0-0.6); Eosinophils % 3.2 %; Hematocrit 30.2 % (35.3-44.9); Hemoglobin 9.5 g/dL (11.5-15.4); Immature Granulocytes % 1.3 % (0-4); Lymphocytes # 1.4 K/mcL (0.6-4.6); Lymphocytes % 22.9 %; Mean Corpuscular HGB Conc 31.5 g/dL (31.6-35.5); Mean Corpuscular Hemoglobin 29.6 pg (28.0-33.3); Mean Corpuscular Volume 94.1 fL (83.0-100.0); Mean Platelet Volume 10.2 fL (9.4-12.4); Monocytes # 0.5 K/mcL (0.0-1.3); Monocytes % 9.1 %; Neutrophils # 3.7 K/mcL (1.6-8.9); Platelet Count 177 K/mcL (140-400); Red Blood Count 3.21 M/mcL (3.82-4.97); Red Cell Distribution Width 17.3 % (11.5-14.5); Segmented Neutrophils % 62.8 %; White Blood Count 5.9 K/mcL (4.3-11.1)
[2022-02-18 11:27] LABS: Amorphous Sediment,Urine Few per hpf (None-Few); Bacteria,Urine Few per hpf (None-Few); Bilirubin,Urine Negative (Negative); Blood,Urine Moderate (Negative); Clarity,Urine Turbid (Clear); Color,Urine Yellow (Yellow); Glucose,Urine (UA) Normal (Normal); Ketones,Urine Negative (Negative); Leukocyte Esterase,Urine Large (Negative); Mucus,Urine Few per lpf (None-Few); Nitrite,Urine Positive (Negative); Protein,Urine 50 mg/dL (Neg-Trace); RBC,Urine 15-30 per hpf (0-3); Specific Gravity,Urine 1.017 (1.010-1.025); Squamous Epithelial Cell,Urine Few per hpf (None-Few); Urobilinogen,Urine Normal (Normal); WBC,Urine TNTC per hpf (0-3)
[2022-02-18 11:34] LABS: Troponin I < 0.03 ng/mL (< 0.04)
[2022-02-18 11:52] LABS: Alanine Aminotransferase 15 Units/L (7-52); Albumin 1.5 g/dL (3.5-5.7); Albumin/Globulin Ratio 0.5 (1.1-2.2); Alkaline Phosphatase 222 Units/L (34-104); Aspartate Amino Transferase 26 Units/L (13-39); BUN/Creatinine Ratio 22 (6-26); Bilirubin,Indirect 0.4 mg/dL (0.0-1.0); Bilirubin,Total 0.4 mg/dL (0.3-1.0); Blood Urea Nitrogen 25 mg/dL (8-23); Calcium 7.2 mg/dL (8.6-10.3); Carbon Dioxide 24 mEq/L (23-29); Chloride 113 mEq/L (98-107); Ethanol < 10 mg/dL (Less than 10); Globulin 3.1 g/dL (2.4-3.5); Glucose 118 mg/dL (70-105); Osmolality,Calculated 299 (280-300); Potassium 5.1 mEq/L (3.5-5.1); Sodium 142 mEq/L (136-145); Thyroid Stimulating Hormone 21.087 mcIU/mL (0.340-5.600); Total Protein 4.6 g/dL (6.4-8.9); eGFR For African Americans 58 (> 60); eGFR For Non-African Americans 48 (> 60)
[2022-02-18 12:10] LABS: Amphetamine Screen,Urine Negative ng/mL (Cutoff=1000); Barbiturate Screen,Urine Negative ng/mL (Cutoff=200); Benzodiazepines Screen,Urine Negative ng/mL (Cutoff=200); Cannabinoid Screen,Urine Negative ng/mL (Cutoff = 50); Cocaine Screen,Urine Negative ng/mL (Cutoff= 300); Opiate Screen,Urine Negative ng/mL (Cutoff=300); Phencyclidine Screen,Urine Negative ng/mL (Cutoff=25)
[2022-02-18] MEDS ORDERED: Cefepime HCl 2,000 MG in 0.9 % Sodium Chloride 10 ML IVP ONE (12:26)
[2022-02-18] MEDS ORDERED: Azithromycin 500 MG in 0.9 % Sodium Chloride 250 ML IVPB ONE (12:26)
[2022-02-18 12:27] LABS: Adenovirus Not Detected (Not Detect); Bordetella Pertussis Not Detected (Not Detect); Chlamydophila pneumoniae Not Detected (Not Detect); Coronavirus 229E Not Detected (Not Detect); Coronavirus HKU1 Not Detected (Not Detect); Coronavirus NL63 Not Detected (Not Detect); Coronavirus OC43 Not Detected (Not Detect); Human Metapneumovirus Not Detected (Not Detect); Human Rhinovirus/Enterovirus Not Detected (Not Detect); Influenza A Subtype 2009 H1 Not Detected (Not Detect); Influenza B Not Detected (Not Detect); Mycoplasma pneumoniae Not Detected (Not Detect); Parainfluenza Virus 1 Not Detected (Not Detect); Parainfluenza Virus 2 Not Detected (Not Detect); Parainfluenza Virus 3 Not Detected (Not Detect); Parainfluenza Virus 4 Not Detected (Not Detect); Respiratory Syncytial Virus Not Detected (Not Detect); SARS-CoV-2 Not Detected (Not Detect)
[2022-02-18] MEDS ORDERED: methocarbamoL 500 MG TABLET PO PRN (13:11)
[2022-02-18] MEDS ORDERED: Ondansetron 4 MG/2 ML VIAL IVP PRN (13:12)
[2022-02-18] MEDS ORDERED: Acetaminophen 325 MG TABLET PO PRN (13:12)
[2022-02-18] MEDS ORDERED: Naloxone 0.4 MG/ML INJ IVP PRN (13:12)
[2022-02-18] MEDS: Lactulose Oral Soln 20 GM/30 ML UDC PO SCH ×2 (17:31→20:51)
[2022-02-19] MEDS: Cefepime HCl 1,000 MG in 0.9 % Sodium Chloride 10 ML IVP SCH ×3 (00:26→23:32)
[2022-02-19 05:41] LABS: Basophils # 0.1 K/mcL (0.0-0.2); Basophils % 0.9 %; Eosinophils # 0.3 K/mcL (0.0-0.6); Eosinophils % 4.1 %; Hematocrit 29.4 % (35.3-44.9); Hemoglobin 9.2 g/dL (11.5-15.4); Immature Granulocytes % 1.4 % (0-4); Lymphocytes # 1.6 K/mcL (0.6-4.6); Lymphocytes % 24.4 %; Mean Corpuscular HGB Conc 31.3 g/dL (31.6-35.5); Mean Corpuscular Hemoglobin 29.6 pg (28.0-33.3); Mean Corpuscular Volume 94.5 fL (83.0-100.0); Mean Platelet Volume 10.2 fL (9.4-12.4); Monocytes # 0.5 K/mcL (0.0-1.3); Monocytes % 8.1 %; Platelet Count 195 K/mcL (140-400); Red Blood Count 3.11 M/mcL (3.82-4.97); Red Cell Distribution Width 17.8 % (11.5-14.5); Segmented Neutrophils % 61.1 %; White Blood Count 6.6 K/mcL (4.3-11.1)
[2022-02-19 06:07] LABS: Alanine Aminotransferase 14 Units/L (7-52); Albumin 1.5 g/dL (3.5-5.7); Albumin/Globulin Ratio 0.5 (1.1-2.2); Alkaline Phosphatase 184 Units/L (34-104); Aspartate Amino Transferase 28 Units/L (13-39); BUN/Creatinine Ratio 23 (6-26); Bilirubin,Total 0.4 mg/dL (0.3-1.0); Blood Urea Nitrogen 24 mg/dL (8-23); Calcium 7.1 mg/dL (8.6-10.3); Carbon Dioxide 24 mEq/L (23-29); Chloride 117 mEq/L (98-107); Globulin 2.9 g/dL (2.4-3.5); Glucose 71 mg/dL (70-105); Magnesium 1.3 mg/dL (1.6-2.6); Osmolality,Calculated 305 (280-300); Phosphorous 3.3 mg/dL (2.7-4.5); Sodium 146 mEq/L (136-145); Total Protein 4.4 g/dL (6.4-8.9); Troponin I < 0.03 ng/mL (< 0.04); eGFR For African Americans > 60 (> 60); eGFR For Non-African Americans 52 (> 60)
[2022-02-19 06:24] LABS: Triiodothyronine (T3) Free 1.92 pg/mL (2.50-3.90)
[2022-02-19 06:28] LABS: Triiodothyronine (T3) Total 24 ng/dL (87-178)
[2022-02-19 06:29] LABS: Ferritin 913 ng/mL (10-120)
[2022-02-19] MEDS ORDERED: Folic Acid 1 MG TABLET PO SCH (09:00)
[2022-02-19] MEDS ORDERED: Aspirin Enteric Coated 81 MG Tablet PO SCH (09:00)
[2022-02-19] MEDS ORDERED: polyethylene glycoL 3350 17 GM POWD.PACK PO SCH (09:00)
[2022-02-19] MEDS: Lactulose Oral Soln 20 GM/30 ML UDC GTUBE SCH ×2 (10:13→20:08)
[2022-02-19] MEDS: polyethylene glycoL 3350 17 GM POWD.PACK GTUBE SCH (10:13)
[2022-02-19] MEDS: Folic Acid 1 MG TABLET GTUBE SCH (10:14)
[2022-02-19] MEDS: Aspirin 81 MG TAB.CHEW PO SCH (10:14)
[2022-02-19] MEDS: Metoclopramide 10 MG/10 ML UD.LIQ GTUBE SCH ×3 (12:34→23:31)
[2022-02-20] MEDS ORDERED: *HR* Dextrose 50 % in Water (Syg) 50 ML SYRINGE IVP PRN (00:29)
[2022-02-20] MEDS ORDERED: Dextrose 4 GM Chewable Tablets PO PRN ×2 (00:29)
[2022-02-20] MEDS ORDERED: D5% in Water 1,000 ML IVC PRN (00:29)
[2022-02-20] MEDS: Levothyroxine 25 MCG TABLET GTUBE SCH (05:26)
[2022-02-20] MEDS: Metoclopramide 10 MG/10 ML UD.LIQ GTUBE SCH ×4 (05:27→23:57)
[2022-02-20 05:48] LABS: Hematocrit 27.8 % (35.3-44.9); Hemoglobin 8.7 g/dL (11.5-15.4); Mean Corpuscular HGB Conc 31.3 g/dL (31.6-35.5); Mean Corpuscular Hemoglobin 29.8 pg (28.0-33.3); Mean Corpuscular Volume 95.2 fL (83.0-100.0); Mean Platelet Volume 10.1 fL (9.4-12.4); Platelet Count 200 K/mcL (140-400); Red Blood Count 2.92 M/mcL (3.82-4.97); Red Cell Distribution Width 17.7 % (11.5-14.5); White Blood Count 6.7 K/mcL (4.3-11.1)
[2022-02-20 06:11] LABS: BUN/Creatinine Ratio 24 (6-26); Blood Urea Nitrogen 24 mg/dL (8-23); Carbon Dioxide 22 mEq/L (23-29); Chloride 114 mEq/L (98-107); Glucose 108 mg/dL (70-105); Osmolality,Calculated 295 (280-300); Potassium 4.7 mEq/L (3.5-5.1); Sodium 140 mEq/L (136-145); eGFR For African Americans > 60 (> 60); eGFR For Non-African Americans 54 (> 60)
[2022-02-20] MEDS: Aspirin 81 MG TAB.CHEW PO SCH (07:54)
[2022-02-20] MEDS: Folic Acid 1 MG TABLET GTUBE SCH (07:54)
[2022-02-20] MEDS: polyethylene glycoL 3350 17 GM POWD.PACK GTUBE SCH (07:55)
[2022-02-20] MEDS: Lactulose Oral Soln 20 GM/30 ML UDC GTUBE SCH ×2 (11:02→19:19)
[2022-02-20] MEDS: Cefepime HCl 1,000 MG in 0.9 % Sodium Chloride 10 ML IVP SCH ×2 (11:49→23:57)
[2022-02-20] MEDS ORDERED: Acetaminophen IV 1,000 MG/100 ML BAG IVPB ONE (19:49)
[2022-02-21] MEDS: Levothyroxine 25 MCG TABLET GTUBE SCH (05:05)
[2022-02-21] MEDS: Metoclopramide 10 MG/10 ML UD.LIQ GTUBE SCH ×4 (05:05→23:51)
[2022-02-21 05:33] LABS: Hematocrit 28.4 % (35.3-44.9); Mean Corpuscular HGB Conc 31.7 g/dL (31.6-35.5); Mean Corpuscular Hemoglobin 29.4 pg (28.0-33.3); Mean Corpuscular Volume 92.8 fL (83.0-100.0); Mean Platelet Volume 10.2 fL (9.4-12.4); Platelet Count 223 K/mcL (140-400); Red Blood Count 3.06 M/mcL (3.82-4.97); Red Cell Distribution Width 18.2 % (11.5-14.5); White Blood Count 7.3 K/mcL (4.3-11.1)
[2022-02-21 05:47] LABS: BUN/Creatinine Ratio 23 (6-26); Blood Urea Nitrogen 23 mg/dL (8-23); Calcium 7.2 mg/dL (8.6-10.3); Carbon Dioxide 19 mEq/L (23-29); Chloride 116 mEq/L (98-107); Glucose 140 mg/dL (70-105); Osmolality,Calculated 300 (280-300); Potassium 4.6 mEq/L (3.5-5.1); Sodium 142 mEq/L (136-145); eGFR For African Americans > 60 (> 60); eGFR For Non-African Americans 54 (> 60)
[2022-02-21] MEDS: Lactulose Oral Soln 20 GM/30 ML UDC GTUBE SCH ×2 (08:04→19:54)
[2022-02-21] MEDS: Folic Acid 1 MG TABLET GTUBE SCH (08:04)
[2022-02-21] MEDS: Aspirin 81 MG TAB.CHEW PO SCH (08:05)
[2022-02-21] MEDS: polyethylene glycoL 3350 17 GM POWD.PACK GTUBE SCH (08:06)
[2022-02-21] MEDS: Cefepime HCl 1,000 MG in 0.9 % Sodium Chloride 10 ML IVP SCH ×2 (12:21→23:51)
[2022-02-22] MEDS: Metoclopramide 10 MG/10 ML UD.LIQ GTUBE SCH ×3 (04:35→17:52)
[2022-02-22] MEDS: Levothyroxine 25 MCG TABLET GTUBE SCH (04:53)
[2022-02-22 06:19] LABS: Hematocrit 31.3 % (35.3-44.9); Hemoglobin 9.8 g/dL (11.5-15.4); Mean Corpuscular HGB Conc 31.3 g/dL (31.6-35.5); Mean Corpuscular Hemoglobin 30.2 pg (28.0-33.3); Mean Corpuscular Volume 96.6 fL (83.0-100.0); Mean Platelet Volume 10.7 fL (9.4-12.4); Platelet Count 213 K/mcL (140-400); Red Blood Count 3.24 M/mcL (3.82-4.97); Red Cell Distribution Width 18.6 % (11.5-14.5)
[2022-02-22 06:55] LABS: Albumin 1.6 g/dL (3.5-5.7); BUN/Creatinine Ratio 21 (6-26); Blood Urea Nitrogen 23 mg/dL (8-23); Calcium 7.3 mg/dL (8.6-10.3); Carbon Dioxide 19 mEq/L (23-29); Chloride 115 mEq/L (98-107); Glucose 129 mg/dL (70-105); Osmolality,Calculated 299 (280-300); Potassium 4.6 mEq/L (3.5-5.1); Sodium 142 mEq/L (136-145); eGFR For African Americans > 60 (> 60); eGFR For Non-African Americans 50 (> 60)
[2022-02-22] MEDS: Aspirin 81 MG TAB.CHEW PO SCH (08:58)
[2022-02-22] MEDS: Folic Acid 1 MG TABLET GTUBE SCH (08:58)
[2022-02-22] MEDS: polyethylene glycoL 3350 17 GM POWD.PACK GTUBE SCH (08:58)
[2022-02-22] MEDS: Lactulose Oral Soln 20 GM/30 ML UDC GTUBE SCH ×2 (08:58→19:58)
[2022-02-22] MEDS: Cefepime HCl 1,000 MG in 0.9 % Sodium Chloride 10 ML IVP SCH (12:59)
[2022-02-22] MEDS: Magic Mouthwash 10 ML UD Cup PO SCH (18:37)
[2022-02-23] MEDS: Cefepime HCl 1,000 MG in 0.9 % Sodium Chloride 10 ML IVP SCH ×2 (00:16→11:59)
[2022-02-23] MEDS: Metoclopramide 10 MG/10 ML UD.LIQ GTUBE SCH ×4 (00:17→16:43)
[2022-02-23] MEDS: Levothyroxine 25 MCG TABLET GTUBE SCH (04:47)
[2022-02-23 05:57] LABS: Hematocrit 28.9 % (35.3-44.9); Hemoglobin 8.8 g/dL (11.5-15.4); Mean Corpuscular HGB Conc 30.4 g/dL (31.6-35.5); Mean Corpuscular Hemoglobin 29.7 pg (28.0-33.3); Mean Corpuscular Volume 97.6 fL (83.0-100.0); Mean Platelet Volume 10.6 fL (9.4-12.4); Platelet Count 237 K/mcL (140-400); Red Blood Count 2.96 M/mcL (3.82-4.97); Red Cell Distribution Width 18.8 % (11.5-14.5); White Blood Count 15.3 K/mcL (4.3-11.1)
[2022-02-23 06:14] LABS: BUN/Creatinine Ratio 26 (6-26); Blood Urea Nitrogen 28 mg/dL (8-23); Calcium 7.4 mg/dL (8.6-10.3); Carbon Dioxide 18 mEq/L (23-29); Chloride 117 mEq/L (98-107); Glucose 134 mg/dL (70-105); Osmolality,Calculated 303 (280-300); Potassium 4.6 mEq/L (3.5-5.1); Sodium 143 mEq/L (136-145); eGFR For African Americans > 60 (> 60); eGFR For Non-African Americans 51 (> 60)
[2022-02-23] MEDS: polyethylene glycoL 3350 17 GM POWD.PACK GTUBE SCH (07:49)
[2022-02-23] MEDS: Magic Mouthwash 10 ML UD Cup PO SCH ×3 (07:49→16:43)
[2022-02-23] MEDS: Lactulose Oral Soln 20 GM/30 ML UDC GTUBE SCH ×2 (07:49→20:38)
[2022-02-23] MEDS: Aspirin 81 MG TAB.CHEW PO SCH (07:50)
[2022-02-23] MEDS: Folic Acid 1 MG TABLET GTUBE SCH (07:50)
[2022-02-23] MEDS ORDERED: Isovue-370 500 ML BOTTLE IVP ONE (07:55)
[2022-02-23] MEDS: DAPTOmycin 400 MG in 0.9 % Sodium Chloride 100 ML IVPB SCH (11:58)
[2022-02-24] MEDS: Cefepime HCl 1,000 MG in 0.9 % Sodium Chloride 10 ML IVP SCH ×2 (01:07→13:45)
[2022-02-24] MEDS: Metoclopramide 10 MG/10 ML UD.LIQ GTUBE SCH ×4 (01:27→17:27)
[2022-02-24 04:12] LABS: Hematocrit 31.4 % (35.3-44.9); Hemoglobin 9.4 g/dL (11.5-15.4); Mean Corpuscular HGB Conc 29.9 g/dL (31.6-35.5); Mean Corpuscular Volume 100.3 fL (83.0-100.0); Mean Platelet Volume 10.7 fL (9.4-12.4); Platelet Count 281 K/mcL (140-400); Red Blood Count 3.13 M/mcL (3.82-4.97); Red Cell Distribution Width 19.7 % (11.5-14.5); White Blood Count 15.9 K/mcL (4.3-11.1)
[2022-02-24 04:19] LABS: BUN/Creatinine Ratio 28 (6-26); Blood Urea Nitrogen 31 mg/dL (8-23); Calcium 7.5 mg/dL (8.6-10.3); Carbon Dioxide 12 mEq/L (23-29); Chloride 118 mEq/L (98-107); Glucose 113 mg/dL (70-105); Osmolality,Calculated 305 (280-300); Potassium 4.8 mEq/L (3.5-5.1); Sodium 144 mEq/L (136-145); eGFR For African Americans > 60 (> 60); eGFR For Non-African Americans 50 (> 60)
[2022-02-24] MEDS ORDERED: Doxycycline 100 MG CAPSULE PO SCH (04:30)
[2022-02-24] MEDS: Levothyroxine 25 MCG TABLET GTUBE SCH (05:02)
[2022-02-24] MEDS ORDERED: 0.9 % Sodium Chloride 500 ML IVC ONE (07:55)
[2022-02-24] MEDS ORDERED: levoFLOXacin 750 MG TABLET PO SCH (09:00)
[2022-02-24] MEDS: Magic Mouthwash 10 ML UD Cup PO SCH ×3 (10:09→17:30)
[2022-02-24] MEDS: Lactulose Oral Soln 20 GM/30 ML UDC GTUBE SCH ×2 (10:23→19:55)
[2022-02-24] MEDS: Aspirin 81 MG TAB.CHEW PO SCH (10:23)
[2022-02-24] MEDS: Folic Acid 1 MG TABLET GTUBE SCH (10:24)
[2022-02-24] MEDS: polyethylene glycoL 3350 17 GM POWD.PACK GTUBE SCH (10:24)
[2022-02-24] MEDS: DAPTOmycin 400 MG in 0.9 % Sodium Chloride 100 ML IVPB SCH (13:45)
[2022-02-25] MEDS: Metoclopramide 10 MG/10 ML UD.LIQ GTUBE SCH ×5 (00:56→17:14)
[2022-02-25] MEDS: Cefepime HCl 1,000 MG in 0.9 % Sodium Chloride 10 ML IVP SCH ×2 (00:56→14:24)
[2022-02-25 01:02] LABS: Hematocrit 29.9 % (35.3-44.9); Hemoglobin 9.2 g/dL (11.5-15.4); Mean Corpuscular HGB Conc 30.8 g/dL (31.6-35.5); Mean Corpuscular Hemoglobin 30.8 pg (28.0-33.3); Mean Platelet Volume 10.5 fL (9.4-12.4); Platelet Count 276 K/mcL (140-400); Red Blood Count 2.99 M/mcL (3.82-4.97); Red Cell Distribution Width 20.3 % (11.5-14.5); White Blood Count 14.4 K/mcL (4.3-11.1)
[2022-02-25 01:22] LABS: Calcium 7.7 mg/dL (8.6-10.3); Potassium 4.1 mEq/L (3.5-5.1)
[2022-02-25] MEDS: Levothyroxine 25 MCG TABLET GTUBE SCH (06:24)
[2022-02-25] MEDS: Magic Mouthwash 10 ML UD Cup PO SCH ×3 (09:20→17:12)
[2022-02-25] MEDS: Folic Acid 1 MG TABLET GTUBE SCH (09:20)
[2022-02-25] MEDS: Lactulose Oral Soln 20 GM/30 ML UDC GTUBE SCH ×2 (09:20→20:56)
[2022-02-25] MEDS: polyethylene glycoL 3350 17 GM POWD.PACK GTUBE SCH (09:20)
[2022-02-25] MEDS: Aspirin 81 MG TAB.CHEW PO SCH (09:20)
[2022-02-25] MEDS: DAPTOmycin 400 MG in 0.9 % Sodium Chloride 100 ML IVPB SCH (12:13)
[2022-02-25] MEDS ORDERED: E-Z-PAQUE (BARIUM SULF) SUSP 1 BOTTLE PO ONE (19:46)
[2022-02-25] MEDS ORDERED: E-Z-HD (BARIUM SULF) SUSPENSION PO ONE (19:46)
[2022-02-26] MEDS: Cefepime HCl 1,000 MG in 0.9 % Sodium Chloride 10 ML IVP SCH (01:36)
[2022-02-26] MEDS: Metoclopramide 10 MG/10 ML UD.LIQ GTUBE SCH ×3 (01:36→10:19)
[2022-02-26] MEDS: Levothyroxine 25 MCG TABLET GTUBE SCH (06:12)
[2022-02-26 07:06] LABS: Calcium 7.8 mg/dL (8.6-10.3); Potassium 4.4 mEq/L (3.5-5.1)
[2022-02-26 07:09] LABS: Hematocrit 28.6 % (35.3-44.9); Hemoglobin 8.6 g/dL (11.5-15.4); Mean Corpuscular HGB Conc 30.1 g/dL (31.6-35.5); Mean Corpuscular Hemoglobin 30.9 pg (28.0-33.3); Mean Corpuscular Volume 102.9 fL (83.0-100.0); Mean Platelet Volume 10.8 fL (9.4-12.4); Platelet Count 262 K/mcL (140-400); Red Blood Count 2.78 M/mcL (3.82-4.97); Red Cell Distribution Width 20.4 % (11.5-14.5); White Blood Count 16.4 K/mcL (4.3-11.1)
[2022-02-26] MEDS: Lactulose Oral Soln 20 GM/30 ML UDC GTUBE SCH ×2 (10:18→20:10)
[2022-02-26] MEDS: Magic Mouthwash 10 ML UD Cup PO SCH ×4 (10:18→17:45)
[2022-02-26] MEDS: Aspirin 81 MG TAB.CHEW PO SCH (10:19)
[2022-02-26] MEDS: polyethylene glycoL 3350 17 GM POWD.PACK GTUBE SCH ×2 (10:19→11:08)
[2022-02-26] MEDS: Folic Acid 1 MG TABLET GTUBE SCH (10:19)
[2022-02-26] MEDS: DAPTOmycin 400 MG in 0.9 % Sodium Chloride 100 ML IVPB SCH (10:19)
[2022-02-26] MEDS: Cefepime HCl 2,000 MG in 0.9 % Sodium Chloride Mini Bag 100 ML IVPB SCH (20:06)
[2022-02-27 05:34] LABS: Hematocrit 28.8 % (35.3-44.9); Hemoglobin 8.7 g/dL (11.5-15.4); Mean Corpuscular HGB Conc 30.2 g/dL (31.6-35.5); Mean Corpuscular Hemoglobin 30.7 pg (28.0-33.3); Mean Corpuscular Volume 101.8 fL (83.0-100.0); Platelet Count 276 K/mcL (140-400); Red Blood Count 2.83 M/mcL (3.82-4.97); Red Cell Distribution Width 21.1 % (11.5-14.5)
[2022-02-27 05:36] LABS: Calcium 7.6 mg/dL (8.6-10.3)
[2022-02-27 06:00] LABS: Folate 18.5 ng/mL (3.0-16.0)
[2022-02-27] MEDS: Cefepime HCl 2,000 MG in 0.9 % Sodium Chloride Mini Bag 100 ML IVPB SCH ×2 (06:03→18:11)
[2022-02-27] MEDS: Levothyroxine 25 MCG TABLET GTUBE SCH (06:06)
[2022-02-27] MEDS: Magic Mouthwash 10 ML UD Cup PO SCH ×3 (07:44→15:39)
[2022-02-27] MEDS: Aspirin 81 MG TAB.CHEW PO SCH (08:03)
[2022-02-27] MEDS: Folic Acid 1 MG TABLET GTUBE SCH (08:03)
[2022-02-27] MEDS: polyethylene glycoL 3350 17 GM POWD.PACK GTUBE SCH (08:04)
[2022-02-27] MEDS: Lactulose Oral Soln 20 GM/30 ML UDC GTUBE SCH ×2 (08:04→22:25)
[2022-02-27] MEDS ORDERED: Heparin 1,000 UNITS/500 mL 500 ML ONE (09:47)
[2022-02-27] MEDS: DAPTOmycin 400 MG in 0.9 % Sodium Chloride 100 ML IVPB SCH (12:00)
[2022-02-27] MEDS ORDERED: Perflutren Lipid Microsphere 1.3 ML in 0.9 % Sodium Chloride 8.7 ML IVP PRN (15:02)
[2022-02-27] MEDS ORDERED: Furosemide 40 MG in 0.9 % Sodium Chloride 50 ML IV ONE (15:03)
[2022-02-27] MEDS ORDERED: Furosemide 40 MG/4 ML VIAL IVP ONE (15:15)
[2022-02-27] MEDS ORDERED: 0.9 % Sodium Chloride 1,000 ML IV ONE ×2 (22:58→22:59)
[2022-02-28 01:36] LABS: Calcium 7.7 mg/dL (8.6-10.3); Potassium 4.2 mEq/L (3.5-5.1)
[2022-02-28 05:02] LABS: Hematocrit 27.2 % (35.3-44.9); Hemoglobin 8.1 g/dL (11.5-15.4); Mean Corpuscular HGB Conc 29.8 g/dL (31.6-35.5); Mean Corpuscular Hemoglobin 31.4 pg (28.0-33.3); Mean Corpuscular Volume 105.4 fL (83.0-100.0); Mean Platelet Volume 11.4 fL (9.4-12.4); Platelet Count 240 K/mcL (140-400); Red Blood Count 2.58 M/mcL (3.82-4.97); Red Cell Distribution Width 22.5 % (11.5-14.5); White Blood Count 11.8 K/mcL (4.3-11.1)
[2022-02-28] MEDS: Cefepime HCl 2,000 MG in 0.9 % Sodium Chloride Mini Bag 100 ML IVPB SCH (06:39)
[2022-02-28] MEDS: Levothyroxine 25 MCG TABLET GTUBE SCH (06:40)
[2022-02-28] MEDS ORDERED: Sodium Bicarbonate 150 MEQ in Water for inj. (sterile) 1,000 ML IVC SCH ×2 (09:07→12:45)
[2022-02-28] MEDS: polyethylene glycoL 3350 17 GM POWD.PACK GTUBE SCH (09:28)
[2022-02-28] MEDS: Lactulose Oral Soln 20 GM/30 ML UDC GTUBE SCH (09:28)
[2022-02-28] MEDS: Folic Acid 1 MG TABLET GTUBE SCH (09:28)
[2022-02-28] MEDS: Aspirin 81 MG TAB.CHEW PO SCH (09:29)
[2022-02-28] MEDS: Sodium Bicarbonate 50 MEQ in 0.45 % Sodium Chloride 1,000 ML IVC SCH ×2 (09:29→16:03)
[2022-02-28] MEDS: Magic Mouthwash 10 ML UD Cup PO SCH ×2 (10:18→11:43)
[2022-02-28] MEDS ORDERED: Ertapenem 1,000 MG in 0.9 % Sodium Chloride Mini Bag 100 ML IVPB SCH (12:00)
[2022-02-28] MEDS: DAPTOmycin 400 MG in 0.9 % Sodium Chloride 100 ML IVPB SCH (12:16)
[2022-02-28] MEDS ORDERED: Meropenem 1,000 MG in Water for inj. (sterile) 20 ML IVP SCH (14:00)
[2022-02-28] MEDS ORDERED: Naloxone 0.4 MG/ML INJ IVP PRN (14:00)
[2022-02-28] MEDS ORDERED: Perflutren Lipid Microsphere 1.3 ML in 0.9 % Sodium Chloride 8.7 ML IVP PRN (14:00)
[2022-02-28] MEDS ORDERED: Dextrose 4 GM Chewable Tablets PO PRN ×2 (14:00)
[2022-02-28] MEDS ORDERED: Meropenem 500 MG in Water for inj. (sterile) 10 ML IVP SCH (14:00)
[2022-02-28] MEDS ORDERED: D5% in Water 1,000 ML IVC PRN (14:00)
[2022-02-28] MEDS: Sodium Bicarbonate 150 MEQ in Water for inj. (sterile) 1,000 ML IVC SCH (15:00)
[2022-02-28] MEDS: Meropenem 500 MG in Water for inj. (sterile) 10 ML IVP SCH (16:44)
[2022-02-28] MEDS: Norepinephrine 4 MG/254 ML IV.SOLN IVC SCH ×2 (17:21→19:52)
[2022-02-28] MEDS ORDERED: Albumin 25% 25gram/100mL 25 GM/100 ML IV.SOLN IVPB ONE (20:03)
[2022-02-28 20:11] LABS: Hematocrit 28.8 % (35.3-44.9); Hemoglobin 8.7 g/dL (11.5-15.4); Mean Corpuscular HGB Conc 30.2 g/dL (31.6-35.5); Mean Corpuscular Hemoglobin 31.2 pg (28.0-33.3); Mean Corpuscular Volume 103.2 fL (83.0-100.0); Mean Platelet Volume 11.9 fL (9.4-12.4); Nucleated Red Blood Cells 4.3 /100 WBC (0); Platelet Count 307 K/mcL (140-400); Red Blood Count 2.79 M/mcL (3.82-4.97); Red Cell Distribution Width 23.5 % (11.5-14.5)
[2022-02-28 20:14] LABS: White Blood Count 17.9 K/mcL (4.3-11.1)
[2022-02-28 20:23] LABS: Albumin 1.5 g/dL (3.5-5.7); Albumin/Globulin Ratio 0.5 (1.1-2.2); Bilirubin,Total 0.4 mg/dL (0.3-1.0); Calcium 7.7 mg/dL (8.6-10.3); Globulin 2.9 g/dL (2.4-3.5); Magnesium 1.7 mg/dL (1.6-2.6); Potassium 4.2 mEq/L (3.5-5.1); Total Protein 4.4 g/dL (6.4-8.9); Uric Acid 7.4 mg/dL (2.3-7.6)
[2022-02-28 20:44] LABS: Anisocytosis 2+ (Not Present); Lymphocytes # 3.2 K/mcL (0.6-4.6); Monocytes # 1.8 K/mcL (0.0-1.3); Neutrophils # 12.9 K/mcL (1.6-8.9); Platelet Estimate Normal (Normal)
[2022-02-28 20:45] LABS: Hypochromasia Present (Not Present)
[2022-02-28] MEDS ORDERED: Lactulose Oral Soln 20 GM/30 ML UDC GTUBE SCH (21:00)
[2022-03-01] MEDS: Norepinephrine 4 MG/254 ML IV.SOLN IVC SCH ×4 (00:12→09:31)
[2022-03-01] MEDS: Sodium Bicarbonate 150 MEQ in Water for inj. (sterile) 1,000 ML IVC SCH ×3 (00:18→23:49)
[2022-03-01 01:07] LABS: Bilirubin,Urine Negative (Negative); Blood,Urine Large (Negative); Budding Yeast,Urine Few per hpf (None Seen); Clarity,Urine Turbid (Clear); Color,Urine Yellow (Yellow); Glucose,Urine (UA) Normal (Normal); Ketones,Urine 10 mg/dL (Negative); Leukocyte Esterase,Urine Large (Negative); Mucus,Urine Few per lpf (None-Few); Nitrite,Urine Negative (Negative); Protein,Urine 200 mg/dL (Neg-Trace); RBC,Urine 15-30 per hpf (0-3); Specific Gravity,Urine > 1.030 (1.010-1.025); Urobilinogen,Urine Normal (Normal); WBC,Urine TNTC per hpf (0-3)
[2022-03-01 02:29] LABS: Sodium, Urine 35.4 mEq/L
[2022-03-01 02:40] LABS: Protein/Creatinine Ratio,Urine 4.49 mg/mg (0.00-0.20)
[2022-03-01] MEDS: Meropenem 500 MG in Water for inj. (sterile) 10 ML IVP SCH ×2 (03:00→19:31)
[2022-03-01 03:50] LABS: Basophils % 0.1 %; Hematocrit 21.8 % (35.3-44.9); Immature Granulocytes % 4.1 % (0-4); Lymphocytes # 1.3 K/mcL (0.6-4.6); Lymphocytes % 9.1 %; Mean Corpuscular HGB Conc 30.3 g/dL (31.6-35.5); Mean Corpuscular Hemoglobin 31.3 pg (28.0-33.3); Mean Corpuscular Volume 103.3 fL (83.0-100.0); Mean Platelet Volume 11.7 fL (9.4-12.4); Monocytes # 0.6 K/mcL (0.0-1.3); Monocytes % 3.9 %; Neutrophils # 11.6 K/mcL (1.6-8.9); Nucleated Red Blood Cells 8.2 /100 WBC (0); Platelet Count 233 K/mcL (140-400); Red Blood Count 2.11 M/mcL (3.82-4.97); Red Cell Distribution Width 23.7 % (11.5-14.5); Segmented Neutrophils % 82.8 %
[2022-03-01 03:53] LABS: Hemoglobin 6.6 g/dL (11.5-15.4)
[2022-03-01 04:03] LABS: Calcium 7.3 mg/dL (8.6-10.3); Potassium 3.9 mEq/L (3.5-5.1)
[2022-03-01 04:07] LABS: Anisocytosis 3+ (Not Present); Macrocytosis Present (Not Present); Platelet Estimate Normal (Normal)
[2022-03-01] MEDS ORDERED: 0.9 % Sodium Chloride 250 ML IVC SCH (04:15)
[2022-03-01] MEDS: Levothyroxine 25 MCG TABLET GTUBE SCH (06:21)
[2022-03-01 07:18] LABS: ABG PCO2 < 13 mmHg (35-45); ABG PO2 64 mmHg (85-104)
[2022-03-01] MEDS: Albumin Human 5% 12.5 GM/250 ML IV.SOLN IVC SCH ×2 (08:01→11:26)
[2022-03-01] MEDS ORDERED: polyethylene glycoL 3350 17 GM POWD.PACK GTUBE SCH (09:00)
[2022-03-01] MEDS: Aspirin 81 MG TAB.CHEW GTUBE SCH (09:03)
[2022-03-01] MEDS: Folic Acid 1 MG TABLET GTUBE SCH (09:04)
[2022-03-01 16:37] LABS: Basophils # 0.1 K/mcL (0.0-0.2); Basophils % 0.4 %; Hematocrit 28.7 % (35.3-44.9); Hemoglobin 9.7 g/dL (11.5-15.4); Immature Granulocytes % 2.5 % (0-4); Lymphocytes # 0.9 K/mcL (0.6-4.6); Lymphocytes % 7.1 %; Mean Corpuscular HGB Conc 33.8 g/dL (31.6-35.5); Mean Corpuscular Hemoglobin 31.4 pg (28.0-33.3); Mean Corpuscular Volume 92.9 fL (83.0-100.0); Mean Platelet Volume 11.8 fL (9.4-12.4); Monocytes # 0.5 K/mcL (0.0-1.3); Monocytes % 4.2 %; Nucleated Red Blood Cells 6.3 /100 WBC (0); Platelet Count 133 K/mcL (140-400); Red Blood Count 3.09 M/mcL (3.82-4.97); Red Cell Distribution Width 18.1 % (11.5-14.5); Segmented Neutrophils % 85.8 %; White Blood Count 12.2 K/mcL (4.3-11.1)
[2022-03-01 16:38] LABS: Neutrophils # 10.5 K/mcL (1.6-8.9)
[2022-03-01] MEDS: Pantoprazole 40 MG VIAL IVP SCH (19:30)
[2022-03-02] MEDS: *HR* Dextrose 50 % in Water (Syg) 50 ML SYRINGE IVP PRN (01:38)
[2022-03-02] MEDS: Meropenem 500 MG in Water for inj. (sterile) 10 ML IVP SCH (03:43)
[2022-03-02 05:20] LABS: Basophils % 0.2 %; Eosinophils % 0.2 %; Hematocrit 26.6 % (35.3-44.9); Immature Granulocytes % 2.3 % (0-4); Lymphocytes # 1.3 K/mcL (0.6-4.6); Lymphocytes % 9.9 %; Mean Corpuscular HGB Conc 33.8 g/dL (31.6-35.5); Mean Corpuscular Hemoglobin 31.1 pg (28.0-33.3); Mean Platelet Volume 11.5 fL (9.4-12.4); Monocytes # 0.6 K/mcL (0.0-1.3); Monocytes % 4.5 %; Neutrophils # 10.6 K/mcL (1.6-8.9); Nucleated Red Blood Cells 3.4 /100 WBC (0); Platelet Count 108 K/mcL (140-400); Red Blood Count 2.89 M/mcL (3.82-4.97); Red Cell Distribution Width 18.7 % (11.5-14.5); Segmented Neutrophils % 82.9 %; White Blood Count 12.8 K/mcL (4.3-11.1)
[2022-03-02 05:38] LABS: Albumin 1.7 g/dL (3.5-5.7); Albumin/Globulin Ratio 1.1 (1.1-2.2); Bilirubin,Total 0.7 mg/dL (0.3-1.0); Calcium 6.5 mg/dL (8.6-10.3); Globulin 1.6 g/dL (2.4-3.5); Potassium 3.1 mEq/L (3.5-5.1); Total Protein 3.3 g/dL (6.4-8.9)
[2022-03-02] MEDS: Pantoprazole 40 MG VIAL IVP SCH ×2 (06:02→17:39)
[2022-03-02] MEDS: Levothyroxine 25 MCG TABLET GTUBE SCH (06:02)
[2022-03-02] MEDS: Folic Acid 1 MG TABLET GTUBE SCH (08:45)
[2022-03-02] MEDS: Aspirin 81 MG TAB.CHEW GTUBE SCH (08:46)
[2022-03-02] MEDS ORDERED: Ringers Solution, Lactated 1,000 ML IVC SCH (09:30)
[2022-03-02] MEDS: DAPTOmycin 400 MG in 0.9 % Sodium Chloride 100 ML IVPB SCH (11:16)
[2022-03-02] MEDS ORDERED: Potassium Chloride Elixir 20 MEQ/15 ML UDC GTUBE ONE (14:31)
[2022-03-02] MEDS: Meropenem 1,000 MG in 0.9 % Sodium Chloride 10 ML IVP SCH (16:19)
[2022-03-03] MEDS: Norepinephrine 4 MG/254 ML IV.SOLN IVC SCH ×2 (02:25→17:09)
[2022-03-03 04:50] LABS: Hematocrit 29.5 % (35.3-44.9); Hemoglobin 9.8 g/dL (11.5-15.4); Mean Corpuscular HGB Conc 33.2 g/dL (31.6-35.5); Mean Corpuscular Hemoglobin 30.9 pg (28.0-33.3); Mean Corpuscular Volume 93.1 fL (83.0-100.0); Mean Platelet Volume 12.1 fL (9.4-12.4); Platelet Count 103 K/mcL (140-400); Red Blood Count 3.17 M/mcL (3.82-4.97); Red Cell Distribution Width 19.6 % (11.5-14.5)
[2022-03-03 05:14] LABS: Calcium 6.7 mg/dL (8.6-10.3); Potassium 3.3 mEq/L (3.5-5.1)
[2022-03-03] MEDS: Meropenem 1,000 MG in 0.9 % Sodium Chloride 10 ML IVP SCH ×2 (05:14→15:53)
[2022-03-03] MEDS: Levothyroxine 25 MCG TABLET GTUBE SCH (05:14)
[2022-03-03] MEDS: Pantoprazole 40 MG VIAL IVP SCH ×2 (05:14→17:15)
[2022-03-03] MEDS: Folic Acid 1 MG TABLET GTUBE SCH (08:22)
[2022-03-03] MEDS: Aspirin 81 MG TAB.CHEW GTUBE SCH (08:22)
[2022-03-03] MEDS ORDERED: Potassium Chloride Elixir 20 MEQ/15 ML UDC GTUBE ONE (08:47)
[2022-03-03] MEDS: Albumin Human 5% 12.5 GM/250 ML IV.SOLN IVC SCH ×2 (09:47→13:08)
[2022-03-03] MEDS: *HR* Dextrose 50 % in Water (Syg) 50 ML SYRINGE IVP PRN (11:47)
[2022-03-04] MEDS: Meropenem 1,000 MG in 0.9 % Sodium Chloride 10 ML IVP SCH ×2 (03:13→15:27)
[2022-03-04 03:42] LABS: Basophils % 0.2 %; Lymphocytes % 9.4 %; Mean Corpuscular HGB Conc 33.2 g/dL (31.6-35.5)
[2022-03-04 03:44] LABS: Eosinophils # 0.1 K/mcL (0.0-0.6); Eosinophils % 0.5 %; Hematocrit 29.8 % (35.3-44.9); Hemoglobin 9.9 g/dL (11.5-15.4); Immature Granulocytes % 2.2 % (0-4); Immature Platelets 7.9 % (1.1-6.1); Lymphocytes # 1.2 K/mcL (0.6-4.6); Mean Corpuscular Hemoglobin 31.4 pg (28.0-33.3); Mean Corpuscular Volume 94.6 fL (83.0-100.0); Mean Platelet Volume 12.3 fL (9.4-12.4); Monocytes # 0.5 K/mcL (0.0-1.3); Monocytes % 4.4 %; Neutrophils # 10.3 K/mcL (1.6-8.9); Nucleated Red Blood Cells 0.3 /100 WBC (0); Red Blood Count 3.15 M/mcL (3.82-4.97); Red Cell Distribution Width 20.4 % (11.5-14.5); Segmented Neutrophils % 83.3 %; White Blood Count 12.3 K/mcL (4.3-11.1)
[2022-03-04 04:35] LABS: Potassium 3.6 mEq/L (3.5-5.1)
[2022-03-04 04:53] LABS: Platelet Count 71 K/mcL (140-400)
[2022-03-04 04:54] LABS: Hypochromasia Present (Not Present); Platelet Estimate Decreased (Normal)
[2022-03-04 04:55] LABS: Anisocytosis 2+ (Not Present)
[2022-03-04] MEDS: Pantoprazole 40 MG VIAL IVP SCH ×2 (05:28→17:32)
[2022-03-04] MEDS: Levothyroxine 25 MCG TABLET GTUBE SCH (05:28)
[2022-03-04] MEDS: Aspirin 81 MG TAB.CHEW GTUBE SCH (08:05)
[2022-03-04] MEDS: Folic Acid 1 MG TABLET GTUBE SCH (08:05)
[2022-03-04] MEDS: DAPTOmycin 400 MG in 0.9 % Sodium Chloride 100 ML IVPB SCH (11:25)
[2022-03-05] MEDS: Pantoprazole 40 MG VIAL IVP SCH ×2 (04:33→17:02)
[2022-03-05] MEDS: Meropenem 1,000 MG in 0.9 % Sodium Chloride 10 ML IVP SCH ×2 (04:33→16:13)
[2022-03-05] MEDS: Levothyroxine 25 MCG TABLET GTUBE SCH (04:34)
[2022-03-05 05:07] LABS: Basophils % 0.3 %; Eosinophils # 0.1 K/mcL (0.0-0.6); Eosinophils % 0.6 %; Hematocrit 33.3 % (35.3-44.9); Immature Granulocytes % 2.4 % (0-4); Immature Platelets 10.4 % (1.1-6.1); Lymphocytes # 1.2 K/mcL (0.6-4.6); Lymphocytes % 13.1 %; Mean Corpuscular Hemoglobin 30.9 pg (28.0-33.3); Mean Corpuscular Volume 93.5 fL (83.0-100.0); Mean Platelet Volume 12.4 fL (9.4-12.4); Monocytes # 0.4 K/mcL (0.0-1.3); Monocytes % 4.6 %; Nucleated Red Blood Cells 0.2 /100 WBC (0); Red Blood Count 3.56 M/mcL (3.82-4.97); Red Cell Distribution Width 20.9 % (11.5-14.5); White Blood Count 8.9 K/mcL (4.3-11.1)
[2022-03-05 05:08] LABS: Platelet Count 68 K/mcL (140-400)
[2022-03-05 05:18] LABS: Calcium 7.2 mg/dL (8.6-10.3); Magnesium 1.5 mg/dL (1.6-2.6); Potassium 3.1 mEq/L (3.5-5.1)
[2022-03-05] MEDS: Aspirin 81 MG TAB.CHEW GTUBE SCH (07:54)
[2022-03-05] MEDS: Folic Acid 1 MG TABLET GTUBE SCH (07:54)
[2022-03-06] MEDS: Meropenem 1,000 MG in 0.9 % Sodium Chloride 10 ML IVP SCH ×2 (03:33→16:09)
[2022-03-06] MEDS: Pantoprazole 40 MG VIAL IVP SCH ×2 (05:08→18:26)
[2022-03-06] MEDS: Levothyroxine 25 MCG TABLET GTUBE SCH (05:08)
[2022-03-06 05:26] LABS: Basophils % 0.3 %; Eosinophils # 0.3 K/mcL (0.0-0.6); Eosinophils % 3.8 %; Hematocrit 33.3 % (35.3-44.9); Immature Granulocytes % 1.8 % (0-4); Lymphocytes # 1.2 K/mcL (0.6-4.6); Lymphocytes % 18.2 %; Mean Corpuscular Hemoglobin 31.3 pg (28.0-33.3); Mean Corpuscular Volume 94.9 fL (83.0-100.0); Monocytes # 0.3 K/mcL (0.0-1.3); Monocytes % 3.8 %; Neutrophils # 4.9 K/mcL (1.6-8.9); Red Blood Count 3.51 M/mcL (3.82-4.97); Red Cell Distribution Width 21.3 % (11.5-14.5); Segmented Neutrophils % 72.1 %; White Blood Count 6.8 K/mcL (4.3-11.1)
[2022-03-06 05:29] LABS: Platelet Count 65 K/mcL (140-400)
[2022-03-06 05:34] LABS: Platelet Estimate Decreased (Normal)
[2022-03-06 05:45] LABS: Calcium 7.3 mg/dL (8.6-10.3); Potassium 3.1 mEq/L (3.5-5.1)
[2022-03-06] MEDS ORDERED: Potassium Chloride Elixir 20 MEQ/15 ML UDC GTUBE ONE (07:26)
[2022-03-06] MEDS: Aspirin 81 MG TAB.CHEW GTUBE SCH (08:39)
[2022-03-06] MEDS: Folic Acid 1 MG TABLET GTUBE SCH (08:39)
[2022-03-06] MEDS: DAPTOmycin 400 MG in 0.9 % Sodium Chloride 100 ML IVPB SCH (12:27)
[2022-03-06] MEDS ORDERED: Dextrose 4 GM Chewable Tablets PO PRN ×2 (16:43)
[2022-03-06] MEDS ORDERED: D5% in Water 1,000 ML IVC PRN (16:43)
[2022-03-06] MEDS ORDERED: *HR* Dextrose 50 % in Water (Syg) 50 ML SYRINGE IVP PRN (16:43)
[2022-03-06] MEDS ORDERED: Naloxone 0.4 MG/ML INJ IVP PRN (16:43)
[2022-03-06] MEDS ORDERED: 0.9 % Sodium Chloride 500 ML IVC ONE (22:44)
[2022-03-07] MEDS: Meropenem 1,000 MG in 0.9 % Sodium Chloride 10 ML IVP SCH ×2 (03:57→15:55)
[2022-03-07] MEDS ORDERED: Albumin 25% 25gram/100mL 25 GM/100 ML IV.SOLN IVPB ONE (04:07)
[2022-03-07 04:27] LABS: Red Cell Distribution Width 21.4 % (11.5-14.5)
[2022-03-07 04:29] LABS: Hematocrit 32.9 % (35.3-44.9); Hemoglobin 10.8 g/dL (11.5-15.4); Immature Platelets 14.3 % (1.1-6.1); Mean Corpuscular HGB Conc 32.8 g/dL (31.6-35.5); Mean Corpuscular Hemoglobin 31.6 pg (28.0-33.3); Mean Corpuscular Volume 96.2 fL (83.0-100.0); Mean Platelet Volume 13.7 fL (9.4-12.4); Monocytes # 0.3 K/mcL (0.0-1.3); Nucleated Red Blood Cells 0.4 /100 WBC (0); Red Blood Count 3.42 M/mcL (3.82-4.97)
[2022-03-07 04:34] LABS: Platelet Count 67 K/mcL (140-400)
[2022-03-07 04:46] LABS: VBG Ionized Calcium 1.09 mmol/L (1.15-1.35)
[2022-03-07 04:46] LABS: Albumin 1.8 g/dL (3.5-5.7); Albumin/Globulin Ratio 0.9 (1.1-2.2); Bilirubin,Total 0.6 mg/dL (0.3-1.0); Calcium 7.2 mg/dL (8.6-10.3); Phosphorous 1.7 mg/dL (2.7-4.5); Potassium 3.7 mEq/L (3.5-5.1); Total Protein 3.8 g/dL (6.4-8.9)
[2022-03-07 05:07] LABS: Lymphocytes # 2.2 K/mcL (0.6-4.6); Neutrophils # 5.4 K/mcL (1.6-8.9); Platelet Estimate Decreased (Normal)
[2022-03-07 05:30] LABS: Magnesium 1.9 mg/dL (1.6-2.6)
[2022-03-07] MEDS: Levothyroxine 25 MCG TABLET GTUBE SCH (05:39)
[2022-03-07] MEDS: Pantoprazole 40 MG VIAL IVP SCH ×2 (05:39→16:38)
[2022-03-07] MEDS: Aspirin 81 MG TAB.CHEW GTUBE SCH (07:49)
[2022-03-07] MEDS: Folic Acid 1 MG TABLET GTUBE SCH (07:50)
[2022-03-07] MEDS ORDERED: Acetaminophen IV 500 MG/50 ML BAG IVPB PRN (13:29)
[2022-03-07] MEDS ORDERED: Metoclopramide 10 MG/2 ML VIAL IVP PRN (14:15)
[2022-03-08] MEDS: Meropenem 1,000 MG in 0.9 % Sodium Chloride 10 ML IVP SCH (03:52)
[2022-03-08 04:39] LABS: Hematocrit 32.1 % (35.3-44.9); Hemoglobin 10.6 g/dL (11.5-15.4); Mean Corpuscular Hemoglobin 32.1 pg (28.0-33.3); Mean Corpuscular Volume 97.3 fL (83.0-100.0); Mean Platelet Volume 14.2 fL (9.4-12.4); Red Cell Distribution Width 21.7 % (11.5-14.5); White Blood Count 6.7 K/mcL (4.3-11.1)
[2022-03-08 04:40] LABS: Platelet Count 62 K/mcL (140-400)
[2022-03-08 04:53] LABS: Calcium 7.6 mg/dL (8.6-10.3); Potassium 3.7 mEq/L (3.5-5.1)
[2022-03-08] MEDS: Levothyroxine 25 MCG TABLET GTUBE SCH (05:47)
[2022-03-08] MEDS: Pantoprazole 40 MG VIAL IVP SCH ×2 (05:47→17:55)
[2022-03-08] MEDS: Aspirin 81 MG TAB.CHEW GTUBE SCH (08:28)
[2022-03-08] MEDS: Folic Acid 1 MG TABLET GTUBE SCH (08:28)
[2022-03-08] MEDS ORDERED: DAPTOmycin 400 MG in 0.9 % Sodium Chloride 100 ML IVPB SCH (11:00)
[2022-03-09 05:41] LABS: Hemoglobin 9.9 g/dL (11.5-15.4)
[2022-03-09 05:43] LABS: Hematocrit 30.9 % (35.3-44.9); Mean Corpuscular Hemoglobin 31.4 pg (28.0-33.3); Mean Corpuscular Volume 98.1 fL (83.0-100.0); Mean Platelet Volume 14.3 fL (9.4-12.4); Red Blood Count 3.15 M/mcL (3.82-4.97); White Blood Count 6.5 K/mcL (4.3-11.1)
[2022-03-09] MEDS: Pantoprazole 40 MG VIAL IVP SCH ×2 (05:57→18:02)
[2022-03-09] MEDS: Levothyroxine 25 MCG TABLET GTUBE SCH (05:57)
[2022-03-09 06:04] LABS: Calcium 7.3 mg/dL (8.6-10.3); Potassium 3.9 mEq/L (3.5-5.1)
[2022-03-09] MEDS: Folic Acid 1 MG TABLET GTUBE SCH (08:36)
[2022-03-09] MEDS: Aspirin 81 MG TAB.CHEW GTUBE SCH (08:36)
[2022-03-09 11:03] VITALS: BP 143/63; PULSE 85; TEMP 97.9; O2SAT 92
[2022-03-12] MEDS ORDERED: Cyanocobalamin (B-12) 1,000 MCG/ML VIAL IM SCH ×3 (09:00)
== END 2022-03-09 17:58 | DRG 698 ==
LOC: 3ANU 09:41 → EMEROOARM 09:41 → 3ANU 14:17 → SUATTDRO 02-19 13:26 → 2NNU 02-28 13:34
PROVIDERS: ADMIT Internal Medicine; ATTEND Family Medicine

== ENCOUNTER 2022-03-29 10:32 | Inpatient (IN) ==
[2022-03-29 12:23] LABS: Basophils # 0.2 K/mcL (0.0-0.2); Basophils % 1.4 %; Eosinophils # 0.2 K/mcL (0.0-0.6); Eosinophils % 1.5 %; Hemoglobin 9.6 g/dL (11.5-15.4); Lymphocytes # 1.9 K/mcL (0.6-4.6); Lymphocytes % 15.9 %; Mean Corpuscular Hemoglobin 32.9 pg (28.0-33.3); Mean Platelet Volume 9.3 fL (9.4-12.4); Monocytes # 1.2 K/mcL (0.0-1.3); Monocytes % 10.5 %; Neutrophils # 7.9 K/mcL (1.6-8.9); Platelet Count 349 K/mcL (140-400); Red Blood Count 2.92 M/mcL (3.82-4.97); Red Cell Distribution Width 19.5 % (11.5-14.5); Segmented Neutrophils % 66.7 %; White Blood Count 11.8 K/mcL (4.3-11.1)
[2022-03-29 12:34] LABS: Mean Corpuscular Volume 106.2 fL (83.0-100.0)
[2022-03-29 13:17] LABS: Bilirubin,Urine Negative (Negative); Blood,Urine Moderate (Negative); Clarity,Urine Cloudy (Clear); Color,Urine Yellow (Yellow); Glucose,Urine (UA) Normal (Normal); Ketones,Urine Negative (Negative); Leukocyte Esterase,Urine Large (Negative); Nitrite,Urine Negative (Negative); Protein,Urine >=300 mg/dL (Neg-Trace); Specific Gravity,Urine 1.025 (1.010-1.025); Urobilinogen,Urine Normal (Normal)
[2022-03-29 13:20] LABS: Bilirubin,Urine Negative (Negative); Blood,Urine Moderate (Negative); Clarity,Urine Turbid (Clear); Color,Urine Yellow (Yellow); Glucose,Urine (UA) Normal (Normal); Ketones,Urine Trace mg/dL (Negative); Leukocyte Esterase,Urine Small (Negative); Nitrite,Urine Negative (Negative); Protein,Urine 100 mg/dL (Neg-Trace); Specific Gravity,Urine >= 1.030 (1.010-1.025); Urobilinogen,Urine Normal (Normal)
[2022-03-29 13:21] LABS: Alanine Aminotransferase 24 Units/L (7-52); Albumin 1.6 g/dL (3.5-5.7); Albumin/Globulin Ratio 0.5 (1.1-2.2); Alkaline Phosphatase 172 Units/L (34-104); Aspartate Amino Transferase 37 Units/L (13-39); BUN/Creatinine Ratio 25 (6-26); Bilirubin,Total 0.5 mg/dL (0.3-1.0); Blood Urea Nitrogen 19 mg/dL (8-23); Calcium 7.2 mg/dL (8.6-10.3); Carbon Dioxide 14 mEq/L (23-29); Chloride 110 mEq/L (98-107); Globulin 3.1 g/dL (2.4-3.5); Glucose 32 mg/dL (70-105); Magnesium 1.4 mg/dL (1.6-2.6); Osmolality,Calculated 277 (280-300); Potassium 4.5 mEq/L (3.5-5.1); Sodium 134 mEq/L (136-145); Total Protein 4.7 g/dL (6.4-8.9); eGFR For African Americans > 60 (> 60); eGFR For Non-African Americans > 60 (> 60)
[2022-03-29 13:33] LABS: RBC,Urine 30-50 per hpf (0-3); WBC,Urine TNTC per hpf (0-3)
[2022-03-29 13:34] LABS: Bacteria,Urine Moderate per hpf (None-Few)
[2022-03-29 13:35] LABS: Amorphous Sediment,Urine Moderate per hpf (None-Few)
[2022-03-29 13:37] LABS: WBC,Urine TNTC per hpf (0-3)
[2022-03-29 13:38] LABS: Bacteria,Urine Many per hpf (None-Few)
[2022-03-29 13:39] LABS: Amorphous Sediment,Urine Moderate per hpf (None-Few); RBC,Urine 50-100 per hpf (0-3)
[2022-03-29] MEDS ORDERED: Cefdinir 300 MG CAPSULE PO ONE (14:25)
[2022-03-29] MEDS ORDERED: Magnesium Oxide 400 MG TABLET PO ONE (14:29)
[2022-03-29] MEDS ORDERED: Magnesium Sulfate 1 GM/102 ML PIGGYBACK IVPB ONE (15:59)
[2022-03-29] MEDS ORDERED: Dextrose Gel 15 GM/37.5 ML TUBE PO PRN ×2 (16:56)
[2022-03-29] MEDS ORDERED: *HR* Dextrose 50 % in Water (Syg) 50 ML SYRINGE IVP PRN (16:56)
[2022-03-29] MEDS ORDERED: Ondansetron 4 MG/2 ML VIAL IVP PRN (16:56)
[2022-03-29] MEDS ORDERED: D5% in Water 1,000 ML IVC PRN (16:56)
[2022-03-29] MEDS ORDERED: Naloxone 0.4 MG/ML INJ IVP PRN (16:56)
[2022-03-29] MEDS: D5% in 0.9% NACL 1,000 ML IVC SCH (17:06)
[2022-03-29] MEDS ORDERED: Meropenem 500 MG in 0.9 % Sodium Chloride Mini Bag 100 ML IVPB SCH (17:10)
[2022-03-29 17:36] LABS: C-Reactive Protein 172 mg/L (Less than 10)
[2022-03-29] MEDS ORDERED: *HR* Heparin 5,000 UNIT/ML VIAL SQ SCH (18:00)
[2022-03-29] MEDS ORDERED: DAPTOmycin 400 MG in 0.9 % Sodium Chloride 100 ML IVPB SCH (18:00)
[2022-03-29 19:55] LABS: Creatine Kinase 74 Units/L (30-223)
[2022-03-29] MEDS: DAPTOmycin 300 MG in 0.9 % Sodium Chloride 100 ML IVPB SCH (20:39)
[2022-03-29] MEDS: Ertapenem 1,000 MG in 0.9 % Sodium Chloride Mini Bag 100 ML IVPB SCH (21:16)
[2022-03-29 21:54] VITALS: O2SAT 100
[2022-03-29] MEDS: Acetaminophen 325 MG TABLET PO PRN (22:36)
[2022-03-30 05:20] LABS: Basophils # 0.1 K/mcL (0.0-0.2); Basophils % 0.7 %; Eosinophils # 0.2 K/mcL (0.0-0.6); Eosinophils % 1.7 %; Hematocrit 28.1 % (35.3-44.9); Hemoglobin 8.9 g/dL (11.5-15.4); Immature Granulocytes % 3.1 % (0-4); Lymphocytes # 1.7 K/mcL (0.6-4.6); Lymphocytes % 19.6 %; Mean Corpuscular HGB Conc 31.7 g/dL (31.6-35.5); Mean Corpuscular Hemoglobin 31.8 pg (28.0-33.3); Mean Corpuscular Volume 100.4 fL (83.0-100.0); Mean Platelet Volume 9.3 fL (9.4-12.4); Monocytes # 0.9 K/mcL (0.0-1.3); Monocytes % 9.6 %; Neutrophils # 5.8 K/mcL (1.6-8.9); Platelet Count 420 K/mcL (140-400); Red Cell Distribution Width 19.5 % (11.5-14.5); Segmented Neutrophils % 65.3 %; White Blood Count 8.8 K/mcL (4.3-11.1)
[2022-03-30 06:04] LABS: BUN/Creatinine Ratio 23 (6-26); Blood Urea Nitrogen 20 mg/dL (8-23); Calcium 7.2 mg/dL (8.6-10.3); Carbon Dioxide 19 mEq/L (23-29); Chloride 111 mEq/L (98-107); Glucose 90 mg/dL (70-105); Magnesium 1.9 mg/dL (1.6-2.6); Osmolality,Calculated 288 (280-300); Phosphorous 4.7 mg/dL (2.7-4.5); Potassium 4.6 mEq/L (3.5-5.1); Sodium 138 mEq/L (136-145); Thyroid Stimulating Hormone 44.641 mcIU/mL (0.340-5.600); eGFR For African Americans > 60 (> 60); eGFR For Non-African Americans > 60 (> 60)
[2022-03-30] MEDS ORDERED: methocarbamoL 500 MG TABLET PO PRN (08:24)
[2022-03-30] MEDS ORDERED: *HR* LORazepam 1 MG TABLET PO PRN (08:24)
[2022-03-30] MEDS: *HR* Heparin 5,000 UNIT/ML VIAL SQ SCH ×2 (08:42→20:41)
[2022-03-30] MEDS: D5% in 0.9% NACL 1,000 ML IVC SCH (11:52)
[2022-03-30] MEDS: Lactobacillus 1 EACH CAP.SPRINK PO SCH ×2 (12:29→20:41)
[2022-03-30] MEDS: Folic Acid 1 MG TABLET PO SCH (12:29)
[2022-03-30] MEDS: Aspirin Enteric Coated 81 MG Tablet PO SCH (12:29)
[2022-03-30] MEDS: AMINO ACIDS PO SCH (12:51)
[2022-03-30] MEDS: PROTEIN HYDROLYS PO SCH (12:51)
[2022-03-30] MEDS: Ertapenem 1,000 MG in 0.9 % Sodium Chloride Mini Bag 100 ML IVPB SCH (17:07)
[2022-03-30] MEDS: Acetaminophen 325 MG TABLET PO PRN (17:10)
[2022-03-30] MEDS: DAPTOmycin 300 MG in 0.9 % Sodium Chloride 100 ML IVPB SCH (17:47)
[2022-03-31] MEDS: D5% in 0.9% NACL 1,000 ML IVC SCH ×3 (02:29→16:07)
[2022-03-31 03:15] LABS: Hematocrit 24.1 % (35.3-44.9); Hemoglobin 7.7 g/dL (11.5-15.4); Mean Corpuscular Hemoglobin 32.2 pg (28.0-33.3); Mean Corpuscular Volume 100.8 fL (83.0-100.0); Mean Platelet Volume 9.3 fL (9.4-12.4); Platelet Count 368 K/mcL (140-400); Red Blood Count 2.39 M/mcL (3.82-4.97); Red Cell Distribution Width 19.2 % (11.5-14.5); White Blood Count 9.4 K/mcL (4.3-11.1)
[2022-03-31 03:34] LABS: BUN/Creatinine Ratio 20 (6-26); Blood Urea Nitrogen 17 mg/dL (8-23); Calcium 6.7 mg/dL (8.6-10.3); Carbon Dioxide 17 mEq/L (23-29); Chloride 113 mEq/L (98-107); Glucose 126 mg/dL (70-105); Osmolality,Calculated 285 (280-300); Potassium 3.6 mEq/L (3.5-5.1); Sodium 136 mEq/L (136-145); eGFR For African Americans > 60 (> 60); eGFR For Non-African Americans > 60 (> 60)
[2022-03-31 03:56] LABS: Lymphocytes # 2.1 K/mcL (0.6-4.6); Monocytes # 0.2 K/mcL (0.0-1.3); Neutrophils # 7.1 K/mcL (1.6-8.9)
[2022-03-31] MEDS: Acetaminophen 325 MG TABLET PO PRN ×2 (05:23→15:54)
[2022-03-31] MEDS ORDERED: Calcium Gluconate 1gm/50mL 1 GM/50 ML BAG IVPB ONE (07:47)
[2022-03-31] MEDS: *HR* Heparin 5,000 UNIT/ML VIAL SQ SCH ×2 (09:20→20:44)
[2022-03-31] MEDS: Folic Acid 1 MG TABLET PO SCH (09:20)
[2022-03-31] MEDS: Lactobacillus 1 EACH CAP.SPRINK PO SCH ×2 (09:20→20:44)
[2022-03-31] MEDS: Aspirin Enteric Coated 81 MG Tablet PO SCH (09:20)
[2022-03-31] MEDS: AMINO ACIDS PO SCH (09:23)
[2022-03-31] MEDS: PROTEIN HYDROLYS PO SCH (09:23)
[2022-03-31 11:30] LABS: Hematocrit 22.9 % (35.3-44.9); Hemoglobin 7.3 g/dL (11.5-15.4)
[2022-03-31] MEDS: Ertapenem 1,000 MG in 0.9 % Sodium Chloride Mini Bag 100 ML IVPB SCH (17:36)
[2022-03-31] MEDS: DAPTOmycin 300 MG in 0.9 % Sodium Chloride 100 ML IVPB SCH (17:36)
[2022-04-01 02:52] LABS: Basophils # 0.1 K/mcL (0.0-0.2); Eosinophils # 0.2 K/mcL (0.0-0.6); Hematocrit 25.9 % (35.3-44.9); Hemoglobin 8.2 g/dL (11.5-15.4); Immature Granulocytes % 1.7 % (0-4); Lymphocytes # 1.8 K/mcL (0.6-4.6); Lymphocytes % 15.6 %; Mean Corpuscular HGB Conc 31.7 g/dL (31.6-35.5); Mean Corpuscular Hemoglobin 32.5 pg (28.0-33.3); Mean Corpuscular Volume 102.8 fL (83.0-100.0); Mean Platelet Volume 9.4 fL (9.4-12.4); Monocytes # 0.7 K/mcL (0.0-1.3); Monocytes % 5.9 %; Neutrophils # 8.5 K/mcL (1.6-8.9); Platelet Count 338 K/mcL (140-400); Red Blood Count 2.52 M/mcL (3.82-4.97); Red Cell Distribution Width 19.4 % (11.5-14.5); Segmented Neutrophils % 73.8 %; White Blood Count 11.5 K/mcL (4.3-11.1)
[2022-04-01 03:13] LABS: BUN/Creatinine Ratio 19 (6-26); Blood Urea Nitrogen 16 mg/dL (8-23); Calcium 6.6 mg/dL (8.6-10.3); Carbon Dioxide 16 mEq/L (23-29); Chloride 116 mEq/L (98-107); Glucose 108 mg/dL (70-105); Osmolality,Calculated 288 (280-300); Potassium 3.6 mEq/L (3.5-5.1); Sodium 138 mEq/L (136-145); eGFR For African Americans > 60 (> 60); eGFR For Non-African Americans > 60 (> 60)
[2022-04-01] MEDS: Levothyroxine 25 MCG TABLET PO SCH (05:25)
[2022-04-01 08:10] LABS: INR 1.4; Prothrombin Time 16.1 Seconds (9.4-12.1)
[2022-04-01] MEDS: D5% in 0.9% NACL 1,000 ML IVC SCH (08:14)
[2022-04-01] MEDS: *HR* Heparin 5,000 UNIT/ML VIAL SQ SCH ×2 (10:02→21:46)
[2022-04-01] MEDS: Aspirin Enteric Coated 81 MG Tablet PO SCH (10:11)
[2022-04-01] MEDS: Lactobacillus 1 EACH CAP.SPRINK PO SCH ×2 (10:11→21:45)
[2022-04-01] MEDS: PROTEIN HYDROLYS PO SCH (10:12)
[2022-04-01] MEDS: Folic Acid 1 MG TABLET PO SCH (10:12)
[2022-04-01] MEDS: AMINO ACIDS PO SCH (10:12)
[2022-04-01] MEDS ORDERED: 0.9 % Sodium Chloride 500 ML ONE (11:29)
[2022-04-01] MEDS ORDERED: Calcium Gluconate 1gm/50mL 1 GM/50 ML BAG IVPB ONE (11:30)
[2022-04-01] MEDS ORDERED: Iopamidol - 300 50 ML VIAL IVP ONE (13:26)
[2022-04-01] MEDS: Meropenem 1,000 MG in 0.9 % Sodium Chloride Mini Bag 100 ML IVPB SCH (18:46)
[2022-04-01] MEDS: Acetaminophen 325 MG TABLET PO PRN (21:45)
[2022-04-02] MEDS: D5% in 0.9% NACL 1,000 ML IVC SCH ×2 (00:24→15:17)
[2022-04-02 02:19] LABS: Basophils # 0.1 K/mcL (0.0-0.2); Eosinophils # 0.4 K/mcL (0.0-0.6); Eosinophils % 4.3 %; Hematocrit 23.1 % (35.3-44.9); Hemoglobin 7.2 g/dL (11.5-15.4); Immature Granulocytes % 2.1 % (0-4); Lymphocytes # 1.7 K/mcL (0.6-4.6); Lymphocytes % 20.9 %; Mean Corpuscular HGB Conc 31.2 g/dL (31.6-35.5); Mean Corpuscular Hemoglobin 31.3 pg (28.0-33.3); Mean Corpuscular Volume 100.4 fL (83.0-100.0); Mean Platelet Volume 9.4 fL (9.4-12.4); Monocytes # 0.8 K/mcL (0.0-1.3); Monocytes % 10.4 %; Neutrophils # 4.9 K/mcL (1.6-8.9); Nucleated Red Blood Cells 0.2 /100 WBC (0); Platelet Count 309 K/mcL (140-400); Red Cell Distribution Width 19.2 % (11.5-14.5); Segmented Neutrophils % 61.3 %; White Blood Count 8.1 K/mcL (4.3-11.1)
[2022-04-02 02:30] LABS: BUN/Creatinine Ratio 17 (6-26); Blood Urea Nitrogen 15 mg/dL (8-23); Calcium 6.5 mg/dL (8.6-10.3); Carbon Dioxide 16 mEq/L (23-29); Chloride 119 mEq/L (98-107); Glucose 87 mg/dL (70-105); Osmolality,Calculated 288 (280-300); Potassium 3.5 mEq/L (3.5-5.1); Sodium 139 mEq/L (136-145); eGFR For African Americans > 60 (> 60); eGFR For Non-African Americans > 60 (> 60)
[2022-04-02] MEDS: Meropenem 1,000 MG in 0.9 % Sodium Chloride Mini Bag 100 ML IVPB SCH ×2 (06:07→18:05)
[2022-04-02] MEDS: Levothyroxine 25 MCG TABLET PO SCH (06:08)
[2022-04-02] MEDS: *HR* Heparin 5,000 UNIT/ML VIAL SQ SCH ×2 (09:58→22:49)
[2022-04-02] MEDS: Folic Acid 1 MG TABLET PO SCH (09:58)
[2022-04-02] MEDS: Lactobacillus 1 EACH CAP.SPRINK PO SCH ×2 (09:59→22:50)
[2022-04-02] MEDS: Aspirin Enteric Coated 81 MG Tablet PO SCH (09:59)
[2022-04-02] MEDS: Acetaminophen 325 MG TABLET PO PRN (22:50)
[2022-04-03] MEDS: Levothyroxine 25 MCG TABLET PO SCH (06:01)
[2022-04-03] MEDS: Meropenem 1,000 MG in 0.9 % Sodium Chloride Mini Bag 100 ML IVPB SCH (06:02)
[2022-04-03] MEDS: Insulin LISPRO 300 UNITS/3 ML VIAL SUBQ SCH ×2 (06:14→06:15)
[2022-04-03 07:57] VITALS: BP 95/75; PULSE 99; TEMP 97.4
[2022-04-03] MEDS: *HR* Heparin 5,000 UNIT/ML VIAL SQ SCH (08:46)
[2022-04-03] MEDS: Lactobacillus 1 EACH CAP.SPRINK PO SCH (08:47)
[2022-04-03] MEDS: Aspirin Enteric Coated 81 MG Tablet PO SCH ×2 (08:47→08:52)
[2022-04-03] MEDS: Folic Acid 1 MG TABLET PO SCH (08:48)
[2022-04-03] MEDS: D5% in 0.9% NACL 1,000 ML IVC SCH (08:50)
[2022-04-12] MEDS ORDERED: Cyanocobalamin (B-12) 1,000 MCG/ML VIAL IM SCH (09:00)
== END 2022-04-03 11:10 | DRG 698 ==
LOC: 3NENU 10:32 → EMEROOARM 10:32 → 3NENU 18:15 → SUATTDRO 03-31 11:29
PROVIDERS: ADMIT Internal Medicine; ATTEND Family Medicine

== ENCOUNTER 2022-04-09 12:01 | Inpatient (IN) ==
[2022-04-09] MEDS ORDERED: 0.9 % Sodium Chloride 1,000 ML ONE (12:20)
[2022-04-09] MEDS ORDERED: 0.9 % Sodium Chloride 1,000 ML IVC ONE ×2 (12:25→15:11)
[2022-04-09 13:25] LABS: White Blood Count 18.9 K/mcL (4.3-11.1)
[2022-04-09 13:26] LABS: Basophils # 0.1 K/mcL (0.0-0.2); Basophils % 0.3 %; Eosinophils # 0.1 K/mcL (0.0-0.6); Eosinophils % 0.5 %; Hematocrit 21.2 % (35.3-44.9); Hemoglobin 6.4 g/dL (11.5-15.4); Immature Granulocytes % 0.9 % (0-4); Lymphocytes # 2.3 K/mcL (0.6-4.6); Lymphocytes % 12.4 %; Mean Corpuscular HGB Conc 30.2 g/dL (31.6-35.5); Mean Corpuscular Hemoglobin 31.7 pg (28.0-33.3); Mean Platelet Volume 10.3 fL (9.4-12.4); Monocytes # 1.6 K/mcL (0.0-1.3); Monocytes % 8.5 %; Neutrophils # 14.6 K/mcL (1.6-8.9); Nucleated Red Blood Cells 0.1 /100 WBC (0); Platelet Count 163 K/mcL (140-400); Red Blood Count 2.02 M/mcL (3.82-4.97); Red Cell Distribution Width 18.6 % (11.5-14.5); Segmented Neutrophils % 77.4 %
[2022-04-09 13:32] LABS: INR 1.7; Prothrombin Time 18.9 Seconds (9.4-12.1)
[2022-04-09 13:35] LABS: Activated Partial Thrombo Time 44.6 Seconds (26.0-36.0)
[2022-04-09] MEDS ORDERED: Piperacillin/Tazobactam 3.375 GM in 0.9 % Sodium Chloride Mini Bag 100 ML IVPB ONE (14:00)
[2022-04-09 14:03] LABS: Alanine Aminotransferase 12 Units/L (7-52); Albumin < 1.5 g/dL (3.5-5.7); Alkaline Phosphatase 140 Units/L (34-104); Aspartate Amino Transferase 21 Units/L (13-39); BUN/Creatinine Ratio 23 (6-26); Bilirubin,Direct 0.2 mg/dL (0.0-0.2); Bilirubin,Indirect 0.2 mg/dL (0.0-1.0); Bilirubin,Total 0.4 mg/dL (0.3-1.0); Blood Urea Nitrogen 31 mg/dL (8-23); Calcium 6.5 mg/dL (8.6-10.3); Carbon Dioxide 13 mEq/L (23-29); Chloride 124 mEq/L (98-107); Glucose 113 mg/dL (70-105); Lipase 5 Units/L (11-82); Magnesium 1.6 mg/dL (1.6-2.6); Osmolality,Calculated 303 (280-300); Phosphorous 3.9 mg/dL (2.7-4.5); Potassium 4.2 mEq/L (3.5-5.1); Sodium 143 mEq/L (136-145); Total Protein 3.4 g/dL (6.4-8.9); Troponin I < 0.03 ng/mL (< 0.04); eGFR For African Americans 47 (> 60); eGFR For Non-African Americans 38 (> 60)
[2022-04-09 14:20] LABS: Bilirubin,Urine Small (Negative); Blood,Urine Large (Negative); Clarity,Urine Cloudy (Clear); Color,Urine Yellow (Yellow); Glucose,Urine (UA) Normal (Normal); Ketones,Urine 15 mg/dL (Negative); Leukocyte Esterase,Urine Large (Negative); Nitrite,Urine Negative (Negative); Protein,Urine 100 mg/dL (Neg-Trace); Specific Gravity,Urine 1.025 (1.010-1.025); Urobilinogen,Urine Normal (Normal)
[2022-04-09 14:32] LABS: Bacteria,Urine Moderate per hpf (None-Few); Squamous Epithelial Cell,Urine Few per hpf (None-Few); WBC,Urine TNTC per hpf (0-3)
[2022-04-09 14:33] LABS: Budding Yeast,Urine Few per hpf (None Seen)
[2022-04-09] MEDS ORDERED: levoFLOXacin 750 MG/150 ML 750 MG/150 ML BAG IVPB SCH (16:00)
[2022-04-09] MEDS ORDERED: Naloxone 0.4 MG/ML INJ IVP PRN (16:19)
[2022-04-09] MEDS ORDERED: Ipratropium/Albuterol Neb 3 ML IH PRN (16:27)
[2022-04-09] MEDS ORDERED: Ondansetron 4 MG/2 ML VIAL IVP PRN (16:27)
[2022-04-09 16:39] LABS: ABG Base Excess -13 mEq/L (-2 to 3); ABG HCO3 12 mEq/L (21-27); ABG Oxygen Saturation 95 % (95-98); ABG PCO2 24 mmHg (35-45); ABG PH 7.32 pH Units (7.32-7.45); ABG PO2 81 mmHg (85-104); ABG TCO2 13 mEq/L (20-26)
[2022-04-09] MEDS ORDERED: Vancomycin (wt based) 1,000 MG VIAL IVPB SCH (17:00)
[2022-04-09] MEDS: Ringers Solution, Lactated 1,000 ML IVC SCH (21:39)
[2022-04-09] MEDS ORDERED: Lidocaine -MPF 1% 5 ML AMPUL INFILT ONE (21:46)
[2022-04-09] MEDS: Piperacillin/Tazobactam 3.375 GM in 0.9 % Sodium Chloride Mini Bag 100 ML IVPB SCH (21:49)
[2022-04-09] MEDS: Norepinephrine 4 MG/254 ML IV.SOLN IVC SCH (22:14)
[2022-04-09 22:25] LABS: Calcium 6.1 mg/dL (8.6-10.3); Potassium 4.2 mEq/L (3.5-5.1)
[2022-04-10] MEDS: *HR* Heparin 5,000 UNIT/ML VIAL SQ SCH ×3 (02:16→16:14)
[2022-04-10] MEDS: Ringers Solution, Lactated 1,000 ML IVC SCH ×2 (02:40→13:28)
[2022-04-10 03:33] LABS: VBG Ionized Calcium 1.05 mmol/L (1.15-1.35)
[2022-04-10 04:09] LABS: Alanine Aminotransferase 14 Units/L (7-52); Albumin < 1.5 g/dL (3.5-5.7); Alkaline Phosphatase 161 Units/L (34-104); Aspartate Amino Transferase 26 Units/L (13-39); BUN/Creatinine Ratio 22 (6-26); Bilirubin,Direct 0.7 mg/dL (0.0-0.2); Bilirubin,Indirect 0.6 mg/dL (0.0-1.0); Bilirubin,Total 1.3 mg/dL (0.3-1.0); Blood Urea Nitrogen 29 mg/dL (8-23); Calcium 6.5 mg/dL (8.6-10.3); Carbon Dioxide 13 mEq/L (23-29); Chloride 124 mEq/L (98-107); Glucose 91 mg/dL (70-105); Magnesium 1.3 mg/dL (1.6-2.6); Osmolality,Calculated 303 (280-300); Phosphorous 3.5 mg/dL (2.7-4.5); Potassium 3.9 mEq/L (3.5-5.1); Sodium 144 mEq/L (136-145); eGFR For African Americans 49 (> 60); eGFR For Non-African Americans 40 (> 60)
[2022-04-10] MEDS: Piperacillin/Tazobactam 3.375 GM in 0.9 % Sodium Chloride Mini Bag 100 ML IVPB SCH ×3 (04:44→20:25)
[2022-04-10] MEDS: Norepinephrine 4 MG/254 ML IV.SOLN IVC SCH ×2 (05:53→08:41)
[2022-04-10] MEDS: Calcium Gluconate 1gm/50mL 1 GM/50 ML BAG IVPB SCH ×2 (06:06→08:22)
[2022-04-10 08:27] LABS: Eosinophils % 0.1 %
[2022-04-10 08:28] LABS: Basophils % 0.3 %; Eosinophils # 0.1 K/mcL (0.0-0.6); Hematocrit 40.6 % (35.3-44.9); Hemoglobin 13.2 g/dL (11.5-15.4); Immature Granulocytes % 2.1 % (0-4); Lymphocytes # 2.5 K/mcL (0.6-4.6); Lymphocytes % 5.5 %; Mean Corpuscular HGB Conc 32.5 g/dL (31.6-35.5); Mean Corpuscular Hemoglobin 30.6 pg (28.0-33.3); Mean Corpuscular Volume 94.2 fL (83.0-100.0); Mean Platelet Volume 10.2 fL (9.4-12.4); Monocytes # 2.9 K/mcL (0.0-1.3); Monocytes % 6.5 %; Neutrophils # 38.6 K/mcL (1.6-8.9); Platelet Count 222 K/mcL (140-400); Red Blood Count 4.31 M/mcL (3.82-4.97); Red Cell Distribution Width 19.1 % (11.5-14.5); Segmented Neutrophils % 85.5 %
[2022-04-10 08:30] LABS: Basophils # 0.1 K/mcL (0.0-0.2)
[2022-04-10 08:33] LABS: Platelet Estimate Normal (Normal); White Blood Count 45.1 K/mcL (4.3-11.1)
[2022-04-10] MEDS ORDERED: TOBRAMYCIN SULF IVPB ONE ×2 (08:42→10:00)
[2022-04-10] MEDS ORDERED: 0.9 % Sodium Chloride 1,000 ML ONE ×2 (08:58→09:35)
[2022-04-10] MEDS: Norepinephrine 32 MG/250 ML IV.SOLN IVC SCH (09:19)
[2022-04-10 09:39] LABS: Basophils % 0.4 %; Hemoglobin 13.4 g/dL (11.5-15.4); Lymphocytes % 4.7 %
[2022-04-10] MEDS: Hydrocortisone Sodium Succ 100 MG/2 ML VIAL IVP SCH ×2 (09:40→16:14)
[2022-04-10 09:41] LABS: Basophils # 0.2 K/mcL (0.0-0.2); Eosinophils % 0.1 %; Hematocrit 40.4 % (35.3-44.9); Immature Granulocytes % 2.4 % (0-4); Lymphocytes # 2.4 K/mcL (0.6-4.6); Mean Corpuscular HGB Conc 33.2 g/dL (31.6-35.5); Mean Corpuscular Hemoglobin 31.3 pg (28.0-33.3); Mean Corpuscular Volume 94.4 fL (83.0-100.0); Monocytes # 3.3 K/mcL (0.0-1.3); Monocytes % 6.6 %; Neutrophils # 43.1 K/mcL (1.6-8.9); Nucleated Red Blood Cells 0.1 /100 WBC (0); Platelet Count 216 K/mcL (140-400); Red Blood Count 4.28 M/mcL (3.82-4.97); Red Cell Distribution Width 19.2 % (11.5-14.5); Segmented Neutrophils % 85.8 %
[2022-04-10 09:46] LABS: Eosinophils # 0.1 K/mcL (0.0-0.6)
[2022-04-10 09:48] LABS: Platelet Estimate Normal (Normal); White Blood Count 50.2 K/mcL (4.3-11.1)
[2022-04-10] MEDS: DAPTOmycin 400 MG in 0.9 % Sodium Chloride 100 ML IVPB SCH (09:57)
[2022-04-10] MEDS ORDERED: SODIUM CHLORIDE 0.9% IVPB ONE (10:00)
[2022-04-10] MEDS: Phenylephrine 20 MG in 0.9 % Sodium Chloride 250 ML IVC SCH ×2 (12:04→20:02)
[2022-04-10] MEDS ORDERED: Vancomycin 500 MG in 0.9 % Sodium Chloride Mini Bag 100 ML IVPB SCH (15:00)
[2022-04-10] MEDS: Micafungin 100 MG in 0.9 % Sodium Chloride Mini Bag 100 ML IVPB SCH (20:26)
[2022-04-10] MEDS: Phenylephrine 100 MG in 0.9 % Sodium Chloride 250 ML IVC SCH (21:38)
[2022-04-11] MEDS: Hydrocortisone Sodium Succ 100 MG/2 ML VIAL IVP SCH ×3 (00:45→16:51)
[2022-04-11] MEDS: Phenylephrine 100 MG in 0.9 % Sodium Chloride 250 ML IVC SCH ×3 (03:41→17:49)
[2022-04-11] MEDS: Norepinephrine 32 MG/250 ML IV.SOLN IVC SCH ×2 (03:42→14:21)
[2022-04-11 04:16] LABS: Nucleated Red Blood Cells 0.3 /100 WBC (0)
[2022-04-11 04:17] LABS: Hematocrit 43.9 % (35.3-44.9); Mean Corpuscular HGB Conc 31.9 g/dL (31.6-35.5); Mean Corpuscular Hemoglobin 31.4 pg (28.0-33.3); Mean Corpuscular Volume 98.4 fL (83.0-100.0); Mean Platelet Volume 10.3 fL (9.4-12.4); Platelet Count 240 K/mcL (140-400); Red Blood Count 4.46 M/mcL (3.82-4.97); Red Cell Distribution Width 20.2 % (11.5-14.5)
[2022-04-11] MEDS: Piperacillin/Tazobactam 3.375 GM in 0.9 % Sodium Chloride Mini Bag 100 ML IVPB SCH ×2 (04:20→13:19)
[2022-04-11 04:31] LABS: Alanine Aminotransferase 14 Units/L (7-52); Albumin < 1.5 g/dL (3.5-5.7); Alkaline Phosphatase 154 Units/L (34-104); Aspartate Amino Transferase 51 Units/L (13-39); BUN/Creatinine Ratio 19 (6-26); Bilirubin,Direct 0.2 mg/dL (0.0-0.2); Bilirubin,Indirect 0.4 mg/dL (0.0-1.0); Bilirubin,Total 0.6 mg/dL (0.3-1.0); Blood Urea Nitrogen 29 mg/dL (8-23); Calcium 6.9 mg/dL (8.6-10.3); Carbon Dioxide 7 mEq/L (23-29); Chloride 126 mEq/L (98-107); Glucose 95 mg/dL (70-105); Magnesium 1.9 mg/dL (1.6-2.6); Osmolality,Calculated 306 (280-300); Phosphorous 5.9 mg/dL (2.7-4.5); Potassium 4.7 mEq/L (3.5-5.1); Sodium 145 mEq/L (136-145); Total Protein 4.4 g/dL (6.4-8.9); eGFR For African Americans 41 (> 60); eGFR For Non-African Americans 34 (> 60)
[2022-04-11 04:49] LABS: Basophils # 1.5 K/mcL (0.0-0.2); Lymphocytes # 4.5 K/mcL (0.6-4.6)
[2022-04-11 04:50] LABS: Platelet Estimate Normal (Normal)
[2022-04-11] MEDS: *HR* Heparin 5,000 UNIT/ML VIAL SQ SCH ×2 (05:19→17:01)
[2022-04-11] MEDS: Sodium Bicarbonate 150 MEQ in D5% in Water 1,000 ML IVC SCH ×3 (08:11→23:28)
[2022-04-12] MEDS: Norepinephrine 32 MG/250 ML IV.SOLN IVC SCH ×3 (00:03→20:54)
[2022-04-12] MEDS: Phenylephrine 100 MG in 0.9 % Sodium Chloride 250 ML IVC SCH ×3 (00:04→15:23)
[2022-04-12] MEDS: Hydrocortisone Sodium Succ 100 MG/2 ML VIAL IVP SCH ×3 (00:44→16:43)
[2022-04-12] MEDS: Micafungin 100 MG in 0.9 % Sodium Chloride Mini Bag 100 ML IVPB SCH ×2 (00:45→20:53)
[2022-04-12] MEDS: Piperacillin/Tazobactam 3.375 GM in 0.9 % Sodium Chloride Mini Bag 100 ML IVPB SCH ×2 (00:45→11:53)
[2022-04-12 04:45] LABS: Nucleated Red Blood Cells 1.2 /100 WBC (0); Red Blood Count 4.17 M/mcL (3.82-4.97)
[2022-04-12 04:47] LABS: Hematocrit 40.3 % (35.3-44.9); Hemoglobin 12.8 g/dL (11.5-15.4); Mean Corpuscular HGB Conc 31.8 g/dL (31.6-35.5); Mean Corpuscular Hemoglobin 30.7 pg (28.0-33.3); Mean Corpuscular Volume 96.6 fL (83.0-100.0); Mean Platelet Volume 11.6 fL (9.4-12.4); Platelet Count 120 K/mcL (140-400); Red Cell Distribution Width 20.1 % (11.5-14.5)
[2022-04-12] MEDS ORDERED: levETIRAcetam 1,000 MG in 0.9 % Sodium Chloride 100 ML IVPB ONE (04:51)
[2022-04-12 04:52] LABS: White Blood Count 72.1 K/mcL (4.3-11.1)
[2022-04-12] MEDS ORDERED: *HR* LORazepam 2 MG/ML VIAL ONE (04:58)
[2022-04-12 05:15] LABS: ABG Base Excess -13 mEq/L (-2 to 3); ABG HCO3 15 mEq/L (21-27); ABG Oxygen Saturation 51 % (95-98); ABG PCO2 43 mmHg (35-45); ABG PH 7.16 pH Units (7.32-7.45); ABG PO2 35 mmHg (85-104); ABG TCO2 17 mEq/L (20-26)
[2022-04-12] MEDS: *HR* Heparin 5,000 UNIT/ML VIAL SQ SCH ×2 (05:24→16:43)
[2022-04-12 05:27] LABS: Alanine Aminotransferase 19 Units/L (7-52); Albumin < 1.5 g/dL (3.5-5.7); Alkaline Phosphatase 105 Units/L (34-104); Aspartate Amino Transferase 90 Units/L (13-39); BUN/Creatinine Ratio 21 (6-26); Bilirubin,Direct 0.2 mg/dL (0.0-0.2); Bilirubin,Indirect 0.3 mg/dL (0.0-1.0); Bilirubin,Total 0.5 mg/dL (0.3-1.0); Blood Urea Nitrogen 32 mg/dL (8-23); Calcium 6.2 mg/dL (8.6-10.3); Carbon Dioxide 19 mEq/L (23-29); Chloride 118 mEq/L (98-107); Glucose 181 mg/dL (70-105); Magnesium 1.7 mg/dL (1.6-2.6); Osmolality,Calculated 319 (280-300); Phosphorous 6.3 mg/dL (2.7-4.5); Potassium 3.9 mEq/L (3.5-5.1); Sodium 149 mEq/L (136-145); Total Protein 3.4 g/dL (6.4-8.9); eGFR For African Americans 40 (> 60); eGFR For Non-African Americans 33 (> 60)
[2022-04-12 05:32] LABS: Anisocytosis 2+ (Not Present); Lymphocytes # 4.3 K/mcL (0.6-4.6); Monocytes # 1.4 K/mcL (0.0-1.3); Neutrophils # 66.3 K/mcL (1.6-8.9); Platelet Estimate Normal (Normal)
[2022-04-12] MEDS ORDERED: *HR* LORazepam 2 MG/ML VIAL IVP ONE (05:50)
[2022-04-12] MEDS: Sodium Bicarbonate 150 MEQ in D5% in Water 1,000 ML IVC SCH (07:03)
[2022-04-12] MEDS: DAPTOmycin 400 MG in 0.9 % Sodium Chloride 100 ML IVPB SCH (07:34)
[2022-04-12 09:20] LABS: VBG Ionized Calcium 0.93 mmol/L (1.15-1.35)
[2022-04-12] MEDS ORDERED: Calcium Chloride 1,000 MG in 0.9 % Sodium Chloride 100 ML IVPB ONE (09:30)
[2022-04-12] MEDS: Pantoprazole 40 MG VIAL IVP SCH (10:07)
[2022-04-12] MEDS ORDERED: Sodium Bicarbonate 150 MEQ in D5% in Water 1,000 ML IVC SCH ×2 (14:30→19:18)
[2022-04-13] MEDS: Piperacillin/Tazobactam 3.375 GM in 0.9 % Sodium Chloride Mini Bag 100 ML IVPB SCH ×2 (00:31→13:09)
[2022-04-13] MEDS: Hydrocortisone Sodium Succ 100 MG/2 ML VIAL IVP SCH ×3 (00:32→17:36)
[2022-04-13] MEDS: Phenylephrine 100 MG in 0.9 % Sodium Chloride 250 ML IVC SCH ×3 (03:17→19:46)
[2022-04-13 04:29] LABS: Calcium 6.6 mg/dL (8.6-10.3); Magnesium 1.9 mg/dL (1.6-2.6); Phosphorous 5.5 mg/dL (2.7-4.5); Potassium 3.8 mEq/L (3.5-5.1)
[2022-04-13 04:39] LABS: Basophils % 0.1 %
[2022-04-13 04:41] LABS: Basophils # 0.1 K/mcL (0.0-0.2); Hematocrit 42.8 % (35.3-44.9); Hemoglobin 13.7 g/dL (11.5-15.4); Immature Granulocytes % 4.8 % (0-4); Immature Platelets 19.4 % (1.1-6.1); Lymphocytes # 1.9 K/mcL (0.6-4.6); Lymphocytes % 4.1 %; Mean Corpuscular Hemoglobin 30.6 pg (28.0-33.3); Mean Corpuscular Volume 95.7 fL (83.0-100.0); Mean Platelet Volume 13.6 fL (9.4-12.4); Monocytes # 1.2 K/mcL (0.0-1.3); Monocytes % 2.7 %; Neutrophils # 40.7 K/mcL (1.6-8.9); Nucleated Red Blood Cells 2.2 /100 WBC (0); Platelet Count 37 K/mcL (140-400); Red Blood Count 4.47 M/mcL (3.82-4.97); Red Cell Distribution Width 20.2 % (11.5-14.5); Segmented Neutrophils % 88.3 %
[2022-04-13 04:42] LABS: White Blood Count 46.1 K/mcL (4.3-11.1)
[2022-04-13] MEDS: *HR* Heparin 5,000 UNIT/ML VIAL SQ SCH (05:15)
[2022-04-13] MEDS: Norepinephrine 32 MG/250 ML IV.SOLN IVC SCH ×2 (05:15→19:46)
[2022-04-13] MEDS: Pantoprazole 40 MG VIAL IVP SCH (07:53)
[2022-04-13] MEDS ORDERED: D10% in Water 500 ML IVC PRN (10:29)
[2022-04-13] MEDS: Sodium Bicarbonate 75 MEQ in D5% in Water 1,000 ML IVC SCH (11:34)
[2022-04-13 12:26] LABS: Hemoglobin 13.3 g/dL (11.5-15.4)
[2022-04-13 12:28] LABS: Hematocrit 42.2 % (35.3-44.9); Immature Platelets 23.7 % (1.1-6.1); Mean Corpuscular HGB Conc 31.5 g/dL (31.6-35.5); Mean Corpuscular Hemoglobin 30.4 pg (28.0-33.3); Mean Corpuscular Volume 96.3 fL (83.0-100.0); Nucleated Red Blood Cells 3.5 /100 WBC (0); Red Blood Count 4.38 M/mcL (3.82-4.97); Red Cell Distribution Width 20.3 % (11.5-14.5)
[2022-04-13 12:34] LABS: White Blood Count 38.7 K/mcL (4.3-11.1)
[2022-04-13 12:35] LABS: Platelet Count 28 K/mcL (140-400)
[2022-04-13 12:43] LABS: Calcium 6.7 mg/dL (8.6-10.3)
[2022-04-13 13:09] LABS: Lymphocytes # 0.8 K/mcL (0.6-4.6); Monocytes # 0.8 K/mcL (0.0-1.3); Neutrophils # 37.2 K/mcL (1.6-8.9); Platelet Estimate Marked Decrease (Normal)
[2022-04-13] MEDS ORDERED: Calcium Chloride 1,000 MG in 0.9 % Sodium Chloride 100 ML IVPB ONE (13:16)
[2022-04-13] MEDS ORDERED: Clinimix 5%-20% SOLUTION 2,000 ML with MVI, adult with vitamin K 10 ML, Sodium Phosph... IVC SCH (17:00)
[2022-04-13] MEDS ORDERED: 0.9 % Sodium Chloride 250 ML ONE (17:13)
[2022-04-13] MEDS: Micafungin 100 MG in 0.9 % Sodium Chloride Mini Bag 100 ML IVPB SCH (19:49)
[2022-04-14] MEDS: Hydrocortisone Sodium Succ 100 MG/2 ML VIAL IVP SCH ×3 (00:40→16:21)
[2022-04-14] MEDS: Piperacillin/Tazobactam 3.375 GM in 0.9 % Sodium Chloride Mini Bag 100 ML IVPB SCH ×2 (00:40→12:12)
[2022-04-14 04:01] LABS: Hemoglobin 12.1 g/dL (11.5-15.4)
[2022-04-14 04:03] LABS: Hematocrit 37.6 % (35.3-44.9); Immature Platelets 13.4 % (1.1-6.1); Mean Corpuscular HGB Conc 32.2 g/dL (31.6-35.5); Mean Corpuscular Hemoglobin 30.9 pg (28.0-33.3); Mean Corpuscular Volume 96.2 fL (83.0-100.0); Mean Platelet Volume 12.7 fL (9.4-12.4); Nucleated Red Blood Cells 5.7 /100 WBC (0); Red Blood Count 3.91 M/mcL (3.82-4.97); Red Cell Distribution Width 19.9 % (11.5-14.5)
[2022-04-14 04:10] LABS: INR 1.7; Prothrombin Time 19.2 Seconds (9.4-12.1)
[2022-04-14 04:12] LABS: Activated Partial Thrombo Time 49.9 Seconds (26.0-36.0)
[2022-04-14 04:15] LABS: VBG Ionized Calcium 0.99 mmol/L (1.15-1.35)
[2022-04-14 04:24] LABS: Platelet Count 59 K/mcL (140-400)
[2022-04-14 04:25] LABS: Alanine Aminotransferase 21 Units/L (7-52); Albumin < 1.5 g/dL (3.5-5.7); Alkaline Phosphatase 95 Units/L (34-104); Aspartate Amino Transferase 57 Units/L (13-39); BUN/Creatinine Ratio 21 (6-26); Blood Urea Nitrogen 41 mg/dL (8-23); Calcium 7.2 mg/dL (8.6-10.3); Carbon Dioxide 20 mEq/L (23-29); Chloride 112 mEq/L (98-107); Glucose 174 mg/dL (70-105); Magnesium 1.8 mg/dL (1.6-2.6); Osmolality,Calculated 320 (280-300); Phosphorous 5.4 mg/dL (2.7-4.5); Potassium 3.5 mEq/L (3.5-5.1); Sodium 148 mEq/L (136-145); Total Protein 3.5 g/dL (6.4-8.9); eGFR For African Americans 30 (> 60); eGFR For Non-African Americans 25 (> 60)
[2022-04-14 04:26] LABS: White Blood Count 35.2 K/mcL (4.3-11.1)
[2022-04-14 05:01] LABS: Eosinophils # 0.7 K/mcL (0.0-0.6); Lymphocytes # 3.5 K/mcL (0.6-4.6); Monocytes # 1.4 K/mcL (0.0-1.3); Neutrophils # 29.6 K/mcL (1.6-8.9); Platelet Estimate Decreased (Normal)
[2022-04-14] MEDS: Sodium Bicarbonate 75 MEQ in D5% in Water 1,000 ML IVC SCH (05:08)
[2022-04-14] MEDS ORDERED: Magnesium Sulfate 1 GM/102 ML PIGGYBACK IVPB ONE (07:22)
[2022-04-14] MEDS ORDERED: Calcium Chloride 1,000 MG in 0.9 % Sodium Chloride 100 ML IVPB ONE (07:23)
[2022-04-14] MEDS: Pantoprazole 40 MG VIAL IVP SCH (07:37)
[2022-04-14] MEDS: DAPTOmycin 400 MG in 0.9 % Sodium Chloride 100 ML IVPB SCH (07:39)
[2022-04-14] MEDS ORDERED: Furosemide 40 MG/4 ML VIAL IVP ONE (10:20)
[2022-04-14] MEDS: Norepinephrine 32 MG/250 ML IV.SOLN IVC SCH (10:34)
[2022-04-14] MEDS ORDERED: Clinimix 5%-20% SOLUTION 2,000 ML with MVI, adult with vitamin K 10 ML, Sodium Phosph... IVC SCH (17:00)
[2022-04-14] MEDS: Micafungin 100 MG in 0.9 % Sodium Chloride Mini Bag 100 ML IVPB SCH (19:47)
[2022-04-15] MEDS: Hydrocortisone Sodium Succ 100 MG/2 ML VIAL IVP SCH ×3 (01:23→17:05)
[2022-04-15] MEDS: Piperacillin/Tazobactam 3.375 GM in 0.9 % Sodium Chloride Mini Bag 100 ML IVPB SCH ×2 (01:24→13:24)
[2022-04-15] MEDS: Sodium Bicarbonate 75 MEQ in D5% in Water 1,000 ML IVC SCH (01:25)
[2022-04-15 04:05] LABS: VBG Ionized Calcium 1.13 mmol/L (1.15-1.35)
[2022-04-15 04:10] LABS: Basophils % 0.4 %; Eosinophils % 0.2 %; Immature Granulocytes % 3.9 % (0-4); Nucleated Red Blood Cells 3.9 /100 WBC (0)
[2022-04-15 04:11] LABS: Basophils # 0.1 K/mcL (0.0-0.2); Eosinophils # 0.1 K/mcL (0.0-0.6); Hematocrit 30.9 % (35.3-44.9); Hemoglobin 10.1 g/dL (11.5-15.4); Immature Platelets 24.3 % (1.1-6.1); Lymphocytes # 0.9 K/mcL (0.6-4.6); Lymphocytes % 3.6 %; Mean Corpuscular HGB Conc 32.7 g/dL (31.6-35.5); Mean Corpuscular Hemoglobin 31.5 pg (28.0-33.3); Mean Corpuscular Volume 96.3 fL (83.0-100.0); Monocytes # 0.7 K/mcL (0.0-1.3); Monocytes % 2.9 %; Neutrophils # 21.8 K/mcL (1.6-8.9); Red Blood Count 3.21 M/mcL (3.82-4.97); Red Cell Distribution Width 18.9 % (11.5-14.5); White Blood Count 24.5 K/mcL (4.3-11.1)
[2022-04-15 04:23] LABS: Magnesium 1.9 mg/dL (1.6-2.6); Phosphorous 3.9 mg/dL (2.7-4.5); Potassium 4.1 mEq/L (3.5-5.1)
[2022-04-15 04:47] LABS: Platelet Count 18 K/mcL (140-400)
[2022-04-15 04:48] LABS: Anisocytosis 1+ (Not Present); Hypochromasia Present (Not Present); Platelet Estimate Marked Decrease (Normal)
[2022-04-15] MEDS ORDERED: 0.9 % Sodium Chloride 250 ML IVC SCH (05:00)
[2022-04-15] MEDS: Pantoprazole 40 MG VIAL IVP SCH (09:47)
[2022-04-15] MEDS ORDERED: 0.9 % Sodium Chloride 250 ML ONE (10:16)
[2022-04-15] MEDS ORDERED: Clinimix E 5%-15% SOLUTION 2,000 ML with MVI, adult with vitamin K 10 ML IVC SCH (17:00)
[2022-04-16 01:10] LABS: Hemoglobin 9.1 g/dL (11.5-15.4); Mean Corpuscular Volume 100.8 fL (83.0-100.0)
[2022-04-16 01:12] LABS: Basophils # 0.1 K/mcL (0.0-0.2); Basophils % 0.3 %; Eosinophils % 0.1 %; Hematocrit 26.7 % (35.3-44.9); Immature Granulocytes % 4.5 % (0-4); Lymphocytes % 5.6 %; Mean Corpuscular HGB Conc 34.1 g/dL (31.6-35.5); Mean Corpuscular Hemoglobin 34.3 pg (28.0-33.3); Mean Platelet Volume 11.3 fL (9.4-12.4); Monocytes # 0.4 K/mcL (0.0-1.3); Monocytes % 2.2 %; Neutrophils # 15.2 K/mcL (1.6-8.9); Nucleated Red Blood Cells 4.6 /100 WBC (0); Red Blood Count 2.65 M/mcL (3.82-4.97); Red Cell Distribution Width 19.4 % (11.5-14.5); Segmented Neutrophils % 87.3 %; White Blood Count 17.4 K/mcL (4.3-11.1)
[2022-04-16 01:17] LABS: Platelet Count 20 K/mcL (140-400)
[2022-04-16] MEDS: Piperacillin/Tazobactam 3.375 GM in 0.9 % Sodium Chloride Mini Bag 100 ML IVPB SCH ×3 (01:24→23:38)
[2022-04-16] MEDS: Hydrocortisone Sodium Succ 100 MG/2 ML VIAL IVP SCH ×4 (01:24→23:44)
[2022-04-16 03:49] LABS: Basophils % 0.2 %; Eosinophils % 0.1 %; Hematocrit 24.6 % (35.3-44.9); Hemoglobin 8.4 g/dL (11.5-15.4); Lymphocytes % 6.9 %; Mean Corpuscular HGB Conc 34.1 g/dL (31.6-35.5); Mean Corpuscular Hemoglobin 34.6 pg (28.0-33.3); Mean Corpuscular Volume 101.2 fL (83.0-100.0); Nucleated Red Blood Cells 5.8 /100 WBC (0); Red Blood Count 2.43 M/mcL (3.82-4.97)
[2022-04-16 03:51] LABS: Immature Granulocytes % 5.1 % (0-4); Immature Platelets 14.1 % (1.1-6.1); Mean Platelet Volume 10.9 fL (9.4-12.4); Monocytes # 0.5 K/mcL (0.0-1.3); Monocytes % 3.1 %; Neutrophils # 12.6 K/mcL (1.6-8.9); Red Cell Distribution Width 19.4 % (11.5-14.5); Segmented Neutrophils % 84.6 %; White Blood Count 14.9 K/mcL (4.3-11.1)
[2022-04-16 03:52] LABS: VBG Ionized Calcium 1.12 mmol/L (1.15-1.35)
[2022-04-16 03:57] LABS: Platelet Count 15 K/mcL (140-400)
[2022-04-16 04:05] LABS: Alanine Aminotransferase 13 Units/L (7-52); Albumin < 1.5 g/dL (3.5-5.7); Alkaline Phosphatase 66 Units/L (34-104); Aspartate Amino Transferase 29 Units/L (13-39); BUN/Creatinine Ratio 29 (6-26); Bilirubin,Total 0.5 mg/dL (0.3-1.0); Blood Urea Nitrogen 61 mg/dL (8-23); Carbon Dioxide 21 mEq/L (23-29); Chloride 108 mEq/L (98-107); Glucose 228 mg/dL (70-105); Magnesium 1.8 mg/dL (1.6-2.6); Osmolality,Calculated 318 (280-300); Phosphorous 3.6 mg/dL (2.7-4.5); Sodium 142 mEq/L (136-145); Total Protein 2.9 g/dL (6.4-8.9); Triglycerides 687 mg/dL (< 150); eGFR For African Americans 28 (> 60); eGFR For Non-African Americans 23 (> 60)
[2022-04-16] MEDS: Norepinephrine 32 MG/250 ML IV.SOLN IVC SCH ×2 (04:53→17:40)
[2022-04-16] MEDS: Phenylephrine 100 MG in 0.9 % Sodium Chloride 250 ML IVC SCH ×3 (06:03→23:35)
[2022-04-16] MEDS: Pantoprazole 40 MG VIAL IVP SCH (08:34)
[2022-04-16] MEDS ORDERED: D5% in Water 1,000 ML IVC PRN (10:56)
[2022-04-16] MEDS ORDERED: Dextrose Gel 15 GM/37.5 ML TUBE PO PRN ×2 (10:56)
[2022-04-16] MEDS ORDERED: *HR* Dextrose 50 % in Water (Syg) 50 ML SYRINGE IVP PRN (10:56)
[2022-04-16] MEDS: Insulin LISPRO 300 UNITS/3 ML VIAL SUBQ SCH ×4 (11:39→23:33)
[2022-04-16] MEDS ORDERED: *HR* Ticagrelor 90 MG TABLET PO ONE (13:28)
[2022-04-16] MEDS ORDERED: *HR* FentaNYL (PF) 100 MCG/2 ML VIAL IVP PRN (17:00)
[2022-04-16] MEDS ORDERED: Clinimix E 5%-20% SOLUTION 2,000 ML with MVI, adult with vitamin K 10 ML IVC SCH (17:00)
[2022-04-16] MEDS ORDERED: *HR* LORazepam 2 MG/ML VIAL IVP PRN (17:01)
[2022-04-17 03:22] LABS: VBG Ionized Calcium 1.18 mmol/L (1.15-1.35)
[2022-04-17 03:49] LABS: Alanine Aminotransferase 14 Units/L (7-52); Albumin < 1.5 g/dL (3.5-5.7); Alkaline Phosphatase 99 Units/L (34-104); Aspartate Amino Transferase 27 Units/L (13-39); BUN/Creatinine Ratio 34 (6-26); Bilirubin,Total 0.9 mg/dL (0.3-1.0); Blood Urea Nitrogen 80 mg/dL (8-23); Calcium 7.2 mg/dL (8.6-10.3); Carbon Dioxide 19 mEq/L (23-29); Chloride 109 mEq/L (98-107); Glucose 427 mg/dL (70-105); Osmolality,Calculated 328 (280-300); Phosphorous 6.4 mg/dL (2.7-4.5); Sodium 138 mEq/L (136-145); Total Protein 3.5 g/dL (6.4-8.9); Triglycerides 151 mg/dL (< 150); eGFR For African Americans 25 (> 60); eGFR For Non-African Americans 20 (> 60)
[2022-04-17] MEDS: Insulin LISPRO 300 UNITS/3 ML VIAL SUBQ SCH ×3 (04:18→13:21)
[2022-04-17] MEDS: Norepinephrine 32 MG/250 ML IV.SOLN IVC SCH (06:18)
[2022-04-17 07:23] VITALS: TEMP 97.8
[2022-04-17] MEDS: Hydrocortisone Sodium Succ 100 MG/2 ML VIAL IVP SCH (08:06)
[2022-04-17] MEDS: Pantoprazole 40 MG VIAL IVP SCH (08:07)
[2022-04-17] MEDS: Phenylephrine 100 MG in 0.9 % Sodium Chloride 250 ML IVC SCH (10:45)
[2022-04-17] MEDS ORDERED: Insulin DETEMIR 100 UNIT/ML X5UNITS SUBQ SCH (11:14)
[2022-04-17] MEDS ORDERED: Saliva Stimulant 44.3ml BOTTLE PO PRN (12:28)
[2022-04-17] MEDS ORDERED: Atropine 1% Opth Drops 100 DROP/5 ML BOTTLE SL PRN (12:28)
[2022-04-17] MEDS ORDERED: *HR* FentaNYL (PF) 100 MCG/2 ML VIAL IVP PRN (12:28)
[2022-04-17] MEDS ORDERED: *HR* LORazepam 2 MG/ML VIAL IVP PRN (12:28)
[2022-04-17] MEDS: Piperacillin/Tazobactam 3.375 GM in 0.9 % Sodium Chloride Mini Bag 100 ML IVPB SCH (13:21)
[2022-04-17] MEDS ORDERED: Atropine Sulfate 1% 40 DROP/2 ML BOTTLE SL PRN (13:30)
[2022-04-17 15:11] VITALS: O2SAT 82
[2022-04-17] MEDS ORDERED: Clinimix 5%-20% SOLUTION 2,000 ML with MVI, adult with vitamin K 10 ML, Sodium Phosph... IVC SCH (17:00)
[2022-04-17] MEDS ORDERED: Clinimix 5%-20% SOLUTION 2,000 ML with Amino Acids 10% 0 ML, MVI, adult with vitamin ... IVC SCH (17:00)
[2022-04-17 17:04] VITALS: BP 40/27; PULSE 79
== END 2022-04-17 18:05 | disposition expired | DRG 698 ==
LOC: EMEROOARM 12:01 → ICNU 18:37
PROVIDERS: ADMIT Pediatrics; ATTEND Pediatrics